=== PATIENT | male | born 1940 | race Caucasian/White ===

== ENCOUNTER 2022-11-07 11:18 | Observation (INO) | payer MEDICARE, SELFPAY ==
[2022-11-07] VITALS (37 sets, daily range): BP systolic 152–200; BP diastolic 54–161; PULSE 63–78; RESP 9–18; TEMP 36.3–36.8; O2SAT 94–100; BMI 29.2
--- NOTE | ~2022-11-07 | XR_ITS ---
XR chest 1V portable 11/07/2022 12:41 Indication: Syncope Procedure: AP portable chest Comparison: No prior studies for comparison. Findings: Heart size normal. No focal air space disease, pulmonary edema, pleural effusion or suspect ed pneumothorax. No acute osseous abnormality. Impression: 1: No acute cardiopulmonary disease. Reviewed, dictated and finalized at location A. Impression: 1: No acute cardiopulmonary disease.
--- NOTE | ~2022-11-07 | US_ITS ---
EXAMINATION: US carotid duplex BI DATE: 11/08/2022 10:25 INDICATION: Syncope TECHNIQUE: Grayscale, color Doppler, and pulsed Doppler images of the cervical carotid arteries were obtained. The degree of vessel stenosis is placed in one of the following categories: normal, <50%, 5 0-69%, >=70% but less than near-occlusion, near-occlusion, or total occlusion. Note that percent sten osis relative to normal distal artery lumen diameter is indirectly measured from velocity measurement s as described by Panda, et al. Radiology 2003; 229:340-346. Notes: Normal: Peak systolic velocity <125 centimeters/sec and no plaque <50%. Peak systolic velocity <125 ( EDV <40; ICA/CCA PSV ratio <2.0; used these factors only a tandem lesions or low cardiac output or co ntralateral disease) 50-69 %: PSV 125-230 (EDV 40-100; ratio 2-4) >= 70% but less than near occlusion: PSV greater than 230 (EDV > 100; ratio> 4.0) Near Occlusion: PSV that is variable; markedly narrowed lumen Occlusion: Absent flow on color/spectral Doppler and no lumen on colby scale. COMPARISON: None. FINDINGS: RIGHT: The right common carotid artery (CCA) peak systolic velocity (PSV) is 74 cm/s. The right internal car otid artery (ICA) PSV is 130 cm/s. The right ICA end-diastolic velocity (EDV) is 40 cm/s. The right I CA/CCA PSV ratio is 1.7. The external carotid artery (ECA) PSV is 309 cm/s. There is antegrade flow i n the right vertebral artery. LEFT: The left CCA PSV is 103 cm/s. The left ICA PSV is 82 cm/s. The left ICA EDV is 26 cm/s. The left ICA/ CCA PSV ratio is 0.8. The ECA PSV is 142 cm/s. There is antegrade flow in the left vertebral artery. IMPRESSION: 1. 50-69% stenosis in the right internal carotid artery by sonographic criteria. 2. Less than 50% stenosis in the left internal carotid artery by sonographic criteria. Reviewed, dictated and finalized at location A. IMPRESSION: 1. 50-69% stenosis in the right internal carotid artery by sonographic criteria . 2. Less than 50% stenosis in the left internal carotid artery by sonographic cr iteria.
--- NOTE | ~2022-11-07 | CT_ITS ---
EXAMINATION: CT cervical spine wo con DATE: 11/07/2022 12:56 INDICATION: Neck pain after fall TECHNIQUE: Computed tomography (CT) of the cervical spine was performed without intravenous contrast. The dose-length product was 452 mGy-cm. Automated exposure control and iterative reconstruction tech nique were employed. COMPARISON: None FINDINGS: There are bilateral vascular stents in the carotid arteries. There is degenerative disc dis ease at C3-4 through C6-7. There is degenerative anterolisthesis at C3-4 and C4-5. Odontoid process i s unremarkable. There is multilevel uncinate hypertrophy. There is mild facet hypertrophy at C2-C3 th rough C4-5. Vertebral body heights are maintained. There is right apical pleural thickening/scarring. This unremarkable craniovertebral junction is normal. No evidence for perched facet. No acute fractu re or traumatic malalignment. IMPRESSION: 1. No acute fracture. 2: Moderate cervical spondylosis. Reviewed, dictated and finalized at location A.
--- NOTE | ~2022-11-07 | CT_ITS ---
EXAMINATION: CT brain wo con DATE: 11/07/2022 12:56 INDICATION: Status post fall. Head injury. TECHNIQUE: Computed tomography (CT) of the head was performed without intravenous contrast. The dose- length product was 681.00 mGy-cm. Automated exposure control and iterative reconstruction technique were employed. COMPARISON: None FINDINGS: Generalized atrophy. There is a scalp hematoma along the left frontal parietal location. Ge neralized atrophy. There are scattered mild periventricular and subcortical white matter changes, mos t likely related to small vessel ischemic disease (microangiopathy). No ventriculomegaly or midline s hift. There is intracranial atherosclerosis. No acute intracranial hemorrhage, infarction, mass or ma ss effect. There is mild mucosal thickening of the maxillary and ethmoid sinuses. Mastoids are pneuma tized. No depressed skull fractures. IMPRESSION: 1. No acute intracranial abnormality. 2: Chronic age-related findings. Reviewed, dictated and finalized at location A.
--- NOTE | 2022-11-07 11:22 | ECG_ITS ---
Measurements Intervals [place] Rate: 67 P: 17 IA: 211 QRS: 45 QRSD: 104 T: 53 QT: 414 QTc: 439 Interpretive Statements SINUS RHYTHM WITH FIRST DEGREE AV BLOCK INCOMPLETE RIGHT BUNDLE BRANCH BLOCK BASELINE ARTIFACT- I, II, III, AVR, V1-V3 BORDERLINE ECG COMPARED TO ECG 11/19/2018 13:04:29 FIRST DEGREE AV BLOCK NOW PRESENT INCOMPLETE RIGHT BUNDLE-BRANCH BLOCK NOW PRESENT Electronically Signed On 11-07-2022 21:31:01 CDT by Lukas Anguiano D.O.
[2022-11-07 11:32] LABS: Basophils Percent Auto 0.6 % (0.2-1.2); Eosinophils Absolute Auto 0.1 K/mm3 (0-0.3); Eosinophils Percent Auto 2.4 % (0-4.4); Hematocrit 43.1 % (42.0-52.0); Hemoglobin 14.6 g/dL (14.0-18.0); Immature Granulocyte Absolute 0.01 K/mm3 (0.00-0.031); Immature Granulocyte Percent A 0.2 % (0-0.5); Immature Platelet Fraction Pct 5.1 % (0.9-11.2); Lymphocytes Absolute Auto 1.67 K/mm3 (0.9-3.2); Mean Corpuscular HGB Conc 33.9 g/dl (32-36); Mean Corpuscular Hemoglobin 31.5 pg (26-34); Mean Corpuscular Volume 92.9 fl (80-100); Mean Platelet Volume 10.4 fl (7.4-10.4); Monocytes Absolute Auto 0.8 K/mm3 (0.1-0.6); Neutrophils Absolute Auto 2.7 K/mm3 (1.3-6.7); Neutrophils Percent Auto 50.8 % (45.5-73.1); Platelet Count Result 133 k/mm3 (150-375); Red Blood Count 4.64 M/mm3 (4.6-6.20); Red Cell Distribution Width 14.3 % (11.5-14.5); White Blood Count 5.4 K/mm3 (4.5-10.0)
--- NOTE | 2022-11-07 12:34 | ED.SYNCOPE ---
HPI - Syncope General Chief Complaint: Syncope Stated Complaint: Syncopal Episode Time Seen by Provider: 11/07/22 12:09 History of Present Illness HPI narrative: Patient is an 82-year-old male with a history of hyperlipidemia, hypertension, TIA presenting after a syncopal episode. Patient does not remember the event. According to family, he was in the bathroom when his grandsons heard a thump. They then found him on the floor. States that he slowly woke up but he seemed confused. Patient's daughter states that he has had episodes of fainting in the past that they have attributed to low blood pressure but normally he wakes up and is completely back at baseline. Patient sustained an abrasion to his head and as he continued to be confused, EMS was called. For EMS, he was ANO x2 which is abnormal for him. He is normally ANO x4. Currently, the patient complains of a headache. Denies numbness or weakness. He denies any chest pain, diaphoresis, palpitations, shortness of breath. States that he was in his normal state of health prior to this episode. No tongue biting or loss of continence. Related Data Home Medications Medication Instructions Recorded Confirmed apixaban 5 mg tablet (Eliquis) 5 mg PO BID 11/07/22 11/07/22 atorvastatin 20 mg tablet 20 mg PO HS 11/07/22 11/07/22 levothyroxine 50 mcg tablet 50 mcg PO DAILY 11/07/22 11/07/22 (Synthroid) lisinopril 20 1 tablet PO DAILY 11/07/22 11/07/22 mg-hydrochlorothiazide 25 mg tablet triamcinolone acetonide 0.1 1 applic topical TID 11/07/22 11/07/22 %-emollient comb.[email or web address] topical cream Allergies Allergy/AdvReac Type Severity Reaction Status Date / Time atorvastatin Allergy Intermediate Other Verified 11/07/22 12:14 Review of Systems Review of Systems: All systems reviewed & are unremarkable except as noted in HPI and below [facility] Past Medical History Medical History (Updated 11/12/22 @ 10:11 by Ama Lowe MD) Chronic anticoagulation Deep venous thrombosis (04/2022) Hyperlipidemia Hypertension Hypothyroidism Transient ischemic attack Surgical History Surgical History (Updated 11/07/22 @ 22:17 by Yovana Dominguez PA-C) History of bilateral knee replacement History of cataract extraction Family History Family History Other Unknown family medical history Social History Social History (Updated 11/07/22 @ 22:18 by oYvana Dominguez PA-C) Social History: Surrogate medical decision maker: Kailey Schuler, spouse. Code status: Full code. Smoking status: Former smoker Tobacco type: pipe Alcohol intake: former Substance use: never Lack of Transportation: YES Lack of Food: Never True Current Housing: I Have Housing Concerned About Future Housing: No Difficulty Paying Gas/Electric Bills: No Difficulty Paying for Meds: No Currently Unemployed: No Education: Trade/Vocational Certificate Difficulty w/ Childcare or Family Care: No Additional living arrangements comments: Lives with spouse in [place]. Occupation/Education: retired Spiritual care concerns: No Agree to blood products: Yes Exam Narrative: GENERAL: Elderly male laying in bed in no acute distress HEAD: Normocephalic, superficial abrasion upper posterior scalp EYES: PERRLA and EOMI. ENT: Nares clear, no rhinorrhea or epistaxis. Mucous membranes moist. NECK: Supple. No midline tenderness CHEST: Clear to auscultation. No respiratory distress. HEART: Regular rate and rhythm. Normal peripheral pulses. ABDOMEN: Soft, nontender, nondistended EXTREMITIES: Normal range of motion. No edema. SKIN: Warm, dry, no rash. NEURO: No focal deficits. Alert and oriented x3. 5 out of 5 strength in all extremities, no sensory deficits, no facial droop PSYCH: Normal mood and affect. Course Vital Signs Vital signs: Vital Signs Temperature 98.2 F 11/07/22 11:14 Pulse Rate 71
--- NOTE | 2022-11-07 12:46 | PC.NURSE ---
pt off floor to radiology.
[2022-11-07] MEDS: LACTATED RINGERS 1,000 ML 999 ML IV CONT (13:19)
[2022-11-07 13:30] LABS: INR 1.2; Partial Thromboplastin Time 27.5 SECONDS (22.3-36.8); Prothrombin Time 14.5 Seconds (11.1-14.7)
[2022-11-07 13:43] LABS: Troponin I < 0.012 ng/mL (0.000-0.034)
--- NOTE | 2022-11-07 14:11 | PC.NURSE ---
Called lab inquiring about CMP. Lab to run at this time.
[2022-11-07 14:22] LABS: Alanine Aminotransferase 54 U/L (6-50); Albumin Level 4.1 g/dL (3.5-5.1); Alkaline Phosphatase 58 U/L (38-126); Anion Gap 7 mmol/L (8-16); Aspartate Amino Transferase 48 U/L (17-59); Bilirubin,Total 0.5 mg/dL (0.2-1.3); Blood Urea Nitrogen 24 mg/dL (9-20); Calcium 9.2 mg/dL (8.4-10.2); Carbon Dioxide 34 mmol/L (22-30); Chloride 98 mmol/L (98-107); Estimated CRCL calculation 56 ml/min; Estimated Glomerular Filt Rate > 60; Glucose 117 mg/dL (65-110); Potassium 4.6 mmol/L (3.4-5.0); Sodium 139 mmol/L (137-145)
--- NOTE | 2022-11-07 14:33 | PC.NURSE ---
pt improving, oriented to person, place, AND time currently. Updated on lab results.
--- NOTE | 2022-11-07 15:20 | PC.NURSE ---
Orthostatics complete. Pt able to stand with minimal assistance. Reported light headedness when transferring from laying to sitting, but BP increased. Was able to continue standing to urinate independently.
--- NOTE | 2022-11-07 16:15 | PC.NURSE ---
MD aware of elevated BP. No orders or interventions at this time. Per MD, against standard of care to treat asymptomatic HTN.
--- NOTE | 2022-11-07 16:45 | PC.NURSE ---
Report called to Ama on [facility].
[2022-11-07 16:51] LABS: Troponin I < 0.012 ng/mL (0.000-0.034)
--- NOTE | 2022-11-07 18:00 | ADMGEN ---
This patient, Emigdio Schuler, was admitted to Medical Room 260-01. Patient/family oriented to hospital policies and general routines including ID bracelet, bed and alarms, visiting hours, pain management, procedures, bathroom and other care routines, personal items, smoking policy, room service/diet, and visiting hours. Information on how to activate the Rapid Response Team has been discussed. Patient/Family are encouraged to report perceived risks to care and to ask questions if they do not understand what they are told or what they should do.
--- NOTE | 2022-11-07 20:15 | PM.IMHP ---
H&P: HPI History of Present Illness Date/Time: 11/07/22 20:15 Chief Complaint: Syncope. Narrative: This is a pleasant 82-year-old male with hypertension, hyperlipidemia, hypothyroidism, and DVT on anticoagulation who presented to the emergency department for evaluation after syncopal episode. Patient provides the following history. He reportedly felt just fine when he got up this morning. Not long prior to arrival he went to the bathroom and had an uneventful bowel movement. The next thing he knew he was waking up on the floor on his left side. Grandson heard him fall and when he ran to the bathroom the patient was alert but seemed a bit confused. He does remember feeling perhaps a bit nauseated and lightheaded prior to the incident. He does not recall having chest pain or shortness of breath. He also denies vertigo, auditory and visual changes, focal weakness, paresthesias, palpitations, and sensations of racing heart. He has a history of syncope related to low blood pressure but that has not happened recently. On arrival to the emergency department he was alert and oriented x4. His blood pressures have been stable and in fact they have been running high, in the 150s to 180s systolic. Labs did not show any significant abnormalities when compared to prior testing. EKG showed a sinus rhythm with first-degree AV block and incomplete right bundle branch block. No acute findings were noted on CT of the head, cervical spine, or chest x-ray. He is being admitted in this setting for closer monitoring. Currently he has no complaints aside from a bit of a headache on the left side. Review of Systems Review of Systems: Twelve systems were reviewed and are negative except for as per HPI. [facility] Past Medical History Medical History (Updated 11/07/22 @ 22:18 by Yovana Dominguez PA-C) Chronic anticoagulation Deep venous thrombosis (04/2022) Hyperlipidemia Hypertension Hypothyroidism Transient ischemic attack Surgical History Surgical History (Updated 11/07/22 @ 22:17 by Yovana Dominguez PA-C) History of bilateral knee replacement History of cataract extraction Family History Family History Other Unknown family medical history Social History Social History (Updated 11/07/22 @ 22:18 by Yovana Dominguez PA-C) Social History: Surrogate medical decision maker: Kailey Birdsell, spouse. Code status: Full code. Smoking status: Former smoker Tobacco type: pipe Alcohol intake: former Substance use: never Lack of Transportation: YES Lack of Food: Never True Current Housing: I Have Housing Concerned About Future Housing: No Difficulty Paying Gas/Electric Bills: No Difficulty Paying for Meds: No Currently Unemployed: No Education: Trade/Vocational Certificate Difficulty w/ Childcare or Family Care: No Additional living arrangements comments: Lives with spouse in [place]. Occupation/Education: retired Spiritual care concerns: No Agree to blood products: Yes Meds Home Medications and Allergies Home Medications Medication Instructions Recorded Confirmed Type apixaban 5 mg tablet (Eliquis) 5 mg PO BID 11/07/22 11/07/22 History atorvastatin 20 mg tablet 20 mg PO HS 11/07/22 11/07/22 History levothyroxine 50 mcg tablet 50 mcg PO DAILY 11/07/22 11/07/22 History (Synthroid) lisinopril 20 1 tablet PO DAILY 11/07/22 11/07/22 History mg-hydrochlorothiazide 25 mg tablet triamcinolone acetonide 0.1 1 applic topical TID 11/07/22 11/07/22 History %-emollient comb.no.45 topical cream Allergies Allergy/AdvReac Type Severity Reaction Status Date / Time atorvastatin Allergy Intermediate Other Verified 11/07/22 12:14 Vital Signs Vital Signs - 24 hr 11/07/22 11:14 11/07/22 12:14 11/07/22 13:03 Temperature 98.2 F Pulse Rate 71 67 69 Respiratory Rate 14 14 Blood Pressure 160/91 H Pulse Oximetry 96 97 Oxygen
[2022-11-07 20:53] LABS: Troponin I < 0.012 ng/mL (0.000-0.034)
[2022-11-07] MEDS: ACETAMINOPHEN 325 MG TABLET 650 MG PO (22:39)
[2022-11-08] VITALS (14 sets, daily range): BP systolic 100–173; BP diastolic 40–72; PULSE 63–81; RESP 16–18; TEMP 36.3–36.4; O2SAT 95–98
[2022-11-08] MEDS: hydrALAZINE HCL 20 MG/ML VIAL 10 MG IV PUSH (03:44)
[2022-11-08 05:40] LABS: Hematocrit 40.1 % (42.0-52.0); Hemoglobin 13.7 g/dL (14.0-18.0); Immature Platelet Fraction Pct 5.9 % (0.9-11.2); Mean Corpuscular HGB Conc 34.2 g/dl (32-36); Mean Corpuscular Hemoglobin 31.7 pg (26-34); Mean Corpuscular Volume 92.8 fl (80-100); Platelet Count Result 127 k/mm3 (150-375); Red Blood Count 4.32 M/mm3 (4.6-6.20); Red Cell Distribution Width 14.4 % (11.5-14.5); White Blood Count 5.2 K/mm3 (4.5-10.0)
[2022-11-08] MEDS: LEVOTHYROXINE SODIUM 50 MCG TABLET PO (05:41)
[2022-11-08 05:46] LABS: Alanine Aminotransferase 43 U/L (6-50); Albumin Level 3.6 g/dL (3.5-5.1); Alkaline Phosphatase 48 U/L (38-126); Anion Gap 5 mmol/L (8-16); Aspartate Amino Transferase 36 U/L (17-59); Bilirubin,Total 0.7 mg/dL (0.2-1.3); Blood Urea Nitrogen 21 mg/dL (9-20); Calcium 8.4 mg/dL (8.4-10.2); Carbon Dioxide 27 mmol/L (22-30); Chloride 104 mmol/L (98-107); Estimated CRCL calculation 65 ml/min; Estimated Glomerular Filt Rate > 60; Glucose 114 mg/dL (65-110); Magnesium 1.4 mg/dL (1.6-2.3); Potassium 3.7 mmol/L (3.4-5.0); Sodium 136 mmol/L (137-145)
[2022-11-08] MEDS: lisinopriL 20 MG TABLET PO (09:51)
[2022-11-08] MEDS: hydroCHLOROthiazide 25 MG TABLET PO (09:52)
[2022-11-08] MEDS: TRIAMCINOLONE ACET 0.1% CREAM 80 GM TUBE 1 APPLIC TOPICAL (09:52)
[2022-11-08] MEDS: ACETAMINOPHEN 325 MG TABLET 650 MG PO (10:58)
--- NOTE | 2022-11-08 11:57 | PM.IMPN ---
Progress Note: A&P Assessment and Plan (1) Syncope: Code(s): R55 - Syncope and collapse Status: Acute (2) Scalp hematoma: Code(s): S00.03XA - Contusion of scalp, initial encounter Status: Acute (3) Hypertension: Code(s): I10 - Essential (primary) hypertension Status: Acute (4) Hyperlipidemia: Code(s): E78.5 - Hyperlipidemia, unspecified Status: Acute (5) Hypothyroidism: Code(s): E03.9 - Hypothyroidism, unspecified Status: Acute (6) Chronic anticoagulation: Code(s): Z79.01 - retirement (current) use of anticoagulants Status: Acute Plan The patient presented to the emergency department via EMS from home for evaluation of a syncopal episode which occurred shortly after having an unremarkable bowel movement. Labs, imaging, EKG, and all reports were personally reviewed. Patient does mention feeling perhaps a bit nauseated and lightheaded prior to the event and I suspect this is likely a vasovagal syncope. He apparently has a history of syncopal episodes related to drop in blood pressure though his blood pressures have been running high since arrival. EKG does not show any acute ST segment changes but does show a first-degree block and incomplete right bundle branch block which are new compared to prior tracings. He will be monitor on telemetry to rule out cardiac dysrhythmia. Echocardiogram and carotid Doppler ultrasounds ordered for further evaluation. Orthostatic vital signs will be monitored. Fall precautions initiated. Apixaban will be held for 24 hours given the fall with scalp hematoma. Pulmonary embolism unlikely as he has been compliant with apixaban he denies chest pain shortness a breath. Continue neurologic checks in the interim. Continue levothyroxine and check TSH. The rest of his home medications will be reviewed and resumed as appropriate. 11/08/2022 interval history: 82-year-old male presented with complaint of syncopal episode, there were no prodrome symptoms or chest pain shortness of breath dizziness or palpitation, so far on the workup is negative including troponin carotid ultrasound showed 1. 50-69% stenosis in the right internal carotid artery by sonographic criteria. 2. Less than 50% stenosis in the left internal carotid artery by sonographic criteria and cardiac echo is pending. Currently patient is taking Eliquis for DVT, will add low-dose aspirin and patient is taking Lipitor 20 mg will increase to 40 mg q.d., will have a PT OT evaluate the patient and further recommendation to follow, will discharge the patient home tomorrow. Patient is present in the room answered all her questions. Subjective Date/time seen: 11/08/22 11:57 Syncope. HPI-Narrative: This is a pleasant 82-year-old male with hypertension, hyperlipidemia, hypothyroidism, and DVT on anticoagulation who presented to the emergency department for evaluation after syncopal episode. Patient provides the following history. He reportedly felt just fine when he got up this morning.? Not long prior to arrival he went to the bathroom and had an uneventful bowel movement. The next thing he knew he was waking up on the floor on his left side. Grandson heard him fall and when he ran to the bathroom the patient was alert but seemed a bit confused. He does remember feeling perhaps a bit nauseated and lightheaded prior to the incident. He does not recall having chest pain or shortness of breath. He also denies vertigo, auditory and visual changes, focal weakness, paresthesias, palpitations, and sensations of racing heart. He has a history of syncope related to low blood pressure but that has not happened recently. On arrival to the emergency department he was alert and oriented x4. His blood pressures have been stable and in fact they have been running high, in the 150s to 180s systolic. Labs did not show any significant abnormalities when compared to prior testing. EKG showed a sinus rhythm with first-degr
[2022-11-08] MEDS: ATORVASTATIN 20 MG TABLET PO (21:05)
[2022-11-09] VITALS (9 sets, daily range): BP systolic 115–149; BP diastolic 62–76; PULSE 59–70; RESP 14–18; TEMP 35.1–37; O2SAT 96–99
[2022-11-09] MEDS: LEVOTHYROXINE SODIUM 50 MCG TABLET PO (05:59)
[2022-11-09] MEDS: lisinopriL 20 MG TABLET PO (08:46)
[2022-11-09] MEDS: APIXABAN 5 MG TABLET PO (08:46)
[2022-11-09] MEDS: hydroCHLOROthiazide 25 MG TABLET PO (08:46)
[2022-11-09] MEDS: PERFLUTREN LIPID MICROSPHERES 1.5 ML VIAL DILUTED TO 10 ML TOTAL VOLUME IV PUSH (10:05)
--- NOTE | 2022-11-09 10:05 | IVDEFINITY ---
Prior to administration of IV Definity the patient was educated on the risks and benefits of the imaging enhancing agent including potential adverse side effects. The patient verbalized understanding. Allergies were verified. No exclusion criteria were identified and at least one of the following inclusion criteria were met: 1) physician request, 2) patient technically difficult to image (per the [place] [employer] guidelines of two or more segments not discernable within the apical view), or 3) questionable left ventricular function. ?
[2022-11-09] MEDS: ACETAMINOPHEN 325 MG TABLET 650 MG PO ×2 (11:08)
--- NOTE | 2022-11-09 17:13 | PM.DS ---
DS: Admitting Diagnosis Discharge Date 10/12/2022 Admitting Diagnosis Syncope DS: Discharge Diagnosis Discharge Diagnosis (1) Syncope: Code(s): R55 - Syncope and collapse Status: Acute (2) Scalp hematoma: Code(s): S00.03XA - Contusion of scalp, initial encounter Status: Acute (3) Hypertension: Code(s): I10 - Essential (primary) hypertension Status: Acute (4) Hyperlipidemia: Code(s): E78.5 - Hyperlipidemia, unspecified Status: Acute (5) Hypothyroidism: Code(s): E03.9 - Hypothyroidism, unspecified Status: Acute (6) Chronic anticoagulation: Code(s): Z79.01 - nursing home (current) use of anticoagulants Status: Acute DS: Summary Hospital Course Reason for hospitalization: Syncope. Narrative: This is a pleasant 82-year-old male with hypertension, hyperlipidemia, hypothyroidism, and DVT on anticoagulation who presented to the emergency department for evaluation after syncopal episode. Patient provides the following history. He reportedly felt just fine when he got up this morning.? Not long prior to arrival he went to the bathroom and had an uneventful bowel movement. The next thing he knew he was waking up on the floor on his left side. Grandson heard him fall and when he ran to the bathroom the patient was alert but seemed a bit confused. He does remember feeling perhaps a bit nauseated and lightheaded prior to the incident. He does not recall having chest pain or shortness of breath. He also denies vertigo, auditory and visual changes, focal weakness, paresthesias, palpitations, and sensations of racing heart. He has a history of syncope related to low blood pressure but that has not happened recently. On arrival to the emergency department he was alert and oriented x4. His blood pressures have been stable and in fact they have been running high, in the 150s to 180s systolic. Labs did not show any significant abnormalities when compared to prior testing. EKG showed a sinus rhythm with first-degree AV block and incomplete right bundle branch block. No acute findings were noted on CT of the head, cervical spine, or chest x-ray. He is being admitted in this setting for closer monitoring. Currently he has no complaints aside from a bit of a headache on the left side. Hospital Course: 82-year-old male presented with complaint of syncopal episode, there were no prodrome symptoms or chest pain shortness of breath dizziness or palpitation, so far on the workup is negative including troponin carotid ultrasound showed?1. 50-69% stenosis in the right internal carotid artery by sonographic criteria. 2. Less than 50% stenosis in the left internal carotid artery by sonographic criteria and cardiac echo is pending.? Currently patient is taking Eliquis for DVT, will add low-dose aspirin and patient is taking Lipitor 20 mg will increase to 40 mg q.d., will have a PT OT evaluate the patient and further recommendation to follow, will discharge the patient home tomorrow.? Patient is present in the room answered all her questions. Patient is instructed be careful with getting up and sitting down, use walker and support, patient to follow-up with his primary care provider as soon as possible, patient is instructed if any symptoms worsen to go to nearest emergency department Time Spent with Patient Time attestation: Total time spent providing and/or coordinating discharge services: Exam Narrative: Patient is comfortable, NAD HEENT: eyes are clear and none icteric LUNGS:CTA HEART: RR S1S2 ABD: BS+, Soft and nontender Lower extremities: no edema SKIN: nonjaundiced Neuro: grossly intact. Discharge Plan Discharge Attending physician on discharge: Ramonita Fontenot Consulting providers: Yovana Dominguez ; Lukas Anguiano ; Bryan Langley ; Shan Butler Discharging Clinician: Ramonita Fontenot Patient Disposition: Home, Self-Care Activity: as tolerated Diet: hea
--- NOTE | 2022-11-09 22:19 | ECHO_ITS ---
Patient Info Name: Emigdio Schuler Age: 82 years : 1940 Gender: Male Ht: 71 in Wt: 198 lbs BSA: 2.14 m2 HR: 60 bpm BP: 146 / 62 mmHg Heart Rhythm: Sinus Rhythm Technical Quality: Fair Exam Date: 11/09/2022 9:21 AM Exam Location: [facility] Patient Status: Outpatient Admit Date: 11/07/2022 Staff Ordering Physician: Yovana Dominguez PA-C Affiliate Manager: Elsie Hart RDCS Attending Provider: Ramonita Fontenot MD Referring Physician: Angelica HU; Exam Type: CA echo dop color flow w con Study Info Indications R55 - Syncope and collapse Complete two-dimensional, color flow and Doppler transthoracic echocardiogram is performed with contrast to opacify the left ventricle and to improve the deliniation of the left ventricle endocardial borders. Contrast/Agitated Saline Contrast/Ag. Saline: Definity Amount: 3.00 ml Administered By: Elsie Hart RDCS Existing IV Access: Yes IV Access Condition: patent with no signs of infiltration Summary 1. Definity contrast used to improve visualization. 2. Normal left ventricular size and systolic function with grade 1 diastolic noncompliance. 3. Mildly sclerotic aortic valve which is not stenotic. 4. Modest left atrial enlargement. Left Ventricle Left ventricular chamber dimension is normal. Left ventricular systolic function is hyperdynamic, estimated at Empty. There is mild concentric increased left ventricular wall thickness. The left ventricular diastolic function is grade I diastolic dysfunction. Right Ventricle Right ventricular chamber dimension is normal. Left Atria Left atrial chamber dimension is mildly enlarged. Right Atria Right atrial chamber dimension is normal. Aortic Valve The aortic valve is trileaflet. There is mild aortic valve sclerosis. Pulmonic Valve The pulmonic valve is not well visualized. Mitral Valve The mitral valve has normal leaflets. Tricuspid Valve The tricuspid valve leaflets are normal. Pericardium/Pleural The pericardium appears normal. Aorta The aortic root size at the sinus of Valsalva is normal. Left Ventricular Outflow Tract Name Value Normal LVOT 2D LVOT Diameter 1.99 cm LVOT Doppler LVOT Peak Gradient 4 mmHg LVOT Mean Gradient 2 mmHg LVOT VTI 20.53 cm LVOT VTI/AV VTI Ratio 0.65 LVOT Stroke Volume 63.97 ml LVOT CO 4.05 l/min LVOT CI 1.90 L/min/m2 Pulmonic Valve Name Value Normal RVOT Doppler RVOT Peak Gradient 2 mmHg PV Doppler PV Peak Gradient
== END 2022-11-09 18:13 | disposition home or self-care (01) ==
LOC: ANHED 12:09 → ANH2MED 16:15
PROVIDERS: Emergency Medicine; Physician Assistant; Admitting Provider Family Medicine; Emergency Provider Emergency Medicine; PCP Family Medicine; Visit Provider Family Medicine
DX: R55 Syncope and collapse (principal); S00.03XA Contusion of scalp, initial encounter; Y92.002 Bathroom of unspecified non-institutional (private) residence as the place of occurrence of the external cause; I65.21 Occlusion and stenosis of right carotid artery; I10 Essential (primary) hypertension; E78.5 Hyperlipidemia, unspecified; E03.9 Hypothyroidism, unspecified; M47.812 Spondylosis without myelopathy or radiculopathy, cervical region; I44.0 Atrioventricular block, first degree; I45.10 Unspecified right bundle-branch block; Z86.73 Personal history of transient ischemic attack (TIA), and cerebral infarction without residual deficits; Z86.718 Personal history of other venous thrombosis and embolism; Z79.01 Long term (current) use of anticoagulants; Z79.52 Long term (current) use of systemic steroids; Z79.899 Other long term (current) drug therapy; Z87.891 Personal history of nicotine dependence
CPT/HCPCS: 36415; 70450; 71045; 72125; 80053; 83735; 84443; 84484; 85025; 85027; 85055; 85610; 85730; 93005; 93880; 96361; 96374; 96375; 97161; 97165; 97530; 99285; A9270; C8929; G0378; J0131; J0360; J7120; Q9957

== ENCOUNTER 2022-12-01 10:44 | Observation (INO) | payer MEDICARE, SELFPAY ==
[2022-12-01] VITALS (23 sets, daily range): BP systolic 112–187; BP diastolic 49–75; PULSE 63–91; RESP 10–27; TEMP 36.7–37.1; O2SAT 88–100; BMI 27.2
--- NOTE | ~2022-12-01 | CT_ITS ---
EXAMINATION: CT brain wo con DATE: 12/01/2022 11:51 INDICATION: Lightheadedness. Fall. TECHNIQUE: Computed tomography (CT) of the head was performed without intravenous contrast. The mA wa s adjusted according to patient size. Iterative reconstruction technique was employed. The dose-lengt h product was 605.33 mGy-cm. COMPARISON: Head CT 11/07/2022 FINDINGS: There are scattered areas of low attenuation in the cerebral white matter. There is no intr acranial hemorrhage, acute infarction, or abnormal intracranial mass lesion. The ventricles are abhay l in size. There is mild mucosal thickening in the paranasal sinuses. There are likely changes of ocu lar lens replacement surgeries. The mastoid air cells are normal. There is left frontal scalp soft ti ssue swelling. IMPRESSION: 1. Stable moderate nonspecific cerebral white matter disease, which likely represents chronic small v essel ischemic disease. Reviewed, dictated and finalized at location A. IMPRESSION: 1. Stable moderate nonspecific cerebral white matter disease, which likely repr esents chronic small vessel ischemic disease.
--- NOTE | ~2022-12-01 | MR_ITS ---
EXAMINATION: MR brain/brain stem wo con DATE: 12/02/2022 13:26 INDICATION: Stroke. TECHNIQUE: Magnetic resonance imaging (MRI) of the brain and brainstem was performed without intraven ous contrast. COMPARISON: Head CT 12/01/2022 FINDINGS: There is an acute infarct in the josee on the left. There is no intracranial hemorrhage or a bnormal mass lesion. There are scattered areas of nonspecific increased T2-weighted signal intensity in the cerebral white matter and josee. The ventricles are normal in size. There is mild mucosal thick ening in the paranasal sinuses. There are likely changes of ocular lens replacement surgeries. The ma stoid air cells are normal. IMPRESSION: 1. Acute infarct in the josee on the left. 2. Moderate nonspecific cerebral white matter disease and pontine disease, which likely represents ch ronic small vessel ischemic disease. Reviewed, dictated and finalized at location A. IMPRESSION: 1. Acute infarct in the josee on the left. 2. Moderate nonspecific cerebral white matter disease and pontine disease, whic h likely represents chronic small vessel ischemic disease.
--- NOTE | ~2022-12-01 | CT_ITS ---
EXAMINATION: CTA brain carotid DATE: 12/02/2022 09:35 INDICATION: Syncope. Slurred speech. Confusion. TECHNIQUE: Computed tomographic angiography (CTA) of the head was performed without and with 100 mL O mnipaque-350 intravenous contrast. CTA of the neck was performed with intravenous contrast. Automated exposure control and iterative reconstruction technique were employed. The dose-length product was 1 791.10 mGy-cm. Maximum intensity projection and volume rendered 3D-reconstructions were created by ana shelton technologist on a separate workstation. COMPARISON: Head CT 12/01/2022 FINDINGS: HEAD CTA: There are scattered areas of low attenuation in the cerebral white matter. There is no intr acranial hemorrhage, acute infarction, or abnormal intracranial mass lesion. The ventricles are abhay l in size. There are likely changes of ocular lens replacement surgeries. There is mild mucosal thick ening in the paranasal sinuses. The mastoid air cells are normal. The vertebral arteries are codomina nt. There is no significant stenosis of basilar artery or the posterior cerebral arteries. Posterior communicating arteries are not identified. There is moderate stenosis of the intracranial internal ca rotid arteries. There is no significant stenosis of the anterior or middle cerebral arteries. Anterio r communicating artery is normal. There is no aneurysm. NECK CTA: There is mild scarring at the lung apices. There are no pathologically enlarged lymph nodes . There is a 2.1 cm sialolith in the left floor of mouth in the duct for left submandibular gland. Th ere is severe atrophy of left submandibular gland. There is no significant stenosis of the vertebral arteries. There are patent stents of the cervical carotid arteries. There is plaque in right internal carotid artery extending beyond the distal margin of the stent with 32% stenosis relative to normal distal artery lumen diameter. There is severe cervical spondylosis. IMPRESSION: 1. Stable moderate nonspecific cerebral white matter disease, which likely represents chronic small v essel ischemic disease. 2. 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 3. Patent stents in the cervical carotid arteries. 4. 32% stenosis of the right internal carotid artery distal to the stent relative to normal distal ar christianne lumen diameter. Reviewed, dictated and finalized at location A. IMPRESSION: 1. Stable moderate nonspecific cerebral white matter disease, which likely repr esents chronic small vessel ischemic disease. 2. 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 3. Patent stents in the cervical carotid arteries. 4. 32% stenosis of the right internal carotid artery distal to the stent relati ve to normal distal artery lumen diameter.
--- NOTE | ~2022-12-01 | XR_ITS ---
EXAMINATION: XR chest 1V portable 12/01/2022 11:40 INDICATION: Status post fall. Chest pain. PROCEDURE: AP portable chest COMPARISON: 11/07/2022 FINDINGS: Left basilar atelectasis/scarring. No focal pneumonia. The cardiomediastinal silhouette is within normal limits. There are no pleural effusions. There is no pneumothorax suspected. IMPRESSION: 1: NO ACUTE CARDIOPULMONARY DISEASE. Reviewed, dictated and finalized at location L.
--- NOTE | ~2022-12-01 | CT_ITS ---
EXAMINATION: CT cervical spine wo con DATE: 12/01/2022 11:51 INDICATION: Neck injury. TECHNIQUE: Computed tomography (CT) of the cervical spine was performed without intravenous contrast. Automated exposure control and iterative reconstruction technique were employed. The dose-length pro duct was 496.39 mGy-cm. COMPARISON: None FINDINGS: There are stents in the bilateral carotid arteries. There is 2 mm anterolisthesis of C4 on C5. Vertebral body heights are normal. There is mildly decreased disc height at C3-C4 and C4-C5 and s everely decreased disc height at C5-C6 and C6-C7. The following disc levels are specifically discusse d: C2-C3: There is mild bilateral uncovertebral joint osteoarthritis. There is mild right and severe lef t facet joint osteoarthritis. There is moderate left neural foraminal stenosis. There is no central c anal stenosis. C3-C4: There is mild bilateral uncovertebral joint osteoarthritis. There is severe right and moderate left facet joint osteoarthritis. There is mild bilateral neural foraminal stenosis. There is mild ce ntral canal stenosis. C4-C5: There is mild left uncovertebral joint osteoarthritis. There is severe bilateral facet joint o steoarthritis. There is mild bilateral neural foraminal stenosis. There is mild central canal stenosi s. C5-C6: There is severe bilateral uncovertebral joint osteoarthritis. There is mild bilateral facet alfonzo int osteoarthritis. There is moderate bilateral neural foraminal stenosis. There is mild central alexus l stenosis. C6-C7: There is severe bilateral uncovertebral joint osteoarthritis. There is moderate right and mild left facet joint osteoarthritis. There is mild right and moderate left neural foraminal stenosis. Th ere is moderate central canal stenosis. C7-T1: There is mild bilateral uncovertebral joint osteoarthritis. There is severe bilateral facet alfonzo int osteoarthritis. There is mild bilateral neural foraminal stenosis. There is no central canal sten osis. IMPRESSION: 1. No fracture. 2. Severe cervical spondylosis. Reviewed, dictated and finalized at location A.
--- NOTE | 2022-12-01 10:53 | ECG_ITS ---
Measurements Intervals [place] Rate: 58 P: NM: 0 QRS: 61 QRSD: 94 T: 67 QT: 429 QTc: 423 Interpretive Statements SINUS BRADYCARDIA WITH FIRST-DEGREE AV BLOCK MODERATE ST DEPRESSION NONSPECIFIC ST ABNORMALITY BORDERLINE ECG COMPARED TO ECG 11/07/2022 11:23:06 ST (T WAVE) DEVIATION NOW PRESENT Electronically Signed On 12-01-2022 16:24:48 CDT by Leander Bergman M.D.
[2022-12-01 11:30] LABS: Basophils Percent Auto 0.8 % (0.2-1.2); Eosinophils Absolute Auto 0.1 K/mm3 (0-0.3); Eosinophils Percent Auto 1.9 % (0-4.4); Hematocrit 42.2 % (42.0-52.0); Hemoglobin 14.5 g/dL (14.0-18.0); Immature Granulocyte Absolute 0.01 K/mm3 (0.00-0.031); Immature Granulocyte Percent A 0.2 % (0-0.5); Immature Platelet Fraction Pct 5.8 % (0.9-11.2); Lymphocytes Absolute Auto 1.83 K/mm3 (0.9-3.2); Lymphocytes Percent Auto 35.4 % (18.3-44.2); Mean Corpuscular HGB Conc 34.4 g/dl (32-36); Mean Corpuscular Hemoglobin 32.3 pg (26-34); Mean Platelet Volume 10.8 fl (7.4-10.4); Monocytes Absolute Auto 0.9 K/mm3 (0.1-0.6); Neutrophils Absolute Auto 2.3 K/mm3 (1.3-6.7); Neutrophils Percent Auto 44.7 % (45.5-73.1); Platelet Count Result 143 k/mm3 (150-375); Red Blood Count 4.49 M/mm3 (4.6-6.20); Red Cell Distribution Width 14.3 % (11.5-14.5); White Blood Count 5.2 K/mm3 (4.5-10.0)
[2022-12-01 11:44] LABS: Alanine Aminotransferase 61 U/L (6-50); Albumin Level 4.3 g/dL (3.5-5.1); Alkaline Phosphatase 50 U/L (38-126); Anion Gap 7 mmol/L (8-16); Aspartate Amino Transferase 59 U/L (17-59); Bilirubin,Total 0.7 mg/dL (0.2-1.3); Blood Urea Nitrogen 24 mg/dL (9-20); Calcium 9.4 mg/dL (8.4-10.2); Carbon Dioxide 32 mmol/L (22-30); Chloride 99 mmol/L (98-107); Estimated Glomerular Filt Rate > 60; Glucose 116 mg/dL (65-110); Potassium 4.6 mmol/L (3.4-5.0); Sodium 138 mmol/L (137-145)
[2022-12-01 11:54] LABS: INR 1.2; Prothrombin Time 14.5 Seconds (11.1-14.7)
[2022-12-01 11:55] LABS: Troponin I < 0.012 ng/mL (0.000-0.034)
[2022-12-01 11:55] LABS: Partial Thromboplastin Time 28.2 SECONDS (22.3-36.8)
[2022-12-01] MEDS: SODIUM CHLORIDE 0.9% IV 1,000 ML 999 ML IV CONT (13:06)
[2022-12-01 13:23] LABS: Appearance Urine Clear (Clear); Bacteria Urine None Seen /hpf; Bilirubin Urine Negative (Negative); Blood Urine Negative (Negative); Color Urine Yellow (Yellow); Glucose Urine UA Negative (Negative); Ketones Urine Negative (Negative); Leukocyte Esterase Ur Trace LEU/UL (Negative); Nitrate Urine Negative (Negative); Non Pathogenic Casts 0-2; Protein Urine Negative (Negative); RBC Urine 0-2 /hpf (0-2); Specific Grav Ur 1.011 (1.001-1.035); Squamous Epithelial Cell Urine None seen /hpf (Few); Urobilinogen Urine 0.2 mg/dL (<2.0); WBC Urine 0-5 /hpf; pH Urine 7.5 (5.0-9.0)
--- NOTE | 2022-12-01 13:23 | ED.GENADULT ---
HPI - General Adult General Chief complaint: Dizziness Stated complaint: light-headed Time Seen by Provider: 12/01/22 11:06 Source: RN notes reviewed History of Present Illness HPI narrative: Patient presents emergency department via EMS for syncopal episode. 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 He was sitting in a chair when he states he felt lightheaded and then slid out of the chair onto the ground per bystanders patient was noted to have some low blood pressures as well as not be able to assist with sitting up or taken off sure when EMS initially arrived. Patient denies having recent illness to use any chest pain shortness of breath abdominal pain nausea vomiting patient was recently admitted to the hospital for syncopal episode approximately 1 month ago with negative for Related Data Home Medications Medication Instructions Recorded Confirmed apixaban 5 mg tablet (Eliquis) 5 mg PO BID 11/07/22 11/07/22 atorvastatin 20 mg tablet 20 mg PO HS 11/07/22 11/07/22 levothyroxine 50 mcg tablet 50 mcg PO DAILY 11/07/22 11/07/22 (Synthroid) lisinopril 20 1 tablet PO DAILY 11/07/22 11/07/22 mg-hydrochlorothiazide 25 mg tablet triamcinolone acetonide 0.1 1 applic topical TID 11/07/22 11/07/22 %-emollient [id number].[email or web address] topical cream Allergies Allergy/AdvReac Type Severity Reaction Status Date / Time atorvastatin Allergy Intermediate Other Verified 12/01/22 10:52 Review of Systems Review of Systems: Gen.: Denies fevers or chills Eyes: Denies eye pain or visual change ENT: Denies congestion Respiratory: Denies shortness of breath or cough CV: Denies chest pain or palpitations reports syncope GI: Denies abdominal pain nausea, emesis or diarrhea Musculoskeletal: Denies back pain or muscle pain Neuro: Denies numbness, tingling, weakness or focal weakness Skin: Denies rash Except as documented, all other systems reviewed and negative [facility] Past Medical History Medical History Chronic anticoagulation Deep venous thrombosis (04/2022) Hyperlipidemia Hypertension Hypothyroidism Transient ischemic attack Surgical History Surgical History (Updated 11/07/22 @ 22:17 by Yovana Dominguez PA-C) History of bilateral knee replacement History of cataract extraction Family History Family History Other Unknown family medical history Social History Social History Social History: Surrogate medical decision maker: Kailey Schuler, spouse. Code status: Full code. Smoking status: Former smoker Tobacco type: pipe Alcohol intake: former Substance use: never Lack of Transportation: YES Lack of Food: Never True Current Housing: I Have Housing Concerned About Future Housing: No Difficulty Paying Gas/Electric Bills: No Difficulty Paying for Meds: No Currently Unemployed: No Education: Trade/Vocational Certificate Difficulty w/ Childcare or Family Care: No Additional living arrangements comments: Lives with spouse in [place]. Occupation/Education: retired Spiritual care concerns: No Agree to blood products: Yes Exam Narrative: APPEARANCE: No acute distress, nontoxic, resting in bed HEENT: Normocephalic, atraumatic, OMM, TMs clear bilaterally EYES: PERRL, EOMI NECK: Supple, nontender, full range of motion without pain, no meningismus RESPIRATORY: No respiratory distress, clear to auscultation bilaterally with no rhonchi wheezing or rales CARDIOVASCULAR: RRR s murmur ABDOMINAL: Soft, nontender, nondistended MUSCULOSKELETAL: Moves all extremities. No clubbing, cyanosis or edema. NEURO: A and O ?3, following commands, speech normal, cranial nerves II through XII grossly intact,muscle strength 5 out of 5 bilateral upper and lower extremities SKIN:: Warm,
[2022-12-01 13:55] LABS: Add Urine Microscopic? YES
[2022-12-01 15:06] LABS: Troponin I < 0.012 ng/mL (0.000-0.034)
--- NOTE | 2022-12-01 16:17 | PM.IMHP ---
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 The patient stated that he felt lightheaded and that he slid out of the chair onto the ground her a bystander. The patient stated that his blood pressure was low. The patient was assisted to the sitting back up. EMS arrived at the scene. The patient denies any shortness of breath or chest pain. The patient denies any nausea vomiting or diaphoresis. The patient had a syncopal episode back in October as well. He had an echo performed on 11/09/2022 that was read as grade 1 diastolic noncompliance. The patient also had his carotid artery ultrasound that was read as the following1. 50-69% stenosis in the right internal carotid artery by sonographic criteria. 2. Less than 50% stenosis in the left internal carotid artery by sonographic criteria. The patient is currently on Eliquis for history of DVT and is taking Lipitor. He also has a history of TIA. According to the the patient had been confused after the syncopal episode and had some slurred speech. The patient has no focal weakness. Head CT today was read as stable moderate nonspecific cerebral white matter disease, which likely represents chronic small vessel ischemic disease. Cervical spine CT was read as no fracture severe cervical spondylosis. Chest x-ray was read as no acute cardiopulmonary disease. His platelets are down to 143. His blood sugar was 116. Troponin nonreactive x2. The patient was given IV fluids in the emergency room. Neurology has been consulted. The patient is being admitted to observation status on the date of service of 12/01/2022. Review of Systems Review of Systems: All systems reviewed & are unremarkable except as noted in HPI and below Constitutional: Constitutional: Reports as per HPI and Reports no additional constitutional complaints Eyes: Eyes: Reports as per HPI and Reports no additional eye complaints ENT: Reports system reviewed and no additional complaints, except as documented and Reports Normal hearing present Cardiovascular: Cardiovascular: Reports no additional cardiovascular complaints Respiratory: Respiratory: Reports no additional respiratory complaints and Reports no additional respiratory complaints Gastrointestinal: Gastrointestinal: Reports as per HPI and Reports no additional gastrointestinal complaints Musculoskeletal: Musculoskeletal: Reports no additional musculoskeletal complaints Integumentary/Breasts: Skin/Breast: Reports system reviewed and no additional complaints, except as docu and Reports as per HPI Neurologic: Reports system reviewed and no additional complaints, except as documented, Reports as per HPI and Reports Normal hearing present Psychiatric: Psychiatric: Reports no additional psychiatric complaints and Reports as per HPI Endocrine: Endocrine: Reports no additional endocrine complaints Hematologic/Lymphatic: Hematologic/Lymphatic: Reports no additional hematologic/lymphatic complaints Allergic/Immunologic: Allergic/Immunologic: Reports no additional allergic/immunologic complaints [facility] Past Medical History Medical History Chronic anticoagulation Deep venous thrombosis (04/2022) Hyperlipidemia Hypertension Hypothyroidism Transient ischemic attack Surgical History Surgical History History of bilateral knee replacement History of cataract extraction Family History Family History (Updated 12/01/22 @ 18:50 by Sylvia Zayas NP) Father Heart disease Mother Leukemia Sibling Cerebrovascular accident Social History Social History (Updated 12/01/22 @ 18:51 by Sylvia Zayas NP) Social History: He has 1 1 biological child and 1 step child. He
--- NOTE | 2022-12-01 17:35 | ADMGEN ---
This patient, Emigdio Schuler, was admitted to Medical Room 258-01. Patient/family oriented to hospital policies and general routines including ID bracelet, bed and alarms, visiting hours, pain management, procedures, bathroom and other care routines, personal items, smoking policy, room service/diet, and visiting hours. Information on how to activate the Rapid Response Team has been discussed. Patient/Family are encouraged to report perceived risks to care and to ask questions if they do not understand what they are told or what they should do.
[2022-12-01 21:54] LABS: Troponin I < 0.012 ng/mL (0.000-0.034)
[2022-12-01] MEDS: ATORVASTATIN 20 MG TABLET PO (22:50)
[2022-12-01] MEDS: APIXABAN 5 MG TABLET PO (22:50)
[2022-12-02] VITALS (16 sets, daily range): BP systolic 123–155; BP diastolic 53–69; PULSE 63–74; RESP 17–18; TEMP 36.4–36.9; O2SAT 92–98
--- NOTE | 2022-12-02 | ECHO_ITS ---
Patient Info Name: Emigdio Schuler Age: 82 years : 1940 Gender: Male Ht: 71 in Wt: 195 lbs BSA: 2.12 m2 HR: 65 bpm BP: 142 / 60 mmHg Technical Quality: Good Exam Date: 12/02/2022 4:25 PM Exam Location: [facility] Exam Room: [facility] Patient Status: Outpatient Admit Date: 12/01/2022 Staff Ordering Physician: Lester Rios Leave Specialist: Dasha Smart RDCS Attending Provider: Shna Francisco MD Referring Physician: Gabriel GREENBERG; Exam Type: CA echo limited w bubble study Study Info Indications - stroke like symptoms Limited two-dimensional transthoracic echocardiogram is performed with agitated saline. Contrast/Agitated Saline Contrast/Ag. Saline: Agitated Saline Amount: 20.00 ml Administered By: Elsie Hart RDCS Existing IV Access: Yes IV Access Condition: patent with no signs of infiltration Summary 1. Intact interatrial septum visualized by agitated saline imaging. Negative bubble study. Atrial Septum Intact interatrial septum visualized by agitated saline imaging. Negative bubble study. Report Signatures
[2022-12-02] MEDS: LEVOTHYROXINE SODIUM 50 MCG TABLET PO (05:30)
[2022-12-02 05:35] LABS: Basophils Percent Auto 0.5 % (0.2-1.2); Eosinophils Absolute Auto 0.1 K/mm3 (0-0.3); Eosinophils Percent Auto 1.3 % (0-4.4); Hematocrit 38.7 % (42.0-52.0); Hemoglobin 13.1 g/dL (14.0-18.0); Immature Granulocyte Absolute 0.02 K/mm3 (0.00-0.031); Immature Granulocyte Percent A 0.3 % (0-0.5); Lymphocytes Absolute Auto 2.12 K/mm3 (0.9-3.2); Lymphocytes Percent Auto 33.3 % (18.3-44.2); Mean Corpuscular HGB Conc 33.9 g/dl (32-36); Mean Corpuscular Volume 94.4 fl (80-100); Mean Platelet Volume 10.8 fl (7.4-10.4); Monocytes Absolute Auto 0.9 K/mm3 (0.1-0.6); Monocytes Percent Auto 13.5 % (2.6-8.5); Neutrophils Absolute Auto 3.3 K/mm3 (1.3-6.7); Neutrophils Percent Auto 51.1 % (45.5-73.1); Platelet Count Result 126 k/mm3 (150-375); Red Cell Distribution Width 14.4 % (11.5-14.5); White Blood Count 6.4 K/mm3 (4.5-10.0)
[2022-12-02 05:42] LABS: Lactic Acid Reflex 2.1 mmol/L (0.7-2.0)
[2022-12-02 05:54] LABS: Alanine Aminotransferase 49 U/L (6-50); Albumin Level 3.6 g/dL (3.5-5.1); Alkaline Phosphatase 47 U/L (38-126); Anion Gap 6 mmol/L (8-16); Aspartate Amino Transferase 56 U/L (17-59); Bilirubin,Total 0.7 mg/dL (0.2-1.3); Blood Urea Nitrogen 20 mg/dL (9-20); Calcium 8.5 mg/dL (8.4-10.2); Carbon Dioxide 29 mmol/L (22-30); Chloride 102 mmol/L (98-107); Estimated CRCL calculation 65 ml/min; Estimated Glomerular Filt Rate > 60; Glucose 102 mg/dL (65-110); Magnesium 1.4 mg/dL (1.6-2.3); Sodium 137 mmol/L (137-145)
[2022-12-02] MEDS: APIXABAN 5 MG TABLET PO ×2 (08:10→17:09)
[2022-12-02] MEDS: hydroCHLOROthiazide 25 MG TABLET PO (08:10)
[2022-12-02] MEDS: TRIAMCINOLONE ACET 0.1% CREAM 80 GM TUBE 1 APPLIC TOPICAL (08:11)
[2022-12-02 08:28] LABS: Reflex Lactic Acid Yes or No Add Lactic
[2022-12-02 08:53] LABS: Cholesterol 155 mg/dL (0-200); HDL Direct 21 mg/dL; Triglycerides 394 mg/dL (<150)
[2022-12-02 09:02] LABS: Lactic Acid 1.7 mmol/L (0.7-2.0)
[2022-12-02 09:04] LABS: LDL Cholesterol Direct 50 mg/dL
[2022-12-02] MEDS: lisinopriL 20 MG TABLET PO (09:04)
--- NOTE | 2022-12-02 09:26 | WPDNEURCNPN ---
Assessment and Plan Assessment and plan (1) Loss of consciousness: Code(s): R40.20 - Unspecified coma Status: Acute (2) Syncope: Code(s): R55 - Syncope and collapse Status: Acute (3) Hypertension: Code(s): I10 - Essential (primary) hypertension Status: Acute (4) Hyperlipidemia: Code(s): E78.5 - Hyperlipidemia, unspecified Status: Acute (5) Hypothyroidism: Code(s): E03.9 - Hypothyroidism, unspecified Status: Acute Plan Emigdio Schuler is a 82 year old male with a history of DVT on chronic anticoagulation, hypertension, hyperlipidemia, hypothyroidism presenting due to an episode of loss of consciousness. Concern for syncopal episode. Etiology could be orthostatic intolerance, carotid disease, and/or cardiogenic etiology. - MRI brain and CTA brain/carotid pending - Echocardiogram has been ordered - Please check orthostatics Consult date: 12/02/22 Reason for consult: Syncope vs seizure HPI: Emigdio Schuler is a 82 year old male with a history of DVT on chronic anticoagulation, hypertension, hyperlipidemia, hypothyroidism presenting due to an episode of loss of consciousness. 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 He felt lightheaded initially and then slid out of the chair onto the ground. Patient reported that his blood pressure was low at the time when evaluated by EMS. Patient was taken to [place] ED, where still appeared somewhat confused and had garbled speech. Eventually he did return to baseline mental status. He had a CT head in the ED which was unrevealing. EKG showed 1st degree AV block with sinus bradycardia. Labs were unrevealing and infectious work-up was negative. Patient had a syncopal episode several weeks ago, for which he was admitted. At that time he had carotid Doppler studies which showed 50-69% stenosis in the R ICA and <50% stenosis of the left ICA. Review of Systems Constitutional: Constitutional: Reports no additional constitutional complaints Eyes: Eyes: Reports no additional eye complaints ENT: Reports system reviewed and no additional complaints, except as documented Cardiovascular: Cardiovascular: Reports no additional cardiovascular complaints Respiratory: Respiratory: Reports no additional respiratory complaints Gastrointestinal: Gastrointestinal: Reports no additional gastrointestinal complaints Genitourinary: Genitourinary: Reports no additional male genitourinary complaints Musculoskeletal: Musculoskeletal: Reports no additional musculoskeletal complaints Integumentary/Breasts: Skin/Breast: Reports system reviewed and no additional complaints, except as docu Neurologic: Reports as per HPI Psychiatric: Psychiatric: Reports no additional psychiatric complaints PENDING SALE TO [facility] Past Medical History Medical History Chronic anticoagulation Deep venous thrombosis (04/2022) Hyperlipidemia Hypertension Hypothyroidism Transient ischemic attack Surgical History Surgical History History of bilateral knee replacement History of cataract extraction Family History Family History Father Heart disease Mother Leukemia Sibling Cerebrovascular accident Social History Social History Social History: He has 1 1 biological child and 1 step child. 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 Surrogate medical decision maker: Kailey Schuler, spouse. Code status: Full code. Smoking status: Former smoker Tobacco type: pipe Alcohol intake: never Substance use: never Lack of Transportation: No Lack of Food: Never True Current Housing: I Do Not Have Housing Concerned About Future Housing: No Difficulty Paying Gas/Electric Bills: No Difficulty Paying for Meds: No Currently
[2022-12-02] MEDS: MAGNESIUM SULF 4 GM/WATER100ML 4 GM/100 ML BAG IVPB (09:46)
--- NOTE | 2022-12-02 10:30 | P.PNIM_ITS ---
Progress Note: A&P Assessment and Plan (1) Syncope: Code(s): R55 - Syncope and collapse Status: Acute Assessment and Plan: * Presented with syncope, however, reported slurred speech, confusion, lightheadedness * Head CT showed stable moderate nonspecific cerebral white matter disease, chronic small vessel disease * CTA Stable moderate nonspecific cerebral white matter disease, which likely represents chronic small vessel ischemic disease. 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 Patent stents in the cervical carotid arteries. 32% stenosis of the right internal carotid artery distal to the stent relative to normal distal artery lumen diameter. * MRI ordered * Carotid doppler showed 50-69% stenosis in the right internal carotid artery, less than 50% stenosis in the left internal carotid artery * Echo with bubble, for EF and assessment of PFO ordered * Continue Eliquis * Lipid panel shows cholesterol 155, LDL 50, HDL 21, triglycerides 394 * Continue atorvastatin * Neurology consulted (2) Chronic anticoagulation: Code(s): Z79.01 - longterm (current) use of anticoagulants Status: Acute Assessment and Plan: * DVT in the past * Continue Eliquis at this time * Bleeding precaution education (3) Hypothyroidism: Code(s): E03.9 - Hypothyroidism, unspecified Status: Acute Assessment and Plan: * Continue with levothyroxine * thyroid level 1.710 * Sable and chronic at this time (4) Hyperlipidemia: Code(s): E78.5 - Hyperlipidemia, unspecified Status: Acute Assessment and Plan: * Continue with atorvastatin * Increase as indicated (5) Hypertension: Code(s): I10 - Essential (primary) hypertension Status: Acute Assessment and Plan: * BP 142/60 * Continue with lisinopril and hydrochlorothiazide * orthostatic blood pressures every shift * Adjust medications as indicated * Trend BP Time Spent With Patient Time: 52 minutes, 25 minutes devoted to patient and family for plan of care, testing, results reviewed. Time with patient: Greater than 35 minutes Subjective Date/time seen: 12/02/22 1030 Interval history: 12/02/12 1030 patient's were both present in the room. Patient stated that he does have a little bit of lightheadedness and dizziness especially when he stands up very quickly. According to him and his he has had a few syncopal episodes within to 3 weeks. His stated that the last few syncopal episodes the patient has not been getting up and rebounding as fast as this time in the last time the patient was very confused unable to get his thoughts or words out and was slurred speech. She stated that this is kind of however presented as a TIA he had bet 10 years ago. He also stated that he has tingling in the back of his head neck area. He stated that he thought this was a pinched nerve or a muscle issue or he slept from however it does come and go but never completely resolves. He denies any current chest pain, shortness a breath, nausea, vomiting, diarrhea, constipation, weakness or fatigue. 12/01/22? 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 The patient stated that he felt lightheaded and that he slid out of the chair onto the
--- NOTE | 2022-12-02 10:30 | PM.IMPN ---
Progress Note: A&P Assessment and Plan (1) Syncope: Code(s): R55 - Syncope and collapse Status: Acute Assessment and Plan: Presented with syncope, however, reported slurred speech, confusion, lightheadedness Head CT showed stable moderate nonspecific cerebral white matter disease, chronic small vessel disease CTA Stable moderate nonspecific cerebral white matter disease, which likely represents chronic small vessel ischemic disease. 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 Patent stents in the cervical carotid arteries. 32% stenosis of the right internal carotid artery distal to the stent relative to normal distal artery lumen diameter. 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 Status: Acute Assessment and Plan: DVT in the past Continue Eliquis at this time Bleeding precaution education (3) Hypothyroidism: Code(s): E03.9 - Hypothyroidism, unspecified Status: Acute Assessment and Plan: Continue with levothyroxine thyroid level 1.710 Sable and chronic at this time (4) Hyperlipidemia: Code(s): E78.5 - Hyperlipidemia, unspecified Status: Acute Assessment and Plan: Continue with atorvastatin Increase as indicated (5) Hypertension: Code(s): I10 - Essential (primary) hypertension Status: Acute Assessment and Plan: BP 142/60 Continue with lisinopril and hydrochlorothiazide orthostatic blood pressures every shift Adjust medications as indicated Trend BP Time Spent With Patient Time: 52 minutes, 25 minutes devoted to patient and family for plan of care, testing, results reviewed. Time with patient: Greater than 35 minutes Subjective Date/time seen: 12/02/22 1030 Interval history: 12/02/12 1030 patient's were both present in the room. Patient stated that he does have a little bit of lightheadedness and dizziness especially when he stands up very quickly. According to him and his he has had a few syncopal episodes within to 3 weeks. His stated that the last few syncopal episodes the patient has not been getting up and rebounding as fast as this time in the last time the patient was very confused unable to get his thoughts or words out and was slurred speech. She stated that this is kind of however presented as a TIA he had bet 10 years ago. He also stated that he has tingling in the back of his head neck area. He stated that he thought this was a pinched nerve or a muscle issue or he slept from however it does come and go but never completely resolves. He denies any current chest pain, shortness a breath, nausea, vomiting, diarrhea, constipation, weakness or fatigue. 12/01/22? 16:17 This is an 82-year-old male patient who was working on some [employer] train station at the [facility] when he sustained a syncopal episode.? 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 The patient stated that his blood pressure was low.? The patient was assisted to the sitting back up.? EMS arrived at the scene.? The patient denies any shortness of breath or chest pain.? The patient denies any nausea vomiting or diaphoresis.? The patient had a syncopal episode back in October as well.? He had an echo performed on 11/09/2022 that was read as grade 1 diastolic noncompliance.? The patient also had his carotid artery ultrasound that was read as the following1. 50-69% stenosis in the right
[2022-12-02] MEDS: ATORVASTATIN 20 MG TABLET PO (20:39)
[2022-12-03] VITALS (9 sets, daily range): BP systolic 102–135; BP diastolic 49–60; PULSE 59–75; RESP 17–18; TEMP 36.5; O2SAT 92–98
[2022-12-03] MEDS: LEVOTHYROXINE SODIUM 50 MCG TABLET PO (06:42)
[2022-12-03 06:44] LABS: Basophils Percent Auto 0.6 % (0.2-1.2); Eosinophils Absolute Auto 0.2 K/mm3 (0-0.3); Eosinophils Percent Auto 3.9 % (0-4.4); Hematocrit 40.1 % (42.0-52.0); Hemoglobin 13.3 g/dL (14.0-18.0); Immature Granulocyte Absolute 0.01 K/mm3 (0.00-0.031); Immature Granulocyte Percent A 0.2 % (0-0.5); Immature Platelet Fraction Pct 5.5 % (0.9-11.2); Lymphocytes Absolute Auto 1.55 K/mm3 (0.9-3.2); Lymphocytes Percent Auto 30.5 % (18.3-44.2); Mean Corpuscular HGB Conc 33.2 g/dl (32-36); Mean Corpuscular Hemoglobin 31.7 pg (26-34); Mean Corpuscular Volume 95.5 fl (80-100); Mean Platelet Volume 10.7 fl (7.4-10.4); Monocytes Absolute Auto 0.9 K/mm3 (0.1-0.6); Monocytes Percent Auto 17.7 % (2.6-8.5); Neutrophils Absolute Auto 2.4 K/mm3 (1.3-6.7); Neutrophils Percent Auto 47.1 % (45.5-73.1); Platelet Count Result 124 k/mm3 (150-375); Red Cell Distribution Width 14.4 % (11.5-14.5); White Blood Count 5.1 K/mm3 (4.5-10.0)
[2022-12-03 06:59] LABS: Alanine Aminotransferase 48 U/L (6-50); Albumin Level 3.7 g/dL (3.5-5.1); Alkaline Phosphatase 47 U/L (38-126); Anion Gap 3 mmol/L (8-16); Aspartate Amino Transferase 53 U/L (17-59); Bilirubin,Total 0.8 mg/dL (0.2-1.3); Blood Urea Nitrogen 20 mg/dL (9-20); Calcium 8.6 mg/dL (8.4-10.2); Carbon Dioxide 34 mmol/L (22-30); Chloride 100 mmol/L (98-107); Estimated CRCL calculation 65 ml/min; Estimated Glomerular Filt Rate > 60; Glucose 105 mg/dL (65-110); Magnesium 1.7 mg/dL (1.6-2.3); Potassium 3.8 mmol/L (3.4-5.0); Sodium 137 mmol/L (137-145)
[2022-12-03] MEDS: hydroCHLOROthiazide 25 MG TABLET PO (08:11)
[2022-12-03] MEDS: APIXABAN 5 MG TABLET PO (08:11)
[2022-12-03] MEDS: ASPIRIN 81 MG CHEWABLE TABLET PO (08:11)
[2022-12-03] MEDS: lisinopriL 20 MG TABLET PO (08:11)
[2022-12-03] MEDS: TRIAMCINOLONE ACET 0.1% CREAM 80 GM TUBE 1 APPLIC TOPICAL (08:12)
--- NOTE | 2022-12-03 08:39 | P.PNIM_ITS ---
Progress Note: A&P Assessment and Plan (1) Stroke: Code(s): I63.9 - Cerebral infarction, unspecified Status: Acute Assessment and Plan: * Presented with syncope, however, reported slurred speech, confusion, ligh theadedness * Head CT showed stable moderate nonspecific cerebral white matter disease, chronic small vessel disease * CTA Stable moderate nonspecific cerebral white matter disease, which likely represents chronic small vessel ischemic disease. 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 Patent stents in the cervical carotid arteries. 32% stenosis of the right internal carotid artery distal to the stent relative to normal distal artery lumen diameter. * MRI showed acute infarct in the josee on the left, and chronic small vessel disease * Carotid doppler showed 50-69% stenosis in the right internal carotid artery, less than 50% stenosis in the left internal carotid artery * Echo with bubble, for EF and assessment of PFO, intact septum, EF of 73% * Continue Eliquis, add aspirin * Lipid panel shows cholesterol 155, LDL 50, HDL 21, triglycerides 394 * increase atorvastatin * Neurology consulted * Orthostatic BP laying 127/69, sitting 130/60, standing 123/93, stable no indication of hypotension (2) Syncope: Code(s): R55 - Syncope and collapse Status: Acute Assessment and Plan: * Presented with syncope, however, reported slurred speech, confusion, lightheadedness * Head CT showed stable moderate nonspecific cerebral white matter disease, chronic small vessel disease * CTA Stable moderate nonspecific cerebral white matter disease, which likely represents chronic small vessel ischemic disease. 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 Patent stents in the cervical carotid arteries. 32% stenosis of the right internal carotid artery distal to the stent relative to normal distal artery lumen diameter. 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 Status: Acute Assessment and Plan: * DVT in the past * Continue Eliquis at this time * Bleeding precaution education (4) Hypothyroidism: Code(s): E03.9 - Hypothyroidism, unspecified Status: Acute Assessment and Plan: * Continue with levothyroxine * thyroid level 1.710 * Sable and chronic at this time (5) Hyperlipidemia: Code(s): E78.5 - Hyperlipidemia, unspecified Status: Acute Assessment and Plan: * Continue with atorvastatin * Increase as indicated (6) Hypertension: Code(s): I10 - Essential (primary) hypertension Status: Acute Assessment and Plan: * BP 131/60 * Continue with lisinopril and hydrochlorothiazide * orthostatic blood pressures every shift * Adjust medications as indicated * Trend BP
--- NOTE | 2022-12-03 08:39 | PM.IMPN ---
Progress Note: A&P Assessment and Plan (1) Stroke: Code(s): I63.9 - Cerebral infarction, unspecified Status: Acute Assessment and Plan: Presented with syncope, however, reported slurred speech, confusion, lightheadedness Head CT showed stable moderate nonspecific cerebral white matter disease, chronic small vessel disease CTA Stable moderate nonspecific cerebral white matter disease, which likely represents chronic small vessel ischemic disease. 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 Patent stents in the cervical carotid arteries. 32% stenosis of the right internal carotid artery distal to the stent relative to normal distal artery lumen diameter. MRI showed acute infarct in the josee on the left, and chronic small vessel disease Carotid doppler showed 50-69% stenosis in the right internal carotid artery, less than 50% stenosis in the left internal carotid artery Echo with bubble, for EF and assessment of PFO, intact septum, EF of 73% Continue Eliquis, add aspirin Lipid panel shows cholesterol 155, LDL 50, HDL 21, triglycerides 394 increase atorvastatin Neurology consulted Orthostatic BP laying 127/69, sitting 130/60, standing 123/93, stable no indication of hypotension (2) Syncope: Code(s): R55 - Syncope and collapse Status: Acute Assessment and Plan: Presented with syncope, however, reported slurred speech, confusion, lightheadedness Head CT showed stable moderate nonspecific cerebral white matter disease, chronic small vessel disease CTA Stable moderate nonspecific cerebral white matter disease, which likely represents chronic small vessel ischemic disease. 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 Patent stents in the cervical carotid arteries. 32% stenosis of the right internal carotid artery distal to the stent relative to normal distal artery lumen diameter. 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 Status: Acute Assessment and Plan: DVT in the past Continue Eliquis at this time Bleeding precaution education (4) Hypothyroidism: Code(s): E03.9 - Hypothyroidism, unspecified Status: Acute Assessment and Plan: Continue with levothyroxine thyroid level 1.710 Sable and chronic at this time (5) Hyperlipidemia: Code(s): E78.5 - Hyperlipidemia, unspecified Status: Acute Assessment and Plan: Continue with atorvastatin Increase as indicated (6) Hypertension: Code(s): I10 - Essential (primary) hypertension Status: Acute Assessment and Plan: BP 131/60 Continue with lisinopril and hydrochlorothiazide orthostatic blood pressures every shift Adjust medications as indicated Trend BP Time Spent With Patient Time: 48 minutes Time with patient: Greater than 35 minutes Subjective Date/time seen: 12/03/22 08:39 Interval history: 12/02/12 1030 patient's were both present in the room. Patient stated that he does have a little bit of lightheadedness and dizziness especially when he stands up very quickly. According to him and his he has had a few syncopal episodes within to 3 weeks. His stated that the last few syncopal episodes the patient has not been getting up and r
--- NOTE | 2022-12-03 09:21 | WPDNEUROPN ---
Progress Note: A&P Assessment and Plan (1) Stroke: Code(s): I63.9 - Cerebral infarction, unspecified Status: Acute (2) Syncope: Code(s): R55 - Syncope and collapse Status: Acute (3) Loss of consciousness: Code(s): R40.20 - Unspecified coma Status: Acute (4) Hyperlipidemia: Code(s): E78.5 - Hyperlipidemia, unspecified Status: Acute (5) Hypertension: Code(s): I10 - Essential (primary) hypertension Status: Acute Plan Emigdio Schuler is a 82 year old male with a history of DVT on chronic anticoagulation, hypertension, hyperlipidemia, hypothyroidism presenting due to an episode of loss of consciousness. Found to have acute stroke on MRI brain in the left josee. Etiology is unclear -- he did have stenosis of anterior circulation, but none noted in posterior circulation that would explain pontine stroke. LDL and blood pressure also appropriate. Limited echo was negative for PFO. - Start aspirin 81mg daily - Continue Eliquis as part of DVT management - Continue Atorvastatin 20mg daily - Discussed importance of outpatient Cardiology evaluation -- given cryptogenic etiology of stroke, may need DANIEL +/- Loop recorder. Subjective Date/time seen: 12/03/22 09:21 Interval history: Emigdio Schuler is a 82 year old male with a history of DVT on chronic anticoagulation, hypertension, hyperlipidemia, hypothyroidism presenting due to an episode of loss of consciousness. 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 He felt lightheaded initially and then slid out of the chair onto the ground. Patient reported that his blood pressure was low at the time when evaluated by EMS. Patient was taken to [place] ED, where still appeared somewhat confused and had garbled speech. Eventually he did return to baseline mental status. He had a CT head in the ED which was unrevealing. EKG showed 1st degree AV block with sinus bradycardia. Labs were unrevealing and infectious work-up was negative. Patient had a syncopal episode several weeks ago, for which he was admitted. At that time he had carotid Doppler studies which showed 50-69% stenosis in the R ICA and <50% stenosis of the left ICA. MRI brain showed acute infarct in left josee. CTA showed moderate stenosis of intracranial carotid arteries and 32% stenosis of proximal R ICA. Also showed intact carotid stents. LDL was 50. Blood pressure has been in the 120-130s systolic. Echocardiogram did not show any evidence of PFO. Patient has an appointment scheduled with [facility], Dr. Márquez in December 2022. Review of Systems Constitutional: Constitutional: Reports no additional constitutional complaints Eyes: Eyes: Reports no additional eye complaints ENT: Reports system reviewed and no additional complaints, except as documented Cardiovascular: Cardiovascular: Reports no additional cardiovascular complaints Respiratory: Respiratory: Reports no additional respiratory complaints Gastrointestinal: Gastrointestinal: Reports no additional gastrointestinal complaints Genitourinary: Genitourinary: Reports no additional male genitourinary complaints Musculoskeletal: Musculoskeletal: Reports no additional musculoskeletal complaints Integumentary/Breasts: Skin/Breast: Reports system reviewed and no additional complaints, except as docu Neurologic: Reports as per HPI Psychiatric: Psychiatric: Reports no additional psychiatric complaints Exam Const: General: comfortable and no acute distress HENMT: Mouth: Yes moist mucous membranes Eyes: Pupils: Equal, round and reactive pupils present EOM: EOMs intact bilaterally Resp: Effort & Inspection: normal respiratory effort Skin: General skin exam: normal color Neuro: Other: Pupils equal and reactive bilaterally, EOMI, face symmetric, tongue protrudes midline, palate midline. Strength 5/5 throughout. Sensation intact throughout. FNF normal bilaterally. Language comprehension and fluenc
--- NOTE | 2022-12-03 10:00 | PM.DS ---
DS: Admitting Diagnosis Discharge Date 12/03/22 1000 Admitting Diagnosis acute stroke, syncope DS: Discharge Diagnosis Discharge Diagnosis (1) Syncope: Code(s): R55 - Syncope and collapse Status: Acute Assessment and Plan: Presented with syncope, however, reported slurred speech, confusion, lightheadedness Head CT showed stable moderate nonspecific cerebral white matter disease, chronic small vessel disease CTA Stable moderate nonspecific cerebral white matter disease, which likely represents chronic small vessel ischemic disease. 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 Patent stents in the cervical carotid arteries. 32% stenosis of the right internal carotid artery distal to the stent relative to normal distal artery lumen diameter. 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 Status: Acute Assessment and Plan: DVT in the past Continue Eliquis at this time Bleeding precaution education (3) Hypothyroidism: Code(s): E03.9 - Hypothyroidism, unspecified Status: Acute Assessment and Plan: Continue with levothyroxine thyroid level 1.710 Sable and chronic at this time (4) Hyperlipidemia: Code(s): E78.5 - Hyperlipidemia, unspecified Status: Acute Assessment and Plan: Continue with atorvastatin Increase as indicated (5) Hypertension: Code(s): I10 - Essential (primary) hypertension Status: Acute Assessment and Plan: BP 131/60 Continue with lisinopril and hydrochlorothiazide orthostatic blood pressures every shift Adjust medications as indicated Trend BP (6) Stroke: Code(s): I63.9 - Cerebral infarction, unspecified Status: Acute Assessment and Plan: Presented with syncope, however, reported slurred speech, confusion, lightheadedness Head CT showed stable moderate nonspecific cerebral white matter disease, chronic small vessel disease CTA Stable moderate nonspecific cerebral white matter disease, which likely represents chronic small vessel ischemic disease. 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 Patent stents in the cervical carotid arteries. 32% stenosis of the right internal carotid artery distal to the stent relative to normal distal artery lumen diameter. MRI showed acute infarct in the josee on the left, and chronic small vessel disease Carotid doppler showed 50-69% stenosis in the right internal carotid artery, less than 50% stenosis in the left internal carotid artery Echo with bubble, for EF and assessment of PFO, intact septum, EF of 73% Continue Eliquis, add aspirin Lipid panel shows cholesterol 155, LDL 50, HDL 21, triglycerides 394 increase atorvastatin Neurology consulted Orthostatic BP laying 127/69, sitting 130/60, standing 123/93, stable no indication of hypotension DS: Summary Hospital Course Hospital Course: patient is an 82-year-old male with a past medical history of hyperlipidemia, DVT, hypertension, TIA who presented to the ED with complaints of syncope with loss of consciousness. Patient was working on a train set and slid out of the chair and became unconscious when he woke he was very confused and was not able to have word-finding abilities. Patient was note
--- NOTE | 2022-12-03 10:00 | P.DS_ITS ---
DS: Admitting Diagnosis Discharge Date 12/03/22 1000 Admitting Diagnosis acute stroke, syncope DS: Discharge Diagnosis Discharge Diagnosis (1) Syncope: Code(s): R55 - Syncope and collapse Status: Acute Assessment and Plan: * Presented with syncope, however, reported slurred speech, confusion, lightheadedness * Head CT showed stable moderate nonspecific cerebral white matter disease, chronic small vessel disease * CTA Stable moderate nonspecific cerebral white matter disease, which likely represents chronic small vessel ischemic disease. 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 Patent stents in the cervical carotid arteries. 32% stenosis of the right internal carotid artery distal to the stent relative to normal distal artery lumen diameter. * MRI showed acute infarct in the josee on the left, and chronic small vessel disease * Carotid doppler showed 50-69% stenosis in the right internal carotid artery, less than 50% stenosis in the left internal carotid artery * Echo with bubble, for EF and assessment of PFO, intact septum, EF of 73% * Continue Eliquis, add aspirin * Lipid panel shows cholesterol 155, LDL 50, HDL 21, triglycerides 394 * increase atorvastatin * Neurology consulted * Orthostatic BP laying 127/69, sitting 130/60, standing 123/93, stable no indication of hypotension (2) Chronic anticoagulation: Code(s): Z79.01 - longterm (current) use of anticoagulants Status: Acute Assessment and Plan: * DVT in the past * Continue Eliquis at this time * Bleeding precaution education (3) Hypothyroidism: Code(s): E03.9 - Hypothyroidism, unspecified Status: Acute Assessment and Plan: * Continue with levothyroxine * thyroid level 1.710 * Sable and chronic at this time (4) Hyperlipidemia: Code(s): E78.5 - Hyperlipidemia, unspecified Status: Acute Assessment and Plan: * Continue with atorvastatin * Increase as indicated (5) Hypertension: Code(s): I10 - Essential (primary) hypertension Status: Acute Assessment and Plan: * BP 131/60 * Continue with lisinopril and hydrochlorothiazide * orthostatic blood pressures every shift * Adjust medications as indicated * Trend BP (6) Stroke: Code(s): I63.9 - Cerebral infarction, unspecified Status: Acute Assessment and Plan: * Presented with syncope, however, reported slurred speech, confusion, lightheadedness * Head CT showed stable moderate nonspecific cerebral white matter disease, chronic small vessel disease * CTA Stable moderate nonspecific cerebral white matter disease, which likely represents chronic small vessel ischemic disease. 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 Patent stents in the cervical carotid arteries. 32% stenosis of the right internal carotid artery distal to the stent relative to normal distal artery lumen diameter. * MRI showed acute infarct in the josee on the left, and chronic small vessel disease * Carotid doppler showed 50-69% stenosis in the right internal carotid artery, less than 50% stenosis in the left internal carotid artery * Echo with bubble, for EF and assessment of PFO, intact septum, EF of 73% * Continue Eliquis, add aspirin * Lipid panel shows cholesterol 155, LDL 50, HDL 21, triglycerides 394
[2022-12-03] MEDS: MAGNESIUM SULF 2 GM/WATER 50ML 2 GM/50 ML BAG IVPB (10:24)
--- NOTE | 2022-12-03 13:01 | PC.NURSE ---
On 12/03/22, the student, [Esteban Davis], provided care and completed [facility] documentation on this patient. I have reviewed the student's documentation and agree with the findings.
== END 2022-12-03 14:05 | disposition home or self-care (01) ==
LOC: ANHED 15:30 → ANH2MED 18:12
PROVIDERS: Nurse Practitioner; Admitting Provider Chiropractor; Emergency Provider Emergency Medicine; PCP Family Medicine; Visit Provider Nurse Practitioner
DX: I63.9 Cerebral infarction, unspecified (principal); R40.20 Unspecified coma; I95.9 Hypotension, unspecified; R07.9 Chest pain, unspecified; E78.5 Hyperlipidemia, unspecified; I65.29 Occlusion and stenosis of unspecified carotid artery; Z95.828 Presence of other vascular implants and grafts; I10 Essential (primary) hypertension; E03.9 Hypothyroidism, unspecified; M47.812 Spondylosis without myelopathy or radiculopathy, cervical region; R90.82 White matter disease, unspecified; I44.0 Atrioventricular block, first degree; R00.1 Bradycardia, unspecified; R94.31 Abnormal electrocardiogram [ECG] [EKG]; Z87.891 Personal history of nicotine dependence; Z86.73 Personal history of transient ischemic attack (TIA), and cerebral infarction without residual deficits; Z86.718 Personal history of other venous thrombosis and embolism; Z79.01 Long term (current) use of anticoagulants; Z79.52 Long term (current) use of systemic steroids; Z79.899 Other long term (current) drug therapy; Z82.49 Family history of ischemic heart disease and other diseases of the circulatory system
CPT/HCPCS: 36415; 70450; 70496; 70498; 70551; 71045; 72125; 80053; 80061; 81001; 83605; 83735; 84443; 84484; 85025; 85055; 85610; 85730; 93005; 93308; 96360; 96361; 96365; 96375; 96376; 99285; A9270; G0378; J3475; J7030; Q9967

== ENCOUNTER 2023-01-25 01:42 | Day surgery (SDC) | payer MEDICARE, SELFPAY ==
[2023-01-22 15:57] VITALS: BMI 27.6
[2023-01-25] VITALS (11 sets, daily range): BP systolic 175–211; BP diastolic 69–88; PULSE 65–69; RESP 12–15; TEMP 36.6; O2SAT 95–99; BMI 27.3
--- NOTE | 2023-01-25 12:02 | P.PCNCC_ITS ---
Cardiac Cath Procedure Note Date of procedure:: 01/25/23 Performing physician:: Shan Butler MD Indication:: Recurrent syncope Brief clinical history:: this is an 82-year-old man who has been having recurrent syncopal episodes for a number of years. Etiology of this has not been established and for further evaluation loop recorder implant has been recommended. Procedure Procedure performed:: Implantation of Biotronik Biomonitor 3 loop recorder Sedation/Medication given:: no sedation Access site:: left anterior chest Estimated blood loss:: minimal Procedure note:: patient was brought to the cardiac foundry laborer coreroom preop holding area where the left anterior chest wall was prepped and draped in the usual sterile fashion a tamie was made in the 4th intercostal space in the midclavicular line. Following for sterile prep this area was infiltrated with 20 cc of 1% lidocaine. Following this the bio monitor loop recorder kit was placed on the field. The insertion device was used to create the stab wound at this marked implant site. The insertion device was then advanced subcutaneously angle to the left lower quadrant and advanced completely subcutaneously. The device was unlocked and the insertion tool was withdrawn leaving the loop recorder in place in position. Light manual pressure was held at the puncture wound for hemostasis following this the wound is dressed with a drop of bio glue and a bandage. Procedure was well tolerated and uncomplicated. Findings:: As above Conclusion:: uncomplicated unremarkable implantation of Biotronik bio monitor loop recorder for evaluation of recurrent syncope in this 82-year-old man Shan Butler MD [facility]
--- NOTE | 2023-01-25 13:37 | SUR.OPER ---
pt b/p running 180-190/70s. pt asymptomatic with hypertention. manual b/p taken noted to be 182/82. diane paredes research aide informed of htn. diane in to discuss recommendations with pt and . pt reported i am usually hypotensive i really don't feel comfortable being started on any new medications to get b/p down. I believe my b/p will go down after i relax and get home. diane informed pt has way of taking b/p at home and takes b/p normally everyday and is normally norm to low. diane v/u encouraged pt to take b/p and if continues to be high can discuss at wound check appointment on wednesdayfebruary 01. pt and v/u. pt d/c questions encouarged and answered.
== END 2023-01-25 13:30 | disposition home or self-care (01) ==
PROVIDERS: PCP Family Medicine; Visit Provider Specialist
PROC: (CPT 33285; principal; 2023-01-25 11:30)
DX: R55 Syncope and collapse (principal)
CPT/HCPCS: 33285; C1764

== ENCOUNTER 2025-02-24 13:15 | Emergency (ER) | payer MEDICARE, SELFPAY ==
[2025-02-24] VITALS (34 sets, daily range): BP systolic 109–178; BP diastolic 59–100; PULSE 66–76; RESP 10–26; TEMP 36.6–36.9; O2SAT 91–100
--- NOTE | ~2025-02-24 | CT_ITS ---
History: Generalized weakness and vertigo PROCEDURE: CT head without contrast. COMPARISON: 12/01/2022 TECHNIQUE: Axial imaging of the head performed from the skull base to the vertex without IV contrast. Sagittal a nd coronal reformations obtained. DLP: 681 mGy-cm FINDINGS: The ventricles are enlarged. The dilatation of the ventricles is proportional to the degree of sulcal prominence, not uncommon in the senescent brain. Decreased attenuation is identified within the periventricular white matter, likely secondary to micr ovascular ischemic disease, in a patient of this age. There is no mass, mass effect or midline shift. There is no abnormal extra-axial fluid collection or intracranial hemorrhage. Visualized paranasal sinuses are clear. The mastoid air cells are well aerated. No acute displaced fractures within the overlying cranium. Impression: No acute intracranial hemorrhage or suspicious mass effect. Reviewed, dictated and finalized at location A. Impression: No acute intracranial hemorrhage or suspicious mass effect.
--- NOTE | 2025-02-24 13:16 | ED_ITS ---
HPI - Weakness General Chief complaint: Weakness Stated complaint: near syncope Time Seen by Provider: 02/24/25 13:16 Source: patient Mode of arrival: ambulatory Limitations: no limitations History of Present Illness HPI Narrative: 84-year-old male ex-smoker a history of hypertension, dyslipidemia, hypothyroidism, CVA with TIA, carotid stenosis status post stents, DVT on Eliquis, status post knee surgery, back surgery presents to the ED with -- generalized weakness after returning from a . -- Patient was noted to be pale and was lightheaded. -- EMS noted his blood pressure to be 68 systolic. Subsequently was noted to have systolic blood pressure of 90. When he presented to the ED is noted to have a blood pressure of 108/51. He has a history of recurrent syncope and has had workup. No arrhythmias were noted. The patient had a normal ejection fraction with diastolic dysfunction. patient is alert and oriented. No focal deficit noted. Patient has a clear speech. MD Complaint: generalized weakness Onset (ago): hour(s) ( 1 hour) Duration: constant Location: generalized Migration: none Severity: moderate Relieving factors: none Exacerbating factors: none Associated symptoms: denies other symptoms Related Data Home Medications ?Medication ?Instructions ?Recorded ?Confirmed ?Last Taken ?Type levothyroxine 50 mcg tablet 50 mcg PO DAILY 11/07/22 01/22/23 11/07/22 History (Synthroid) 0800 lisinopril 20 1 tablet PO DAILY 11/07/22 01/22/23 11/07/22 08:00 History mg-hydrochlorothiazide 25 mg tablet 20-25 triamcinolone acetonide 0.1 1 applic topical TID 11/07/22 01/22/23 11/07/22 08:00 History %-emollient comb.no.45 topical 1 application cream ascorbic acid (vitamin C) 1,000 mg 1,000 mg PO DAILY 01/22/23 01/22/23 Unknown History tablet cholecalciferol (vitamin D3) 50 50 mcg PO DAILY 01/22/23 01/22/23 Unknown History mcg (2,000 unit) tablet cyanocobalamin (vitamin B-12) 1,000 mcg PO DAILY 01/22/23 01/22/23 Unknown History 1,000 mcg tablet docosahexaenoic acid (dha)-epa 1 cap PO DAILY 01/22/23 01/22/23 Unknown History capsule fluocinonide 0.05 % topical cream 1 applic topical DAILY 01/22/23 01/22/23 Unknown History ggljaeuciue-yfvrf-bsh-vit C-Mn 500 1 tablet PO DAILY 01/22/23 01/22/23 Unknown History mg-400 mg-166.6 mg tablet lyzeduzp-ajz-FM 0.4 mg-calcium 162 1 tablet PO DAILY 01/22/23 01/22/23 Unknown History mg-iron 18 bh-slbizos-clfbnl tablet Allergies Allergy/AdvReac Type Severity Reaction Status Date / Time simvastatin Allergy Intermediate Rash Verified 02/24/25 13:17 Review of Systems 2 Review of Systems: All systems reviewed & are unremarkable except as noted in HPI and below Constitutional: Constitutional: Reports as per HPI and Reports no additional constitutional complaints Eyes: Eyes: Reports as per HPI ENT: Reports system reviewed and no additional complaints, except as documented and Reports as per HPI Cardiovascular: Cardiovascular: Reports as per HPI and Reports no additional cardiovascular complaints Respiratory: Respiratory: Reports as per HPI and Reports no additional respiratory complaints Gastrointestinal: Gastrointestinal: Reports as per HPI and Reports no additional gastrointestinal complaints Genitourinary: Genitourinary: Reports no additional male genitourinary complaints and Reports as per HPI Musculoskeletal: Musculoskeletal: Reports no additional musculoskeletal complaints and Reports as per HPI Integumentary/Breasts: Skin/Breast: Reports system reviewed and no additional complaints, except as docu and Reports as per HPI Comments: left cheek has an erythematous lesion. He had a biopsy of the lesion couple of months ago. Neurologic: Reports system reviewed and no additional complaints, except as documented and Reports as per HPI Psychiatric: Psychiatric: Reports no additional psychiatric complaints and Reports as per HPI Endocrine: Endocrine: Reports no additional endocrine complaints and Reports as per HPI Hematologic/Lymphatic: Hematologic/Lymphatic: Reports no additional hematologic/lymphatic complaints and Reports as per HPI Allergic/Immunologic: Allergic/Immunologic: Reports no additional allergic/immunologic complaints and Reports as per HPI [facility] Past Medical History Medical History Deep venous thrombosis (04/2022) Transient ischemic attack Chronic anticoagulation Hypothyroidism Hyperlipidemia Hypertension Surgical History Surgical History History of bilateral knee replacement History of cataract extraction Family History Family History Father Heart disease Mother Leukemia Sibling Cerebrovascular accident Social History Social History Social History: He has 1 1 biological child and 1 step child. 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 Surrogate medical decision maker: Kailey Schuler, spouse. Code status: Full code. Smoking status: Former smoker Tobacco type: pipe Second hand tobacco smoke exposure: No Alcohol intake: never Substance use: never Substance use type: does not use Lack of Transportation: No Lack of Food: Never True Current Housing: I Do Not Have Housing Concerned About Future Housing: No Difficulty Paying Gas/Electric Bills: No Difficulty Paying for Meds: No Currently Unemployed: No Education: Associate Degree Difficulty w/ Childcare or Family Care: No Living arrangements: with family Additional living arrangements comments: Lives with spouse in [place]. Occupation/Education: retired Gender identity (if verbalized by the patient): Male Spiritual care concerns: No Agree to blood products: Yes Exam 2 Narrative: vitals are stable. Pulse of 71. Afebrile oxygen saturation 94% on room air Const: General: no acute distress Orientation/consciousness: patient oriented x3 Limitations: no limitations HENMT: Head: normal to inspection Ears: external ears normal F jesus/Nose/Sinus: Normal external nose present Face and sinus: normal facial exam Mouth: Yes Normal oral and palatal mucosa present Throat: posterior oropharynx normal Eyes: Conjunctivae: conjunctivae normal Pupils: Equal, round and reactive pupils present EOM: EOMs intact bilaterally Direct Ophthalmoscopy: no photophobia Neck: Neck: normal visual inspection and no lymphadenopathy Chest: Chest palpation & inspection: normal inspection of the chest and abnormal inspection of the chest Resp: Effort & Inspection: normal respiratory effort Auscultation: clear to auscultation bilaterally Cardio: Rate: regular rate Rhythm: regular rhythm GI: GI Palp: Yes Soft to palpation Auscultation: normal bowel sounds O ther: no tenderness/rigidity / rebound. : General: Yes no CVA tenderness Back/Spine/Pelvis: Back: no CVA tenderness Skin: General skin exam: normal color Rashes: no rashes Wounds: no wounds Neuro: General: patient oriented x3, moves all extremities, no meningeal signs, no focal motor deficits and CN's II-XI intact bilaterally Cranial nerves: Yes Nystagmus not present Speech: normal speech Gait exam (Neuro): Normal gait present Extrem: General: normal to inspection and no clubbing, cyanosis or edema Psych: Mental Status: mental status grossly normal Affect: normal affect Attitude: cooperative Course Course Emergency Course: Generalized weakness dehydration/acute renal failure electrolyte imbalance Vital Signs Vital signs: Vital Signs Temperature 36.9 C 02/24/25 13:17 Pulse Rate 71 02/24/25 13:17 Respiratory Rate 18 02/24/25 13:17 Blood Pressure 109/59 L 02/24/25 13:17 Pulse Oximetry 91 02/24/25 13:17 Oxygen Delivery Room Air 02/24/25 13:17 Temperature 36.9 C 02/24/25 13:17 Pulse Rate 67 02/24/25 16:46 Respiratory Rate 11 L 02/24/25 16:46 Blood Pressure 156/67 H 02/24/25 16:46 Pulse Oximetry 93 02/24/25 16:46 Oxygen Delivery Room Air 02/24/25 13:18 MDM - Weakness MDM Narrative Medical decision making narrative: Acute renal failure/ dehydration- After receiving 1 L of IV fluids the patient worked up. electrolyte imbalance generalized weakness-- no evidence of an MO. CT of the head did not show any acute findings. Differential Diagnosis Differential diagnosis: Likely acute myocardial infarction, hypoglycemia and dehydration Medical Records Attestation: I reviewed the patient's medical records. Lab Data Attestation: I reviewed the patient's lab results. 02/24/25 14:29 02/24/25 14:29 Labs: Lab Results 02/24/25 02/24/25 Range/Units 13:35 14:29 WBC Cancelled 5.6 RBC Cancelled 4.14 L Hgb Cancelled 12.6 Hct Cancelled 38.3 MCV Cancelled 92.5 MCH Cancelled 30.4 MCHC Cancelled 32.9 RDW Cancelled 14.1 Plt Count Cancelled 104 L MPV Cancelled 10.4 Immature Gran % (Auto) Cancelled Neut % (Auto) Cancelled Lymph % (Auto) Cancelled [place] % (Auto) Cancelled Eos % (Auto) Cancelled Baso % (Auto) Cancelled Lymph # (Auto) Cancelled [place] # (Auto) Cancelled Eos # (Auto) Cancelled Baso # (Auto) Cancelled Abs Immat Gran (auto) Cancelled Absolute Neuts (auto) Cancelled Absolute Nucleated RBC Cancelled Total Counted Cancelled Neutrophils % (Manual) Cancelled Band Neutrophils % Cancelled Lymphocytes % (Manual) Cancelled Monocytes % (Manual) Cancelled Eosinophils % (Manual) Cancelled Basophils % (Manual) Cancelled Metamyelocytes % Cancelled Myelocytes % Cancelled Promyelocytes % (Man) Cancelled Nucleated RBC % Cancelled Abs Neuts (Manual) Cancelled Abs Lymphs (Manual) Cancelled Abs Monocytes (Manual) Cancelled Absolute Eos (Manual) Cancelled Abs Basophils (Manual) Cancelled Nucleated RBCs Cancelled Hypersegmented Neuts Cancelled Atypical Lymphocytes Cancelled Blast Cells Cancelled Plasma Cells Cancelled Smudge Cells Cancelled Other Cell Type Cancelled Toxic Granulation Cancelled Dohle Bodies Cancelled Zechariah Rods Cancelled Platelet Estimate Cancelled Clumped Platelets Cancelled Large Platelets Cancelled Giant Platelets Cancelled % Immature Plt Fraction Cancelled 3.5 Polychromasia Cancelled Hypochromasia Cancelled Hyperchromasia Cancelled Poikilocytosis Cancelled Basophilic Stippling Cancelled Anisocytosis Cancelled Microcytosis Cancelled Macrocytosis Cancelled Spherocytes Cancelled Pappenheimer Bodies Cancelled Sickle Cells Cancelled Target Cells Cancelled Tear Drop Cells Cancelled Ovalocytes Cancelled Stomatocytes Cancelled Helmet Cells Cancelled Sanchez-Colome Bodies Cancelled [place] Rings Cancelled [place] Cells Cancelled Bite Cells Cancelled Crenated Cell Cancelled Acanthocytes (Spur) Cancelled Rouleaux Cancelled Schistocytes Cancelled PT Cancelled INR Cancelled Sodium Cancelled 135 L Potassium Cancelled 5.0 Chloride Cancelled 103 Carbon Dioxide Cancelled 28 Anion Gap Cancelled 4 BUN Cancelled 32 H D Creatinine Cancelled 1.40 H Estim Creat Clear Calc Cancelled 37 Estimated GFR Cancelled 48 L Glucose Cancelled 104 Calculated Osmolality Cancelled 286 Lactic Acid Cancelled Calcium Cancelled 8.8 Magnesium Cancelled 1.5 L Total Bilirubin Cancelled AST Cancelled ALT Cancelled Alkaline Phosphatase Cancelled Total Creatine Kinase Cancelled Troponin I Cancelled < 0.012 NT-Pro-B Natriuret Pep Cancelled 177 H Total Protein Cancelled Albumin Cancelled Lipase Cancelled TSH Cancelled Pending Urine Color Yellow (Yellow) Urine Appearance Clear (Clear) Urine pH 6.0 (5.0-8.0) Ur Specific [place] 1.025 H (1.010-1.020) Urine Protein Trace H (Negative) Urine Glucose (UA) Negative (Negative) Urine Ketones Negative (Negative) Ur Blood (Man) Negative (Negative) Urine Nitrate Negative (Negative) Urine Bilirubin Negative (Negative) Urine Urobilinogen 1.0 (0.2-1.0) mg/dL Leukocyte Esterase Rfl Negative (Negative) JAYA/UL Discharge Plan Discharge Clinical Impression: Dehydration, Weakness Acute renal failure (ARF) Qualifiers: Acute renal failure type: unspecified Qualified Code(s): N17.9 - Acute kidney failure, unspecified Patient Disposition: Home Condition: Stable Instructions: Antibiotic Form, Dehydration (ED), Weakness (ED) Patient Language: Czech Prescriptions: No Action atorvastatin 40 mg Tablet 40 mg PO HS Qty: 30 0RF aspirin [Children's Aspirin] 81 mg Tablet,Chewable 81 mg PO DAILY@0800 Qty: 30 0RF levothyroxine [Synthroid] 50 mcg Tablet 50 mcg PO DAILY lisinopril-hydrochlorothiazide 20-25 mg Tablet 1 tablet PO DAILY triamcinolone-emollient comb45 0.1 % Cream 1 applic TOPICAL TID Patient Comments: Applies it to bilateral legs Rx Instructions: Applies it to bilateral legs ascorbic acid (vitamin C) 1,000 mg Tablet 1,000 mg PO DAILY cyanocobalamin (vitamin B-12) 1,000 mcg Tablet 1,000 mcg PO DAILY fluocinonide 0.05 % Cream 1 applic TOPICAL DAILY docosahexaenoic acid-epa Capsule 1 cap PO DAILY ufgpofccliw-jlxxa-xne-vit C-Mn 500-400-166.6 mg Tablet 1 tablet PO DAILY jo-wxg-IQ-Dy-Ct-udfesrc-lutein 0.4-162-18 mg Tablet 1 tablet PO DAILY cholecalciferol (vitamin D3) 50 mcg (2,000 unit) Tablet 50 mcg PO DAILY Follow-up/Referrals: Harms,Nathaniel Wellington M.D. [Primary Care Provider] - Time of Disposition: 17:47
--- OUTSIDE RECORDS SUMMARY | 2025-02-24 13:17 | XMS_ITS | Referral Summary ---
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 Role Phone Nathaniel Corrales MD Primary Care Provider [phone] Encounters Date Type Department Care Team Description 02/20/2025 Telephone [facility] [address] [place] [address] Nathaniel Corrales MD Med Refill ( meloxicam (MOBIC) 7.5 mg tablet/ tiZANidine (ZANAFLEX) 2 mg tablet) 02/20/2025 Orders Only [facility] [address] [place] [phone] Shan Butler MD Status post placement of implantable loop recorder (Primary Dx); Syncope, unspecified syncope type 02/12/2025 8:00 AM CDT Ancillary Procedure [facility] [address] [place] [id number] NICM (nonischemic cardiomyopathy) (HCC); Syncope and collapse; NSVT (nonsustained ventricular tachycardia) (HCC) 01/02/2025 Results Follow-Up [facility] [address] [place] [address] Shahnaz An NP XR Spine Lumbar Complete 4 Or More 01/01/2025 8:00 AM CDT Ancillary Procedure [facility]iology [address] [place] [phone] Status post placement of implantable loop recorder (Primary Dx); NICM (nonischemic cardiomyopathy) ([facility]); Syncope and collapse; NSVT (nonsustained ventricular tachycardia) ([facility]) 12/29/2024 10:00 AM CDT Office Visit [facility] Cardiology at [address] [place] [address] Shan Butler MD Carotid sinus syncope (Primary Dx); Status post placement of implantable loop recorder 12/27/2024 2:00 PM CDT - 12/27/2024 11:59 PM CDT Hospital Encounter [facility] [address] [place] [address] Acute bilateral low back pain without sciatica Discharge Disposition: Discharge to home or self care 12/26/2024 1:30 PM CDT Office Visit [facility] [address] [phone] Shahnaz An NP Acute bilateral low back pain without sciatica (Primary Dx); BMI 26.0-26.9,adult 12/19/2024 Telephone [facility] [address] [phone] Nathaniel Corrales MD Med Refill; Triamcinolon 0.1% from Last 3 Months Allergies Active Allergy Reactions Criticality Noted Date Comments Simvastatin Rash Medium 01/08/2022 Medications cholecalcifero l (VITAMIN D3) 2,000 unit capsule 0 0 07/22/20 14 Active cyanocobalamin (vitamin B-12) 1,000 mcg tablet 1 a day 0 08/28/19 12 Active glucosamine-ch ondroit-vit C-Mn capsule Take by mouth daily. Active fish oil-dha-epa 1,200-144-216 mg capsule Take by mouth. Acti ve multivit-mins- ferrous gluconat (CENTRUM) 0.6 mg iron/mL liquid Active ascorbic acid (VITAMIN C) 1,000 mg tablet Take by mouth. Activ e fluocinonide (LIDEX) 0.05 % ointment As needed 02/27/20 20 Active aspirin (Aspirin Childrens) 81 mg chewable tablet Take 1 tablet (81 mg total) by mouth daily 12/04/19 23 Active clopidogreL (PLAVIX) 75 mg tablet Take 1 tablet by mouth once daily 90 tablet 03/30/20 24 Active Additional Information Patient not taking.Reported on 12/29/2024 lisinopril-hyd roCHLOROthiazi de (ZESTORETIC) 20-25 mg per tablet Take 1 tablet by mouth once daily 100 tablet 11/08/19 25 Active triamcinolone (KENALOG) 0.1 % cream APPLY TO BACK, ARMS, AND ABDOMINAL WALL 2-3 TIMES A DAY DIRECTED. 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 90 tablet 1 12/26/19 25 Active tiZANidine (ZANAFLEX) 2 mg tabletIndicati ons:Acute bilateral low back pain without sciatica Take 1 tablet (2 mg total) by mouth every 6 (six) hours as needed for muscle spasms 30 tablet 1 12/27/19 25 Active atorvastatin (LIPITOR) 40 mg tablet Take 1 tablet by mouth once daily 90 tablet 02/06/20 25 Active atorvastatin (LIPITOR) 40 mg tablet Take 1 tablet by mouth once daily 90 tablet 10/16/19 25 025 Discontinued meloxicam (MOBIC) 7.5 mg tabletIndicati ons:Acute bilateral low back pain without sciatica Take 1-2 tablets (7.5-15 mg total) by mouth daily 60 tablet 3 12/27/19 25 025 Discontinued Active Problems Problem Noted Date Diagnosed Date Acute bilateral low back pain without sciatica 0 12/26/2024 Assessment & Plan (12/26/2024 3:03 PM CDT): S/p fall backwards down stairs 3 weeks ago, reports falling down approximately [address] hurting lower back. Noted significant improvement initially with use of naproxen. Denies any bowel or bladder disturbance, no radiating pain or numbness/tingling. No bony tenderness on exam, no bruising or swelling. Pain present to bilateral lower back, more muscular in nature. Will check x-ray to confirm, rule out fracture. Discussed consistent use of NSAIDs and trial of muscle relaxer. Reviewed medication side effects and scheduling. Will follow-up with next steps after review of x-ray. Hypertension, essential 05/21/2024 Assessment & Plan (05/21/2024 5:55 AM CDT): Stable on lisinopril/hctz. WIll continue to montior home BP and montior for orthostasis. Hyperglycemia 05/21/2024 Assessment & Plan (05/21/2024 5:55 AM CDT): Ongoing prediabetes and will follow response. Flu vaccine need 05/21/2024 Syncope and collapse 12/02/2023 Scalp hematoma 08/24/2023 Stroke 08/24/2023 History of bilateral knee replacement 08/24/2023 Loss of consciousness 08/24/2023 Syncope 08/24/2023 Visit for wound check 02/01/2023 Status post placement of implantable loop record er 01/25/2023 Overview (01/25/2023): [employer] Loop Rec[employer]. Dx; Recurrent Syncope. DOI 01/25/2023-Luke. [employer] remote monitoring. Syncope and collapse 01/07/2023 Mild cognitive impairment 04/15/2021 Assessment & Plan (04/15/2021 11:37 AM CDT): Neuro eval and reports missed one. reprt defines mci and given stability over time and small vessel dis this appera mainl from small vessel and not alt type of issue push risk lower and tighten At low risk for fall 04/15/2021 Assessment & Plan (04/15/2021 11:56 AM CDT): Low fall risk standard discussion encouraging to take up throw rugs BMI 28.0-28.9,adult 04/15/2021 Assessment & Plan (01/08/2022 11:28 AM CDT): Keep wt stable Assessment & Plan (09/09/2021 10:42 AM PUBLIC RELATIONS MANAGER): Work to keep wt stable Assessment & Plan (05/06/2021 9:26 AM CDT): Keep wtr stable Assessment & Plan (04/15/2021 11:57 AM CDT): Work to keep stable Or drop a few Bug bite 03/11/2021 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 stopthe fenofibrate for now and lokaat restartin gfif can tolerate. Assessment & Plan (12/24/2020 9:25 AM CDT): Seen on past ct. And plays some role with memory. Left pontine stroke 12/24/2020 Assessment & Plan (12/24/2020 9:30 AM CDT): Check b12 an dconfirm nl on risk control referral to neuro for opoinl start namenda in future once seen on asa and stay on Medicare annual wellness visit, subsequent 05/22 Assessment & Plan (05/21/2024 5:55 AM CDT): Focus of exam is preventative in nature. Reivewed immunizations, reivewed sun/skin cancer screneing. Reviewed colon/prostate age appropriate screening recommendations. Reviewed fall prevnetion. Assessment & Plan (04/15/2021 11:58 AM CDT): Low fall risk depriens scren neg cog screen neg and seen dr grijalva for up to date on flu.p shot and shinlgles shot series haed covid shots. Age out of colon at 80. 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 And topoical. Bilateral carotid artery disease 01/11/2018 Assessment & Plan (05/21/2024 5:53 AM CDT): Secondary prevention as above. COntinue to look for records from [facility] with stent placement. Assessment & Plan (09/09/2021 10:41 AM PUBLIC RELATIONS MANAGER): Asa and tight risk controll and rescan every coupld lyrs Assessment & Plan (04/15/2021 11:34 AM CDT): chreonic and check in evrey 1-2 yrs Tight risk contorl and asa Assessment & Plan (08/26/2020 2:45 PM PUBLIC RELATIONS MANAGER): Post op stents and risk contorll With tight ldl Assessment & Plan (05/22/2019 10:33 AM CDT): Will forward scans on. fornow the dyd studies would be expected to show less obstructino thenen sono and would not r epeat Assessment & Plan (05/02/2019 2:41 PM CDT): Hx of endometrectomy 2001 w/o any prior scans. Reordering carotid duplex for maintenance given re-ocurring syncopal episodes (even though not as likely to trigger). Cont statin, ASA as prior taken. Assessment & Plan (08/24/2018 11:34 AM PUBLIC RELATIONS MANAGER): Work to tighten risk and stay on asa Assessment & Plan (01/11/2018 11:17 AM CDT): Restart 81 asa , qork to get curetn carotid studies going forward. Target ldl less then 100. Off St atin now. Prior stents. Lung mass 01/11/2018 Assessment & Plan (01/11/2018 11:28 AM CDT): Repeat ct to f.u on prior question of mass or not. Try for 2 qts gatoraid the hr or so [prior to ct and as soon as gets out.bmp prior to ct and creat the 2-3 dasy aft er. Chronic renal failure, stage 2 (mild) 01/11/2018 Assessment & Plan (05/21/2024 5:54 AM CDT): Reviewed import of hydration and avoidance of nephrotoxic medications. Assessment & Plan (01/08/2022 11:26 AM CDT): egr 87 and nl Screen consider repeat 24 hr urine to rexcreen To try to minimize the worsening and possible improvement in the renal function there are several things to try to do. The patient should work to get off of (if on) drugs Like Prilosec/prevacid/protonix/nexium,etc. This does not include zantac/pepcid or Tagement. It ws shown that there is an increased risk of kidney dysfunction if you use Prilosec like meds.The patient should also stay off of regular use of scripted arthritis pills like Celebrex.mobic,naprosyn,etc. The over the counter pills of this nature are Advil/motrin/ibuprofen and aleve/naproxen. Regular use of these over the counter pills, Particularly at high doses and not scattered use of the meds also can harm the kidneys. Assessment & Plan (09/09/2021 10:44 AM PUBLIC RELATIONS MANAGER): yr'ly 24 hr ruine cr cl an watch dietTo try to minimize the worsening and possible improvement in the renal function there are several things to try to do. The patient should work to get off of (if on) drugs Like Prilosec/prevacid/protonix/nexium,etc. This does not include zantac/pepcid or Tagement. It ws shown that there is an increased risk of kidney dysfunction if you use Prilosec like meds.The patient should also stay off of regular use of scripted arthritis pills like Celebrex.mobic,naprosyn,etc. The over the counter pills of this nature are Advil/motrin/ibuprofen and aleve/naproxen. Regular use of these over the counter pills, Particularly at high doses and not scattered use of the meds also can harm the kidneys. Assessment & Plan (04/15/2021 11:34 AM CDT): Chronic stable creat To try to minimize the worsening and possible improvement in the renal function there are several things to try to do. The patient should work to get off of (if on) drugs Like Prilosec/prevacid/protonix/nexium,etc. This does not include zantac/pepcid or Tagement. It ws shown that there is an increased risk of kidney dysfunction if you use Prilosec like meds.The patient should also stay off of regular use of scripted arthritis pills like Celebrex.mobic,naprosyn,etc. The over the counter pills of this nature are Advil/motrin/ibuprofen and aleve/naproxen. Regular use of these over the counter pills, Particularly at high doses and not scattered use of the meds also can harm the kidneys. Assessment & Plan (08/24/2018 11:35 AM PUBLIC RELATIONS MANAGER): Stable screenigns adbn yr'ly 24 hr urine. May next due time and aftr that Assessment & Plan (01/11/2018 11:23 AM CDT): Repeat 24 hr urine to monitor in the futureTo try to minimize the worsening and possible improvement in the renal function there are several things to try to do. The patient should work to get off of (if on) drugs Like Prilosec/prevacid/protonix/nexium,etc. This does not include zantac/pepcid or Tagement. It ws shown that there is an increased risk of kidney dysfunction if you use Prilosec like meds.The patient should also stay off of regular use of scripted arthritis pills like Celebrex.mobic,naprosyn,etc. The over the counter pills of this nature are Advil/motrin/ibuprofen and aleve/naproxen. Regular use of these over the counter pills, Particularly at high doses and not scattered use of the meds also can harm the kidneys. History of pulmonary embolism 07/29/2017 Assessment & Plan (01/11/2018 11:07 AM CDT): Given Prior clots on long trips and post op pe then discussed do we stop the coumadin or not. As high risk time for clot can Stop as long as up and about and Back to nl. Is at this time and will stopt he coumadin. And if cvt or pe without reason then would go on and stay on. Restart coumadin for long trips and surgery Assessment & Plan (07/29/2017 4:56 PM PUBLIC RELATIONS MANAGER): Patient will continue on chronic anticoagulation with Coumadin as previously directed. He understands the importance of compliance with routine protime checks. Primary osteoarthritis of left knee 06/14/2017 Colon cancer screening 03/02/2017 Assessment & Plan (04/13/2018 3:23 PM CDT): Setup colon screen Assessment & Plan (03/02/2017 10:07 AM CDT): Order labs for nov. IGT (impaired glucose tolerance) 03/02/2017 Assessment & Plan (01/08/2022 11:24 AM CDT): a12c at 6.3 and keep tight Assessment & Plan (09/09/2021 10:46 AM PUBLIC RELATIONS MANAGER): a1c check Assessment & Plan (05/06/2021 9:24 AM CDT): Check on reutnr Assessment & Plan (04/15/2021 11:41 AM CDT): a1c at 6.1 and 6.5 niddm . Assessment & Plan (12/24/2020 9:27 AM CDT): a1c at 6.2 and 6.5 niddm diet Assessment & Plan (08/26/2020 2:49 PM PUBLIC RELATIONS MANAGER): A`1c pre diabetic and stable at 6.2 Assessment & Plan (02/07/2019 10:22 AM CDT): Check a1c on return Assessment & Plan (08/24/2018 11:32 AM PUBLIC RELATIONS MANAGER): a1c at 5.9 and 5.6 nl. Assessment & Plan (01/11/2018 11:10 AM CDT): checkm a1c on return Assessment & Plan (09/06/2017 3:15 PM PUBLIC RELATIONS MANAGER): Fasting 116 and elizabeth check a1c on return Assessment & Plan (03/02/2017 10:12 AM CDT): a1c at 5a.9 and 5.6 adnless nl Status post total right knee replacement 015 Arthritis 09/03/2014 Knee osteoarthritis 05/02/2014 Hyperlipidemia 01/06/2014 Overview (11/25/2016): HYPERLIPIDEMIA NEC/NOS Assessment & Plan (05/21/2024 5:53 AM CDT): Continue on atrovastatin for secondary prevnetion of carotid atherosclerosis and prior stent placement. Assessment & Plan (01/08/2022 11:24 AM CDT): ldl at 59 and great and kep tight and well toleratedYour cholesterol in the form of ldl (bad) cholesterol,hdl(good) cholesterol and triglycerides are monitored. The triglycerides respond to reduction/controll of your simple carbs/sugars In such items as sugared soda/sweet tea along with fruit juices(containing natural sugar) even if no added sugar is added. LDL cholesterol is reduced with reducing daily intake of fats and liz. saturated fats. The monosaturated fats like olive oil are not harmful except in the calories they contained. Whole milk cheese needs to be remembered along with whole milk products And limited. Assessment & Plan (09/09/2021 10:42 AM PUBLIC RELATIONS MANAGER): ldl sropped to 52 and tdrigs up to 500 with Holding the fenoirfbrate and elizabeth stay on and on atorvastin 20 as good no chansYour cholesterol in the form of ldl (bad) cholesterol,hdl(good) cholesterol and triglycerides are monitored. The triglycerides respond to reduction/controll of your simple carbs/sugars In such items as sugared soda/sweet tea along with fruit juices(containing natural sugar) even if no added sugar is added. LDL cholesterol is reduced with reducing daily intake of fats and liz. saturated fats. The monosaturated fats like olive oil are not harmful except in the calories they contained. Whole milk cheese needs to be remembered along with whole milk products And limited. Assessment & Plan (05/06/2021 9:23 AM CDT): ldl from 94 To 76 to 65 now on 20 of atrovastin and off fenofibarate for now Stay on 20 by self and awit repeat full recheck Your cholesterol in the form of ldl (bad) cholesterol,hdl(good) cholesterol and triglycerides are monitored. The triglycerides respond to reduction/controll of your simple carbs/sugars In such items as sugared soda/sweet tea along with fruit juices(containing natural sugar) even if no added sugar is added. LDL cholesterol is reduced with reducing daily intake of fats and liz. saturated fats. The monosaturated fats like olive oil are not harmful except in the calories they contained. Whole milk cheese needs to be remembered along with whole milk products And limited. Assessment & Plan (04/15/2021 11:59 AM CDT): ldl at 78 and on 80 pravastatin and switch to high pot Statin and target 60 or less. Stop pravastatin and start atorvastin 20 and start at 1/2 at ost and then a fuol tab and check ldl the week later or 1-2 days before nov and elizabeth be at max affect within days For now stop the fenofibrate and elizabeth look at restarting once settle on atrovcstin dose needed given target 60 or less. Your cholesterol in the form of ldl (bad) cholesterol,hdl(good) cholesterol and triglycerides are monitored. The triglycerides respond to reduction/controll of your simple carbs/sugars In such items as sugared soda/sweet tea along with fruit juices(containing natural sugar) even if no added sugar is added. LDL cholesterol is reduced with reducing daily intake of fats and liz. saturated fats. The monosaturated fats like olive oil are not harmful except in the calories they contained. Whole milk cheese needs to be remembered along with whole milk products And limited. Assessment & Plan (12/24/2020 9:29 AM CDT): ldl at 82 and on 80 mg pravaastin and given prior Issue with atorvasitn will not change statins on fenofibrate and hdl still low at 24 and trig at 302 ? Add zetia in future Your cholesterol in the form of ldl (bad) cholesterol,hdl(good) cholesterol and triglycerides are monitored. The triglycerides respond to reduction/controll of your simple carbs/sugars In such items as sugared soda/sweet tea along with fruit juices(containing natural sugar) even if no added sugar is added. LDL cholesterol is reduced with reducing daily intake of fats and liz. saturated fats. The monosaturated fats like olive oil are not harmful except in the calories they contained. Whole milk cheese needs to be remembered along with whole milk products And limited. Assessment & Plan (08/26/2020 2:49 PM PUBLIC RELATIONS MANAGER): ldl moises pped 30 to 75and good given prior issue of drug intolerance will bnot push harder with meds for now and monitorYour cholesterol in the form of ldl (bad) cholesterol,hdl(good) cholesterol and triglycerides are monitored. The triglycerides respond to reduction/controll of your simple carbs/sugars In such items as sugared soda/sweet tea along with fruit juices(containing natural sugar) even if no added sugar is added. LDL cholesterol is reduced with reducing daily intake of fats and liz. saturated fats. The monosaturated fats like olive oil are not harmful except in the calories they contained. Whole milk cheese needs to be remembered along with whole milk products And limited. Assessment & Plan (05/22/2019 10:31 AM CDT): ldl at 100 and want to be less then 70. So go to 40 mg on pravachol and see if helps. To get on targtetYour cholesterol in the form of ldl (bad) cholesterol,hdl(good) cholesterol and triglycerides are monitored. The triglycerides respond to reduction/controll of your simple carbs/sugars In such items as sugared soda/sweet tea along with fruit juices(containing natural sugar) even if no added sugar is added. LDL cholesterol is reduced with reducing daily intake of fats and liz. saturated fats. The monosaturated fats like olive oil are not harmful except in the calories they contained. Whole milk cheese needs to be remembered along with whole milk products And limited. Assessment & Plan (02/07/2019 10:19 AM CDT): ldl at ldl at 120 and wikll go to 20 on the provachol from 10 and targtet to get the ldl less then 100Your cholesterol in the form of ldl (bad) cholesterol,hdl(good) cholesterol and triglycerides are monitored. The triglycerides respond to reduction/controll of your simple carbs/sugars In such items as sugared soda/sweet tea along with fruit juices(containing natural sugar) even if no added sugar is added. LDL cholesterol is reduced with reducing daily intake of fats and liz. saturated fats. The monosaturated fats like olive oil are not harmful except in the calories they contained. Whole milk cheese needs to be remembered along with whole milk products And limited. Assessment & Plan (08/24/2018 11:31 AM PUBLIC RELATIONS MANAGER): ldl at 1`31 but statin skin tox. Taking 1 q week and no issues. And wiill go back on and stat at 1/2 3 days a week and thden afer 2 wks go to 5 days a week and in2 more week then daily 1/2 pill and check on. Your cholesterol in the form of ldl (bad) cholesterol,hdl(good) cholesterol and triglycerides are monitored. The triglycerides respond to reduction/controll of your simple carbs/sugars In such items as sugared soda/sweet tea along with fruit juices(containing natural sugar) even if no added sugar is added. LDL cholesterol is reduced with reducing daily intake of fats and liz. saturated fats. The monosaturated fats like olive oil are not harmful except in the calories they contained. Whole milk cheese needs to be remembered along with whole milk products And limited. Assessment & Plan (04/13/2018 3:44 PM CDT): Trial praavastin at 10 mg and take 1/2 pill and then pmake that 1/2 last a week and recheck onreturn. Additionally if feels rash worsening then stop it Assessment & Plan (01/11/2018 11:11 AM CDT): ldl up to 14 0's and target less thoeon 100. Off meds for skin issuesYour cholesterol in the form of ldl (bad) cholesterol,hdl(good) cholesterol and triglycerides are monitored. The triglycerides respond to reduction/controll of your simple carbs/sugars In such items as sugared soda/sweet tea along with fruit juices(containing natural sugar) even if no added sugar is added. LDL cholesterol is reduced with reducing daily intake of fats and liz. saturated fats. The monosaturated fats like olive oil are not harmful except in the calories they contained. Whole milk cheese needs to be remembered along with whole milk products And limited. Assessment & Plan (09/06/2017 3:14 PM PUBLIC RELATIONS MANAGER): ldl at 73 and great. Low enough to allow to eat whatever watnts in an effort to gethe Protein up. Assessment & Plan (03/02/2017 10:07 AM CDT): ldl at 83 and les then 100 ideal.Your cholesterol in the form of ldl (bad) cholesterol,hdl(good) cholesterol and triglycerides are monitored. The triglycerides respond to reduction/controll of your simple carbs/sugars In such items as sugared soda/sweet tea along with fruit juices(containing natural sugar) even if no added sugar is added. LDL cholesterol is reduced with reducing daily intake of fats and liz. saturated fats. The monosaturated fats like olive oil are not harmful except in the calories they contained. Whole milk cheese needs to be remembered along with whole milk products And limited. Hypertensive kidney disease 01/06/2014 Overview (11/26/2016): BENIGN HYPERTENSION Assessment & Plan (09/09/2021 10:45 AM PUBLIC RELATIONS MANAGER): bp good and kidney stableHypertension, Medical treament revolves around weight control, salt management, and meds when necessary. long as weight loss is necessary and you are able to drop weight we can cont to monitor the blood pressure and not add meds. Once the weight is not changing then it becomes nesessary to add meds to be able to reach the goal bp. Assessment & Plan (05/06/2021 9:26 AM CDT): Stop k I dec and recheck for now 4 .2 and should do ok off the k and prove in new yrHypertension, Medical treament revolves around weight control, salt management, and meds when necessary. long as weight loss is necessary and you are able to drop weight we can cont to monitor the blood pressure and not add meds. Once the weight is not changing then it becomes nesessary to add meds to be able to reach the goal bp.To try to minimize the worsening and possible improvement in the renal function there are several things to try to do. The patient should work to get off of (if on) drugs Like Prilosec/prevacid/protonix/nexium,etc. This does not include zantac/pepcid or Tagement. It ws shown that there is an increased risk of kidney dysfunction if you use Prilosec like meds.The patient should also stay off of regular use of scripted arthritis pills like Celebrex.mobic,naprosyn,etc. The over the counter pills of this nature are Advil/motrin/ibuprofen and aleve/naproxen. Regular use of these over the counter pills, Particularly at high doses and not scattered use of the meds also can harm the kidneys. Assessment & Plan (04/15/2021 11:38 AM CDT): The bp good and creat touch lower at 1.02 freom 1.1 no changsd in bp meds and rehcek c 24 hr ruien next springTo try to minimize the worsening and possible improvement in the renal function there are several things to try to do. The patient should work to get off of (if on) drugs Like Prilosec/prevacid/protonix/nexium,etc. This does not include zantac/pepcid or Tagement. It ws shown that there is an increased risk of kidney dysfunction if you use Prilosec like meds.The patient should also stay off of regular use of scripted arthritis pills like Celebrex.mobic,naprosyn,etc. The over the counter pills of this nature are Advil/motrin/ibuprofen and aleve/naproxen. Regular use of these over the counter pills, Particularly at high doses and not scattered use of the meds also can harm the kidneys. Hypertension, Medical treament revolves around weight control, salt management, and meds when necessary. long as weight loss is necessary and you are able to drop weight we can cont to monitor the blood pressure and not add meds. Once the weight is not changing then it becomes nesessary to add meds to be able to reach the goal bp. Assessment & Plan (12/24/2020 9:28 AM CDT): bp good and gfr at 85 and low end of nl so stable and no intervention but limit risk situation as much as possible and recheck in a yrHypertension, Medical treament revolves around weight control, salt management, and meds when necessary. long as weight loss is necessary and you are able to drop weight we can cont to monitor the blood pressure and not add meds. Once the weight is not changing then it becomes nesessary to add meds to be able to reach the goal bp.To try to minimize the worsening and possible improvement in the renal function there are several things to try to do. The patient should work to get off of (if on) drugs Like Prilosec/prevacid/protonix/nexium,etc. This does not include zantac/pepcid or Tagement. It ws shown that there is an increased risk of kidney dysfunction if you use Prilosec like meds.The patient should also stay off of regular use of scripted arthritis pills like Celebrex.mobic,naprosyn,etc. The over the counter pills of this nature are Advil/motrin/ibuprofen and aleve/naproxen. Regular use of these over the counter pills, Particularly at high doses and not scattered use of the meds also can harm the kidneys. Assessment & Plan (08/26/2020 2:47 PM PUBLIC RELATIONS MANAGER): The bp good and screening cr nl but up and suports crf at level 2 Check Will check 24 hr uiren on return for C.c.Hypertension, Medical treament revolves around weight control, salt management, and meds when necessary. long as weight loss is necessary and you are able to drop weight we can cont to monitor the blood pressure and not add meds. Once the weight is not changing then it becomes nesessary to add meds to be able to reach the goal bp.To try to minimize the worsening and possible improvement in the renal function there are several things to try to do. The patient should work to get off of (if on) drugs Like Prilosec/prevacid/protonix/nexium,etc. This does not include zantac/pepcid or Tagement. It ws shown that there is an increased risk of kidney dysfunction if you use Prilosec like meds.The patient should also stay off of regular use of scripted arthritis pills like Celebrex.mobic,naprosyn,etc. The over the counter pills of this nature are Advil/motrin/ibuprofen and aleve/naproxen. Regular use of these over the counter pills, Particularly at high doses and not scattered use of the meds also can harm the kidneys. Assessment & Plan (09/22/2019 9:52 AM PUBLIC RELATIONS MANAGER): Recommend DASH diet, heart healthy lifestyle, exercise. Discussed the risks of hypertension. Assessment & Plan (05/22/2019 10:33 AM CDT): priro bp pdrop and Syncope for?reason puts at risk to re occcur if reporduces samw evetnt. So watch for reason to cause lightnheaed Spells and if runs s time and not then consider pushing meds more Assessment & Plan (05/02/2019 2:40 PM CDT): Slightly higher today in clinic, given concerns will continue prior alt daily dosing of lisinopril & lisinopril/HCTZ, DASH diet. ASA 81mg daily given prior endometrectomy, TIA, HTN. Risk associated with uncontrolled HTN discussed. Assessment & Plan (12/22/2018 8:07 AM CDT): Recommend DASH diet, heart-healthy lifestyle, exercise. Discussed the risks of hypertension. Assessment & Plan (02/25/2018 12:39 PM CDT): Recommend DASH diet, heart-healthy lifestyle, exercise. Discussed the risks of hypertension. Assessment & Plan (01/11/2018 11:05 AM CDT): Restart lisinopril and Bring in dose to confirm what on and then direct what to do next. liekly will need to resttart the hctz but wait for restart lisinopril by self. Hypertension, Medical treament revolves around weight control, salt management, and meds when necessary. long as weight loss is necessary and you are able to drop weight we can cont to monitor the blood pressure and not add meds. Once the weight is not changing then it becomes nesessary to add meds to be able to reach the goal bp. Assessment & Plan (09/06/2017 3:13 PM PUBLIC RELATIONS MANAGER): bp good and no changes. Cont to watch, no diet linmits Assessment & Plan (07/29/2017 4:53 PM PUBLIC RELATIONS MANAGER): Patient's blood pressure has been hypotensive outside of the office. He has recently lost 10 lb postoperatively. He is currently taking just a half of a lisinopril/hctz 20-12.5 mg tablet. I recommend we discontinue lisinopril/hctz altogether. Will recheck his blood pressure when he returns for follow-up next week. Assessment & Plan (03/11/2017 3:03 PM CDT): The bp on high side and will go to 20/25 and replaces 20/12.5 and this will inch down bpHypertension, Medical treament revolves around weight control, salt management, and meds when necessary. long as weight loss is necessary and you are able to drop weight we can cont to monitor the blood pressure and not add meds. Once the weight is not changing then it becomes nesessary to add meds to be able to reach the goal bp. Assessment & Plan (03/02/2017 10:06 AM CDT): The bp good and no changesHypertension, Medical treament revolves around weight control, salt management, and meds when necessary. long as weight loss is necessary and you are able to drop weight we can cont to monitor the blood pressure and not add meds. Once the weight is not changing then it becomes nesessary to add meds to be able to reach the goal bp. Hypothyroidism 01/06/2014 Overview (11/26/2016): HYPOTHYROIDISM NOS Assessment & Plan (05/21/2024 5:53 AM CDT): Clinically euthyroid. Continue to monitor TFTs. WIll follow response. Assessment & Plan (09/09/2021 10:45 AM PUBLIC RELATIONS MANAGER): Stay on and check tsh on return Assessment & Plan (05/06/2021 9:24 AM CDT): Stay on meds an keep tsh low nl to help the ldl Assessment & Plan (04/15/2021 11:55 AM CDT): Stay on same meds and re check next spring Assessment & Plan (12/24/2020 9:27 AM CDT): tsh 2.6 and sst able and no on meds no chagds Assessment & Plan (08/26/2020 2:48 PM PUBLIC RELATIONS MANAGER): Check on reoutrn Assessment & Plan (01/11/2018 11:08 AM CDT): Cont omeds and check yr'ly if good Assessment & Plan (09/06/2017 3:15 PM PUBLIC RELATIONS MANAGER): Cont thyroid meds and will check on return Osteoarthritis of knee 01/06/2014 Overview (11/28/2016): DJD (degenerative joint disease) of knee Assessment & Plan (07/29/2017 4:58 PM PUBLIC RELATIONS MANAGER): He is now status post knee replacement. He continues to follow with orthopedist as directed. Assessment & Plan (03/11/2017 3:02 PM CDT): Failed conservative rx and going to get knee replacement. Cleared for surgery at miold risk of age. Given prior 3 dvt's would ask to be more aggressive for prevention of dvt with this dvt risk associated surgery Assessment & Plan (03/02/2017 10:10 AM CDT): On 375 naprosyon and doing weell without For several wks Hyperlipidemia 01/06/2014 Overview (08/24/2023): HYPERLIPIDEMIA NEC/NOS Last Assessment & Plan: ldl at 82 and on 80 mg pravaastin and given prior Issue with atorvasitn will not change statins on fenofibrate and hdl still low at 24 and trig at 302 ? Add zetia in future Your cholesterol in the form of ldl (bad) cholesterol,hdl(good) cholesterol and triglycerides are monitored. The triglycerides respond to reduction/controll of your simple carbs/sugars In such items as sugared soda/sweet tea along with fruit juices(containing natural sugar) even if no added sugar is added. LDL cholesterol is reduced with reducing daily intake of fats and liz. saturated fats. The monosaturated fats like olive oil are not harmful except in the calories they contained. Whole milk cheese needs to be remembered along with whole milk products And limited. Hypertensive kidney disease 01/06/2014 Overview (08/24/2023): BENIGN HYPERTENSION Last Assessment & Plan: bp good and gfr at 85 and low end of nl so stable and no intervention but limit risk situation as much as possible and recheck in a yrHypertension, Medical treament revolves around weight control, salt management, and meds when necessary. long as weight loss is necessary and you are able to drop weight we can cont to monitor the blood pressure and not add meds. Once the weight is not changing then it becomes nesessary to add meds to be able to reach the goal bp.To try to minimize the worsening and possible improvement in the renal function there are several things to try to do. The patient should work to get off of (if on) drugs Like Prilosec/prevacid/protonix/nexium,etc. This does not include zantac/pepcid or Tagement. It ws shown that there is an increased risk of kidney dysfunction if you use Prilosec like meds.The patient should also stay off of regular use of scripted arthritis pills like Celebrex.mobic,naprosyn,etc. The over the counter pills of this nature are Advil/motrin/ibuprofen and aleve/naproxen. Regular use of these over the counter pills, Particularly at high doses and not scattered use of the meds also can harm the kidneys. Hypothyroidism 01/06/2014 Overview (08/24/2023): HYPOTHYROIDISM NOS Last Assessment & Plan: tsh 2.6 and sst able and no on meds no chagds Carotid stenosis, left 09/25/2013 Carotid artery stenosis 07/31/2013 Carotid stenosis, bilateral 07/16/2013 Hypertension 07/16/2013 TIA (transient ischemic attack) 07/15/2013 Resolved Problems Problem Noted Date Diagnosed Date Resolved Date Orthostatic syncope 11/23/2018 12/02/19 Assessment & Plan (02/07/2019 10:21 AM CDT): Mild drop and will not changes meds for now Assessment & Plan (11/23/2018 9:23 AM CDT): bp drop here and story supports bp drop on standing so all sup[orts with hx and findings to have bbp drop as cause of syncope. Go to 20 mg plain onohte lisinorop . brfing in bp neter and check bp in 3-4 wks. Vol .salt load if se's signs And put feet up and butt down Att that time Hypercoagulable state 04/13/20182023 Assessment & Plan (01/08/2022 11:27 AM CDT): Hx dvvt with 2 long distance plane riedes wnt on coumadin with trips aftger non clots since get up and walk on train wear support hose and asa Assessment & Plan (09/09/2021 10:45 AM PUBLIC RELATIONS MANAGER): On asa and stable and not on formal anticaoag Assessment & Plan (04/15/2021 11:55 AM CDT): Asa felt enough for now Assessment & Plan (08/26/2020 2:49 PM PUBLIC RELATIONS MANAGER): On asa and no breakthru Assessment & Plan (08/24/2018 11:33 AM PUBLIC RELATIONS MANAGER): Sty on asa daily Assessment & Plan (04/13/2018 3:21 PM CDT): Cont Anticoag. And monitor Essential hypertension 04/13/201811/02 Assessment & Plan (08/24/2018 11:32 AM PUBLIC RELATIONS MANAGER): bp high at home and great hewe. Bring in [id number] and cross check and confirm match and goo bruce homeHypertension, Medical treament revolves around weight control, salt management, and meds when necessary. long as weight loss is necessary and you are able to drop weight we can cont to monitor the blood pressure and not add meds. Once the weight is not changing then it becomes nesessary to add meds to be able to reach the goal bp. Assessment & Plan (04/13/2018 3:45 PM CDT): Start lisinopril hct 10/12.5 and recheck bmp and Here in 4-6 wks and adjsut. . ekg nl with Rate 62 and axis 30Hypertension, Medical treament revolves around weight control, salt management, and meds when necessary. long as weight loss is necessary and you are able to drop weight we can cont to monitor the blood pressure and not add meds. Once the weight is not changing then it becomes nesessary to add meds to be able to reach the goal bp. Other pulmonary embolism wit hout acute cor pulmonale 01/11/2018 04/13/2018 Assessment & Plan (01/11/2018 11:19 AM CDT): Prior ct with pe. 6month out post surg pe and prior cvt.s with long trips. Given high risk sistuations that lead to closts for now wi l stop. If re occurs argue to stay on and liz if not at risk for. In future any surg doing neds to be well vetted with surgeon and likely worth a conversation with us prior to surg. For post op coverage. Bilateral carotid artery stenosis 01/11/2018 08/24/2018 Assessment & Plan (01/11/2018 11:20 AM CDT): Had stents and nnow treated to keep stable. Moderate protein-calorie malnutrition 09/06/2017 01/11/2018 Assessment & Plan (09/06/2017 3:12 PM PUBLIC RELATIONS MANAGER): albulmin low and will heal better if get protien jakob. Discussed protein supplements Abnormal weight loss 09/06/2017 019 Assessment & Plan (09/06/2017 3:20 PM PUBLIC RELATIONS MANAGER): Wt loss without [place]. Trouble getting to sleep. Poor appetite. Trial remeron 15 at Bedtime . Re eval in a moth Dry skin dermatitis 08/25/2017 01/12/20 18 Assessment & Plan (08/25/2017 2:37 PM PUBLIC RELATIONS MANAGER): Thyroid meds on and not changed and good in the Past. Go up to 3-4 Fish oil a day. stopt he hot water . Medrol pack. triamacinaoone and eucerin cream together o skin 2-3 times a day. Check thuyroid if needed Other fatigue 07/29/2017 01/11/2018 Assessment & Plan (07/29/2017 4:54 PM PUBLIC RELATIONS MANAGER): Fatigue is likely multifactorial. He recently had a knee replacement and developed a pulmonary embolism postoperatively. I recommend we obtain postoperative CBC to evaluate for anemia. Will also check a CMP noting recent medication adjustments. He has a history of hypothyroidism and has been on his current dose for many years. I recommended we check a TSH and free T4 as well. Further direction pending these results. He will return for close follow-up next week as scheduled. He will contact me in the interim with absolutely any change in, worsening, or non improvement. Cough 07/29/2017 01/11/2018 Assessment & Plan (07/29/2017 4:51 PM PUBLIC RELATIONS MANAGER): No signs or symptoms of secondary infection present on exam. I recommend Tessalon Perles p.r.n. cough and conservative measures: Humidification, fluids, and rest . Patient may take Tylenol as needed for fever, chills, and/or body aches. We discussed symptoms of, duration of, and treatment of viral illness. Symptom should run their course within 5-7 days. Patient has been encouraged to contact the office for follow-up with any change in, worsening, or non improvement in his condition. He will return for his routine visit as scheduled next week which will be the perfect time to reassess. Pulmonary embolus 06/29/2017 05/21/2024 Intertrigo 03/02/2017 01/11/2018 Assessment & Plan (03/02/2017 10:09 AM CDT): The skin for now cleared. Work to keep dry. Dial wash of the area. Stop c ream for now and can re stat. Until sweating time of yr gone will likely reoccur Bronchitis 07/22/2014 01/11/2018 Overview (11/27/2016): Bronchitis Acute cerebrovascular insufficiency 01/06/2014 01/11/2018 Overview (11/26/2016): AC CEREBROVASC INSUF NOS Immunizations Immunization Administration Dates Next Due Hep A, Adult 04/28/1996 Hep B Vaccine 07/01/1996,05/27/1996,04/28/1996 IPV 05/27/1996 Influenza, Quadrivalent, Hig h Dose, Preservative Free, Intrr 06/22/2023,05/06/2023,04/29/2022,06/03,04/25/2020,05/22/2019,05/18/2018 ,05/31/2017,07/01/2016,06/18/2015,11/2013,05/18/2013 Influenza, Split 05/06/2010 Influenza, Trivalent, High D ose, Split, Preservative Free, Intramuscular 05/17/2024,05/22/2019,05/18/2018,05/31,07/01/2016,06/18/2015,04/26/2014 ,05/18/2013 Influenza, Trivalent, IM (MDV) 05/23/2012,2008,06/12/2008 Influenza, Unspecified 06/01/2022(Deferr ed: Patient Refused),05/23/2022,05/06/2021(Deferre d: Patient Refused),04/15/2021(Deferred: Patient Refused),09/22/2019(Deferred: Patient Refused),05/11/2019,05/19/2018, 017,05/06/2010 Pfizer SARS-CoV-2 Monovalent Vaccination (12+ Yrs) PURPLE 11/05/2020,10/15/2020 Pneumococcal Conjugate PCV 13 06/18/2015 Pneumococcal Conjugate Pcv20 02/02/2022 Pneumococcal Polysaccharide PPV23 06/24/2010 RSV Vaccine, Pref, Recombina nt, Subunit, Adjuvanted, PF, IM (Arexvy) 06/22/2023 Td, adsorbed 06/24/2010,03/15/1996 Tdap 04/26/2020 ZOSTER LIVE 08/17/2018,05/18/2018 ZOSTER Recombinant 08/17/2018,05/18/2018 Zoster, unspecified 05/25/2011 Social History Tobacco Use Types Packs/Day Years Used Date Smoking Tobacco: Former Smokeless Tobacco: Former Alcohol Use Standard Drinks/Week Comments No 0 (1 standard drink = 0.6 oz pur e alcohol) AUDIT-C Answer Date Recorded Q1: How often do you have a drink containing alcohol? Never 05/06/2023 Q2: How many drinks containi ng alcohol do you have on a typical day when you are drinking? Patient does not drink Q3: How often do you have si x or more drinks on one occasion? Never 05/06/2023 PHQ-2 Answer Date Recorded PHQ-2 Total Score (If total score is 3 or more points, staff should administer the PHQ-9) 0 12/26/2024 Sex and Gender Information Value Date Recorded Sex Assigned at Not on file Legal Sex Male 11:51 PM PUBLIC RELATIONS MANAGER Gender Identity Male 03/24/2022 12:45 PM CDT Sexual Orientation Straight 03/24/2022 12 :45 PM CDT Last Filed Vital Signs Vital Sign Reading Time Taken Comments Blood Pressure 138/72 12/29/2024 10:10 AM CDT Pulse 79 12/29/2024 10:10 AM CDT Temperature 36.4 C (97.5 F) 12/26/2024 1:21 PM CDT Respiratory Rate 18 12/26/2024 1:21 PM CDT Oxygen Saturation 94% 12/29/2024 10:10 AM CDT Inhaled Oxygen Concentration - - Weight 88.5 kg (195 lb) 12/29/2024 10:10 AM CDT Height 180.3 cm (5' 11) 12/29/2024 10:10 AM CDT Body Mass Index 27.2 12/29/2024 10:10 AM CDT Plan of Treatment Not on file Procedures Procedure Name Priority Date/Time Associated Diagnosis Comments DEVICE CHECK - REMOTE Routine 01/02/2025 11:58 AM CDT NICM (nonischemic cardiomyopathy) (HCC) Syncope and collapse NSVT (nonsustained ventricular tachycardia) (HCC) XR SPINE LUMBAR COMPLETE 4 OR MORE VIEWS Schedule Routine, Read Routine (OP Routine) 12/27/2024 2:22 PM CDT Acute bilateral low back pain without sciatica PSA SCREEN Routine 09/02/2023 2:05 PM PUBLIC RELATIONS MANAGER Prostate cancer screening HM COLONOSCOPY Routine 08/01/2018 from Last 3 Months or Most Recently Relevant to Health Maintenance Results * DEVICE CHECK - REMOTE (01/02/2025 11:58 AM CDT) Anatomical Region Laterality Modality Other Narrative 01/22/2025 6:51 AM CDT [employer]m Loop Recorder. Dx; Recurrent Syncope. DOI 01/25/2023-Luke. [employer] remote monitoring. Routine ILR remote. Normal device function. Battery function-Ok. Presenting rhythm-VS, regular 60 bpm. Medications; Plavix, ASA 81mg, Lipitor. Counters since last remote f/u on 11/20/2024. --0 Tachy (total: ) --1 Ilya (total: 192) egm SB w/under sensed PVC's. --0 Pause (total: 3) --0 Symptom (total: ) --0 AF (total: ) [id number]. See scanned report. [employer] remote f/u 02/12/2025. Carmita Luther, RN us Shan Butler MD [facility] PROC EDURES Final Result * XR Spine Lumbar Complete 4 Or More (12/27/2024 2:22 PM CDT) Anatomical Region Laterality Modality Spine N/A Computed Radiogr aphy 12/31/2024 6:37 AM CDT Narrative 12/31/2024 6:39 AM CDT EXAM DESCRIPTION: XR SPINE LUMBAR 4 OR MORE VIEWS REASON FOR STUDY: fall 3 weeks ago, now with persistent low back pain. No bony tenderness. Fell backward going upstairs 3 weeks ago low back pain since, herniated disc surgery 1978 FINDINGS: 5 views of the lumbar spine are submitted for interpretation. No prior examination is available for comparison. Mild retrolisthesis at L3-L4. Mild age-indeterminate superior endplate L1 compression fracture is present. Severe L5-S1 degenerative disc disease is present. Mild degenerative disc disease at the remaining levels. Diffuse idiopathic skeletal hyperostosis is present. Whaf-yj-zjcyujhz multilevel facet osteoarthritis. Probable right renal stone. The aorta is atherosclerotic. IMPRESSION: Age-indeterminate mild superior endplate L1 compression fracture. This can be further evaluated for MRI to evaluate for acuity. 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 THIS IS AN ELECTRONICALLY VERIFIED FINAL REPORT 12/31/2024 6:39 AM - Electronically signed by Stanton Gomez M.D. TH: TH Report ID: [id number] Reading Location: [id number] Procedure Note Stanton Gomez MD - 12/31/2024 EXAM DESCRIPTION: XR SPINE LUMBAR 4 OR MORE VIEWS REASON FOR STUDY: fall 3 weeks ago, now with persistent low back pain. Nobony tenderness. Fell backward going upstairs 3 weeks ago low back pain since, herniateddisc surgery 1978 FINDINGS: 5 views of the lumbar spine are submitted for interpretation. No prior examination is available for comparison. Mild retrolisthesis at L3-L4. Mild age-indeterminate superior endplate L1 compression fracture is present. Severe L5-S1 degenerative disc diseaseis present. Mild degenerative disc disease at the remaining levels. Diffuse idiopathic skeletal hyperostosis is present. Pxis-[id number]-[id number] multilevel facet osteoarthritis. Probable right renal stone. The aorta is atherosclerotic. IMPRESSION: Age-indeterminate mild superior endplate L1 compression fracture. Thiscan be further evaluated for MRI to evaluate for acuity. 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 THIS IS AN ELECTRONICALLY VERIFIED FINAL REPORT 12/31/2024 6:39 AM - Electronically signed by Stanton Gomez M.D. TH: TH Report ID: [id number] Reading Location: [place] [address] Shahnaz An SKI GUIDE IMG XR PROCEDURES Final Res ult * PSA screen (09/02/2023 2:05 PM PUBLIC RELATIONS MANAGER) PSA-Total 0.45 <=6.20 ng/mL AMINTA REYES) Comment: Interpretive Data AGE SEX REFERENCE INTERVAL 0 minutes-150 years Female None 0 minutes-49 years Male None 50-59 years Male 0-3.90 60-69 years Male 0-5.40 70-79 years Male 0-6.20 80-150 years Male 0-6.20 The Vishal PSA Total assay procedure was used. Results from different manufacturers or methods may not be comparable. Serial testing should be performed using the same method. Current interpretive data last revised 21. Testing performed by: [facility], [id number] [place] [address], [place]., [address] Blood 09/02/2023 2:05 PM PUBLIC RELATIONS MANAGER 09/02/2023 5:18 PM PUBLIC RELATIONS MANAGER Hortensia Virgen NP LAB BLOOD ORDERABLES Final Result AMINTA REYES [address] [facility] Department [place] [address] * COLONOSCOPY (08/01/2018) Colonoscopy Unknown us Historical Provider HEALTH MAINTENANCE Final Result from Last 3 Months or Most Recently Relevant to Health Maintenance Insurance [facility]IC[facility] Address: [address] [address] [place] [address] MEDICARE [facility] [place] [address] [place] [address] [facility]IC[facility] Address: [address] [address] [place] [address] Care Teams Gas Welding Equipment Mechanic Relationship Specialty Start Date End Date Nathaniel Corrales MD [address] [place] [address] PCP - General Family Medicine 05/12/22
--- OUTSIDE RECORDS SUMMARY | 2025-02-24 13:17 | XMS_ITS | Encounter Summary ---
Author Organization [facility] Address [address] [place] [address] Phone Care Team Providers Care Director Of Dance Name Role Phone Werner Sepulveda MD Primary Care Provi jasvir Arvind Zhou Primary Care Provider Werner Sepulveda MD Primary Care Provi jasvir Nathaniel Corrales MD Primary Care Provider [phone] Encounter Details Date Type Department Care Team (Late st Contact Info) Description 07/29/2017 Orders Only [facility] ProviderSusan MD [address] [place] [address] Social History Tobacco Use Types Packs/Day Years Used Date Smoking Tobacco: Former Smokeless Tobacco: Former Alcohol Use Standard Drinks/Week Comments Yes 0 (1 standard drink = 0.6 oz pur e alcohol) Sex and Gender Information Value Date Recorded Sex Assigned at Not on file Legal Sex Male 11:51 PM CARDIAC CATHETERIZATION TECHNICIAN Gender Identity Male 03/24/2022 12:45 PM CDT Sexual Orientation Straight 03/24/2022 12 :45 PM CDT documented as of this encounter Plan of Treatment Not on file documented as of this encounter Procedures Procedure Name Priority Date/Time Associated Diagnosis Comments DISCHARGE LABORATORY CUMULATIVE REPORT 07/29/2017 12:00 AM CARDIAC CATHETERIZATION TECHNICIAN documented in this encounter Results * DISCHARGE LABORATORY CUMULATIVE REPORT (07/29/2017 12:00 AM CARDIAC CATHETERIZATION TECHNICIAN) Narrative 07/29/2017 12:00 AM CARDIAC CATHETERIZATION TECHNICIAN Ordered by an unspecified provider. us Historical Provider LAB BLOOD ORDERABLES Brie l Result documented in this encounter Visit Diagnoses Not on filedocumented in this encounter Additional Health Concerns Infection Onset Date Last Indicated Resolved Time COVID: Suspected 07/28/2023 07/28/2023 07/28/2023 12:08 PM CARDIAC CATHETERIZATION TECHNICIAN documented as of this encounter Care Teams Director Of Dance Relationship Specialty Start Date End Date Werner Sepulveda MD PCP - General 11/20/16 09/08/21 Arvind Zhou PA [address] [facility] [place] [address] PCP - General Internal Medicine 09/09/21 03/22/22 Werner Sepulveda MD [address] [facility] [place] [address] PCP - General Internal Medicine 03/23/22 05/11/22 Nathaniel Corrales MD [address] [place] [address] PCP - General Family Medicine 05/12/22 documented as of this encounter
--- OUTSIDE RECORDS SUMMARY | 2025-02-24 13:17 | XMS_ITS | Clinical Summary ---
Author Organization [facility] Address [address] [facility], [address] [address] Phone Care Team Providers Care Library Services Dean Name Role Phone Werner Sepulveda MD Primary Care Provider Unavaila ble Allergies Active Allergy Reactions Criticality Noted Date Comments Atorvastatin Rash High 06/21/2017 Medications lisinopril-hydr oCHLOROthiazide (PRINZIDE, ZESTORETIC) 20-12.5 MG Tablet Take 1 Tab by mouth daily. Active levothyroxine (SYNTHROID) 50 MCG Tablet Take 50 mcg by mouth daily. Active rosuvastatin (CRESTOR) 40 MG Tablet Take 40 mg by mouth daily. Active Glucosamine-Cho ndroit-Vit C-Mn (GLUCOSAMINE CHONDR 1500 COMPLX PO) Take 1 Tab by mouth 2 times daily. Active Cyanocobalamin ([employer]S VITAMIN B12) 2000 MCG Tablet Take 1 Tab by mouth daily. Active Multiple Vitamins-Minera ls (MULTIVITAMIN ADULT PO) Take 1 Tab by mouth daily. Active Ascorbic Acid (VITAMIN C) 1000 MG Tablet Take 1 Tab by mouth daily. Active Ergocalciferol (VITAMIN D2) 2000 units Tablet Take 1 Tab by mouth daily. Active potassium chloride (MICRO-K) 10 MEQ Capsule CR Take 10 mEq by mouth daily. Active fenofibrate (TRICOR) 145 MG Tablet Take 145 mg by mouth daily. Active [place]-3 Fatty Acids (EQL OMEGA 3 FISH OIL) 1400 MG Capsule Take 1 Cap by mouth daily. Active famotidine (PEPCID) 40 MG Tablet Take 40 mg by mouth every evening. Active HYDROcodone-jesus taminophen (NORCO) 5-325 MG Tablet Take 1 Tab by mouth every 6 hours as needed for Pain (moderate to severe). Active warfarin (COUMADIN) 4 MG Tablet Take 4 mg by mouth daily. Active traMADol (ULTRAM) 50 MG Tablet Take 50 mg by mouth every 6 hours as needed for Pain (moderate). 7 Active Aspirin 81 MG Tablet Take 81 mg by mouth daily. Active triamcinolone (KENALOG) 0.1 % CreamIndication s:Atopic Dermatitis Apply 2 times daily. Application Site:right leg (Description and Location) apply to right leg Active Family History Medical History Relation Name Comments Cancer Mother leukemia Heart Attack Mother Relation Name Status Comments Father Mother Social History Tobacco Use Types Packs/Day Years Used Date Smoking Tobacco: Former Pipe Smokeless Tobacco: Never Comments:2-3 pipes per day-q uit 2016 Alcohol Use Standard Drinks/Week Comments Yes 0 (1 standard drink = 0.6 oz pur e alcohol) socail Sex and Gender Information Value Date Recorded Sex Assigned at Not on file Legal Sex Male 7:33 PM CDT Gender Identity Not on file Sexual Orientation Not on file Last Filed Vital Signs Vital Sign Reading Time Taken Comments Blood Pressure 131/62 08/01/2018 12:07 PM HELICOPTER DISPATCHER Pulse 56 08/01/2018 12:07 PM HELICOPTER DISPATCHER Temperature 36 C (96.8 F) 08/01/2018 12:07 PM HELICOPTER DISPATCHER Respiratory Rate 15 08/01/2018 12:07 PM HELICOPTER DISPATCHER Oxygen Saturation 99% 08/01/2018 12:07 PM HELICOPTER DISPATCHER Inhaled Oxygen Concentration - - Weight 86.2 kg (190 lb) 07/12/2018 11:00 AM HELICOPTER DISPATCHER Height 180.3 cm (5' 11) 07/12/2018 11:00 AM HELICOPTER DISPATCHER Body Mass Index 26.5 07/12/2018 11:00 AM HELICOPTER DISPATCHER Plan of Treatment Health Maintenance Due Date Last Done Comments Hepatitis C Virus (HCV) Screening 1940 TdaP Immunization 1940 Pneumococcal Immunization (5 0+ years) (1 of 1 - PCV) 1989 Zoster Immunization (1 of 2) 1989 Respiratory Syncytial Virus (RSV) Immunization (Adult) (1 - 1-dose 75+ series) 2014 SARS-COV-2 Immunization (1 - 2023- season) 2024 Influenza Immunization (Seas on Ended) 2025 Hepatitis B Immunization Aged Out No longer eligible based on patient's age to complete this topic Human Papillomavirus (HPV) Immunization Aged Out No longer eligible b ased on patient's age to complete this topic Meningococcal Immunization (ACWY) Aged Out No longer eligible based on patient's age to complete this topic Rotavirus Immunization Aged Out No lo nger eligible based on patient's age to complete this [place] [address] MEDICARE Advance Directives * Full Code (Latest Code Status on File) Date Activated Date Inactivated Comments 06/21/2017 7:18 AM 08/01/2018 9:53 AM Care Teams Library Services Dean Relationship Specialty Start Date End Date Werner Sepulveda MD [address] [facility] [address] [place] [address] [place] [id number] PCP - General Internal Medicine 06/15/17
--- OUTSIDE RECORDS SUMMARY | 2025-02-24 13:17 | XMS_ITS | Encounter Summary ---
Author Organization [facility] Address [address] [place] [address] Care Team Providers Care Brewery Technician Name Role Phone Nathaniel Corrales MD Primary Care Provider [phone] Encounter Details Date Type Department Care Team (Late st Contact Info) Description 01/02/2025 Results Follow-Up Family Physicians [facility] [address] [facility] [place] [address] Shahnaz An, GOPAL [address] [place] [address] XR Spine Lumbar Complete 4 Or More Social History Tobacco Use Types Packs/Day Years [...] on file Legal Sex Male 11:51 PM SYSTEMS SUPPORT ENGINEER Gender Identity Male 03/24/2022 12:45 PM CDT Sexual Orientation Straight 03/24/2022 12 :45 PM CDT documented as of this encounter Plan of Treatment Not on file documented as of this encounter Visit Diagnoses Not on filedocumented in this encounter Care Teams Brewery Technician Relationship Specialty Start Date End Date Nathaniel Corrales MD [address] [place] [address] PCP - General Family Medicine 05/12/22 documented as of this encounter
--- OUTSIDE RECORDS SUMMARY | 2025-02-24 13:17 | XMS_ITS | Encounter Summary ---
Author Organization [facility] Address [address] [place] [address] Phone Care Team Providers Care Concrete Stone Fabricating Supervisor Name Role Phone Werner Sepulveda MD Primary Care Provi jasvir Arvind Zhou Primary Care Provider Werner Sepulveda MD Primary Care Provi jasvir Nathaniel Corrales MD Primary Care Provider [phone] Encounter Details Date Type Department Care Team (Late st Contact Info) Description 01/18/2018 Orders Only [facility] ProviderSusan MD [address] [place] [address] Social History Tobacco Use Types Packs/Day Years Used Date Smoking Tobacco: Former Smokeless Tobacco: Former Alcohol Use Standard Drinks/Week Comments Yes 0 (1 standard drink = 0.6 oz pur e alcohol) Sex and Gender Information Value Date Recorded Sex Assigned at Not on file Legal Sex Male 11:51 PM PRICE CHANGER Gender Identity Male 03/24/2022 12:45 PM CDT Sexual Orientation Straight 03/24/2022 12 :45 PM CDT documented as of this encounter Plan of Treatment Not on file documented as of this encounter Procedures Procedure Name Priority Date/Time Associated Diagnosis Comments DISCHARGE LABORATORY CUMULATIVE REPORT 01/18/2018 12:00 AM CDT documented in this encounter Results * DISCHARGE LABORATORY CUMULATIVE REPORT (01/18/2018 12:00 AM CDT) Narrative 01/18/2018 12:00 AM CDT Ordered by an unspecified provider. us Historical Provider LAB BLOOD ORDERABLES Brie l Result documented in this encounter Visit Diagnoses Not on filedocumented in this encounter Additional Health Concerns Infection Onset Date Last Indicated Resolved Time COVID: Suspected 07/28/2023 07/28/2023 07/28/2023 12:08 PM PRICE CHANGER documented as of this encounter Care Teams Concrete Stone Fabricating Supervisor Relationship Specialty Start Date End Date Werner Sepulveda MD PCP - General 11/20/16 09/08/21 Arvind Zhou PA [address] [place] [address] [place] [address] PCP - General Internal Medicine 09/09/21 03/22/22 Werner Sepulveda MD [address] [facility] [address] PCP - General Internal Medicine 03/23/22 05/11/22 Nathaniel Corrales MD [address] [place] [address] PCP - General Family Medicine 05/12/22 documented as of this encounter
--- OUTSIDE RECORDS SUMMARY | 2025-02-24 13:17 | XMS_ITS | Clinical Summary ---
Author Organization [facility] Address [address] [place] [id number] Care Team Providers Care Tray Service Worker Name Role Phone Nathaniel Corrales MD Primary Care Provider [phone] Allergies Active Allergy Reactions Criticality Noted Date [...] 1 tablet (75 mcg total) by mouth windows vmware administrator before breakfast 90 tablet 1 12/26/19 25 [...] implantable loop record er 01/25/2023 Overview (01/25/2023): Dynamix.tv Biomonitor IIIm Loop Recorder. Dx; Recurrent Syncope. DOI 01/25/2023- [employer]comronik remote monitoring. Syncope and collapse 01/07/2023 Mild [...] stable Assessment & Plan (09/09/2021 10:42 AM MANAGER CREDIT): Work to keep wt stable Assessment & Plan (05/06/2021 9:26 AM CDT): Keep wtr stable Assessment & Plan (04/15/2021 11:57 AM CDT): Work to keep stable Or drop a few Bug bite 03/11/2021 Neoplasm of uncertain behavior of skin Small vessel disease 12/24/2020 Assessment & Plan (09/09/2021 10:46 AM MANAGER CREDIT): On ct and asa and tight risk contorll Assessment & Plan (05/06/2021 9:24 AM CDT): Tight risk contorll Assessment & Plan (04/15/2021 11:47 AM CDT): This appears likely the cause of hte mci and push on risk controll to try to stop the [id number] and reach 60 or les on ldl [...] 81. Assessment & Plan (08/26/2020 2:50 PM MANAGER CREDIT): psa on reutrn Assessment & Plan (05/22/2019 [...] diet Assessment & Plan (08/26/2020 2:50 PM MANAGER CREDIT): Check onretur To confirm corrections sontm Assessment & Plan (08/24/2018 11:33 AM MANAGER CREDIT): Nl blod cnts and nl iron Assessment [...] above. COntinue to look for records from [facility] with stent placement. Assessment & Plan (09/09/2021 10:41 AM MANAGER CREDIT): Asa and tight risk controll and rescan every coupld lyrs Assessment & Plan (04/15/2021 11:34 AM CDT): chreonic and check in evrey 1-2 yrs Tight risk contorl and asa Assessment & Plan (08/26/2020 2:45 PM MANAGER CREDIT): Post op stents and risk contorll With tight ldl Assessment & Plan (05/22/2019 10:33 AM CDT): Will forward scans on. fornow the dyd studies would be expected to show less obstructino thenen sono and would not r epeat Assessment & Plan (05/02/2019 2:41 PM CDT): Hx of endometrectomy 2002 w/o any prior scans. Reordering carotid duplex for maintenance given re-ocurring syncopal episodes (even though not as likely to trigger). Cont statin, ASA as prior taken. Assessment & Plan (08/24/2018 11:34 AM MANAGER CREDIT): Work to tighten risk and stay on [...] kidneys. Assessment & Plan (09/09/2021 10:44 AM MANAGER CREDIT): yr'ly 24 hr ruine cr cl an [...] kidneys. Assessment & Plan (08/24/2018 11:35 AM MANAGER CREDIT): Stable screenigns adbn yr'ly 24 hr urine. [...] surgery Assessment & Plan (07/29/2017 4:56 PM MANAGER CREDIT): Patient will continue on chronic anticoagulation with [...] tight Assessment & Plan (09/09/2021 10:46 AM MANAGER CREDIT): a1c check Assessment & Plan (05/06/2021 9:24 AM CDT): Check on reutnr Assessment & Plan (04/15/2021 11:41 AM CDT): a1c at 6.1 and 6.5 niddm . Assessment & Plan (12/24/2020 9:27 AM CDT): a1c at 6.2 and 6.5 niddm diet Assessment & Plan (08/26/2020 2:49 PM MANAGER CREDIT): A`1c pre diabetic and stable at 6.2 Assessment & Plan (02/07/2019 10:22 AM CDT): Check a1c on return Assessment & Plan (08/24/2018 11:32 AM MANAGER CREDIT): a1c at 5.9 and 5.6 nl. Assessment & Plan (01/11/2018 11:10 AM CDT): checkm a1c on return Assessment & Plan (09/06/2017 3:15 PM MANAGER CREDIT): Fasting 116 and elizabeth check a1c on [...] limited. Assessment & Plan (09/09/2021 10:42 AM MANAGER CREDIT): ldl sropped to 52 and tdrigs up [...] limited. Assessment & Plan (08/26/2020 2:49 PM MANAGER CREDIT): ldl moises pped 30 to 75and good [...] limited. Assessment & Plan (08/24/2018 11:31 AM MANAGER CREDIT): ldl at 1`31 but statin skin tox. Taking 1 q week and no issues. And wiill go back on and stat at 1/2 3 days a week and thjonh afer 2 wks go to 5 days [...] limited. Assessment & Plan (09/06/2017 3:14 PM MANAGER CREDIT): ldl at 73 and great. Low enough [...] HYPERTENSION Assessment & Plan (09/09/2021 10:45 AM MANAGER CREDIT): bp good and kidney stableHypertension, Medical treament [...] kidneys. Assessment & Plan (08/26/2020 2:47 PM MANAGER CREDIT): The bp good and screening cr nl [...] kidneys. Assessment & Plan (09/22/2019 9:52 AM MANAGER CREDIT): Recommend DASH diet, heart healthy lifestyle, exercise. [...] bp. Assessment & Plan (09/06/2017 3:13 PM MANAGER CREDIT): bp good and no changes. Cont to watch, no diet linmits Assessment & Plan (07/29/2017 4:53 PM MANAGER CREDIT): Patient's blood pressure has been hypotensive outside [...] response. Assessment & Plan (09/09/2021 10:45 AM MANAGER CREDIT): Stay on and check tsh on return [...] chagds Assessment & Plan (08/26/2020 2:48 PM MANAGER CREDIT): Check on reoutrn Assessment & Plan (01/11/2018 11:08 AM CDT): Cont omeds and check yr'ly if good Assessment & Plan (09/06/2017 3:15 PM MANAGER CREDIT): Cont thyroid meds and will check on return Osteoarthritis of knee 01/06/2014 Overview (11/28/2016): DJD (degenerative joint disease) of knee Assessment & Plan (07/29/2017 4:58 PM MANAGER CREDIT): He is now status post knee replacement. [...] asa Assessment & Plan (09/09/2021 10:45 AM MANAGER CREDIT): On asa and stable and not on formal anticaoag Assessment & Plan (04/15/2021 11:55 AM CDT): Asa felt enough for now Assessment & Plan (08/26/2020 2:49 PM MANAGER CREDIT): On asa and no breakthru Assessment & Plan (08/24/2018 11:33 AM MANAGER CREDIT): Sty on asa daily Assessment & Plan (04/13/2018 3:21 PM CDT): Cont Anticoag. And monitor Essential hypertension 04/13/201811/02 Assessment & Plan (08/24/2018 11:32 AM MANAGER CREDIT): bp high at home and great hewe. Bring in [id number] and cross check and confirm match and [...] 01/11/2018 Assessment & Plan (09/06/2017 3:12 PM MANAGER CREDIT): albulmin low and will heal better if get protien jakob. Discussed protein supplements Abnormal weight loss 09/06/2017 019 Assessment & Plan (09/06/2017 3:20 PM MANAGER CREDIT): Wt loss without Dcz9yjk. Trouble getting to sleep. Poor appetite. Trial remeron 15 at Bedtime . Re eval in a moth Dry skin dermatitis 08/25/2017 01/12/20 18 Assessment & Plan (08/25/2017 2:37 PM MANAGER CREDIT): Thyroid meds on and not changed and good in the Past. Go up to 3-4 Fish oil a day. stopt he hot water . Medrol pack. triamacinaoone and eucerin cream together o skin 2-3 times a day. Check thuyroid if needed Other fatigue 07/29/2017 01/11/2018 Assessment & Plan (07/29/2017 4:54 PM MANAGER CREDIT): Fatigue is likely multifactorial. He recently had [...] 01/11/2018 Assessment & Plan (07/29/2017 4:51 PM MANAGER CREDIT): No signs or symptoms of secondary infection present on exam. I recommend Gabriela Gold p.r.n. cough and conservative measures: Humidification, fluids, [...] 01/11/2018 Overview (11/26/2016): AC CEREBROVASC INSUF NOS Encounters Date Type Department Care Team Description 02/20/2025 Telephone [facility] [address] [phone] Nathaniel Corrales MD Med Refill ( meloxicam (MOBIC) 7.5 mg tablet/ tiZANidine (ZANAFLEX) 2 mg tablet) 02/20/2025 Orders Only [facility] [address] [place] [phone] Shna Butler MD Status post placement of implantable loop recorder (Primary Dx); Syncope, unspecified syncope type 02/12/2025 8:00 AM CDT Ancillary Procedure [facility] [address] [place] [phone] NICM (nonischemic cardiomyopathy) (HCC); Syncope and collapse; NSVT (nonsustained ventricular tachycardia) (HCC) 01/02/2025 Results Follow-Up [facility] [address] [phone] Shahnaz An NP XR Spine Lumbar Complete 4 Or More 01/01/2025 8:00 AM CDT Ancillary Procedure [facility] [address] [place], [place] [address], [place] [address] Status post placement of implantable loop recorder (Primary Dx); NICM (nonischemic cardiomyopathy) ([facility]); Syncope and collapse; NSVT (nonsustained ventricular tachycardia) ([facility]) 12/29/2024 10:00 AM CDT Office Visit [facility] at [address] [place] [address] Shan Butler MD Carotid sinus syncope (Primary Dx); Status post placement of implantable loop recorder 12/27/2024 2:00 PM CDT - 12/27/2024 11:59 PM CDT Hospital Encounter [facility] [address] [place] [address] Acute bilateral low back pain without sciatica Discharge Disposition: Discharge to home or self care 12/26/2024 1:30 PM CDT Office Visit [facility] [address] [phone] Shahnza An NP Acute bilateral low back pain without sciatica (Primary Dx); BMI 26.0-26.9,adult 12/19/2024 Telephone [facility] [address] [phone] Nathaniel Corrales MD Med Refill; Triamcinolon 0.1% from Last 3 Months Immunizations Immunization Administration Dates Next Due Hep [...] 08/17/2018,05/18/2018 ZOSTER Recombinant 08/17/2018,05/18/2018 Zoster, unspecified 05/25/2011 Surgical History Surgery Date Site/Laterality Comments LUMBAR SPINE SURGERY 1988 Lumbar spine surgery OTHER SURGICAL HISTORY cataract surgery --10 OTHER SURGICAL HISTORY Removal of elbow bursa OTHER SURGICAL HISTORY Removal of scalp lesion BACK SURGERY 1988 Back surgery CATARACT EXTRACTION 2009 Left Cataract extraction OTHER SURGICAL HISTORY 2 carotid stents Medical History Medical History Date Comments Hx Other Medical carotid Hx Other Medical c diff Hx Other Medical Colonoscopy Hypertension Hypertension Hx Other Medical [address] rosa lepe arotid artery Hypercholesterolemia High choles terol; Comments: SAB 07/22/2014 - Hypertension Hypertension Temporary cerebral vascular dysfunction TIA; Comments: SAB 07/22/2014 - Hx Other Medical right knee surg cindy 09/03/14 Stroke (HCC) Squamous cell cancer of skin of forearm, 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 Status post placement of imp lantable loop recorder Family History Medical History Relation Name Comments Coronary artery disease Brother Dakota nary artery disease, premature; Coronary artery disease Father Dakota nary artery disease; Leukemia Mother Cancer -leukemi a; Relation Name Status Comments Brother Father Mother Social History Tobacco Use Types [...] on file Legal Sex Male 11:51 PM MANAGER CREDIT Gender Identity Male 03/24/2022 12:45 PM CDT Sexual Orientation Straight 03/24/2022 12 :45 PM CDT Obstetrics History Last Filed Vital Signs Vital Sign Reading [...] 12/29/2024 10:10 AM CDT Plan of Treatment Health Maintenance Due Date Last Done Comments Abdominal Aortic Aneurysm (A AA) Screen 2004 Prostate Cancer Screening-PSA 09/02/2024, 12/25/2021, 04/07/2021, Additional history exists Covid-19 Vaccine (2023-09 5 season) 2024 06/02/2024, 02/02/2022, 06/03/2021, Additional history exists Influenza Vaccine (#1) 2025 , 06/22/2023, 05/06/2023, Additional history exists Well Visit 65+ 05/17/2025 05/17/2024, 04/23, 04/15/2021, Additional history exists Depression Screening 12/26/2025 12/26/2024, 05/17/2024, 05/06/2023, Additional history exists Fall Risk Assessment 12/26/2025 12/26/2024, 05/17/2024, 05/06/2023, Additional history exists Colon Cancer Screening-Colonoscopy 08/01/2028 08/01/2018, 12/12/2007 DTaP/Tdap/Td Vaccine (2 - Td or Tdap) 04/26/2030 04/26/2020, 06/24/2010, 03/15/1996 Hepatitis B Screening Completed 07/01/1996 , 05/27/1996, 04/28/1996 Colon Cancer Screening-CT Colonography Discontinued 08/01/2018, 12/12/2007 Colon Cancer Screening-DNA Stool Discontinued 08/01/20 18, 12/12/2007 Colon Cancer Screening-FIT Discontinued 08/01/2018, Colon Cancer Screening-Sigmoidoscopy Discontinued 08/01/2018, 12/12/2007 Zoster Vaccine Completed 08/17/2018, 07/24, 05/18/2018, Additional history exists Pneumococcal vaccine 65+ Completed 022, 06/18/2015, 06/24/2010 Procedures Procedure Name Priority Date/Time Associated Diagnosis Comments DEVICE CHECK - REMOTE Routine 01/02/2025 11:58 AM CDT NICM (nonischemic cardiomyopathy) (HCC) Syncope and collapse NSVT (nonsustained ventricular tachycardia) (HCC) XR SPINE LUMBAR COMPLETE 4 OR MORE VIEWS Schedule Routine, Read Routine (OP Routine) 12/27/2024 2:22 PM CDT Acute bilateral low back pain without sciatica PSA SCREEN Routine 09/02/2023 2:05 PM MANAGER CREDIT Prostate cancer screening HM COLONOSCOPY Routine 08/01/2018 from Last 3 Months or Most Recently Relevant to Health Maintenance Results * DEVICE CHECK - REMOTE (01/02/2025 11:58 AM CDT) Anatomical Region Laterality Modality Other Narrative 01/22/2025 6:51 AM CDT [employer]tv Biomonitor IIIm Loop Recorder. Dx; Recurrent Syncope. [...] scanned report. Biotronik remote f/u 02/12/2025. Carmita Luther RN Shan Butler MD [facility] PROC [...] levels. Diffuse idiopathic skeletal hyperostosis is present. Snds-in-fsywvkej multilevel facet osteoarthritis. Probable right renal stone. The aorta is atherosclerotic. IMPRESSION: Age-indeterminate mild superior endplate L1 compression fracture. This can be further evaluated for MRI to evaluate for acuity. 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 THIS IS AN ELECTRONICALLY VERIFIED FINAL REPORT 12/31/2024 6:39 AM - Electronically signed by Stanton Gomez M.D. TH: TH Report ID: [id number] Reading Location: [id number] Procedure Note Stanton Gomez MD - 12/31/2024 [...] levels. Diffuse idiopathic skeletal hyperostosis is present. Etyn-gi-rjwudfvg multilevel facet osteoarthritis. Probable right renal stone. The aorta is atherosclerotic. IMPRESSION: Age-indeterminate mild superior endplate L1 compression fracture. Thiscan be further evaluated for MRI to evaluate for acuity. 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 THIS IS AN ELECTRONICALLY VERIFIED FINAL REPORT 12/31/2024 6:39 AM - Electronically signed by Stanton Gomez M.D. 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 Testing performed by: [facility], [address] [place] [address]., [id number] Blood 09/02/2023 2:05 PM MANAGER CREDIT 09/02/2023 5:18 PM MANAGER CREDIT Hortensia Virgen RUBBER FLAP TUBER MACHINE OPERATOR LAB BLOOD ORDERABLES Final Result [facility] Department [place] [address] * COLONOSCOPY (08/01/2018) [facility] Colonoscopy Unknown Historical Provider HEALTH MAINTENANCE Final Result from Last 3 Months or Most Recently Relevant to Health Maintenance Insurance [facility] MEDICARE ADVANTAGE MEDICARE [facility] MEDICARE [place] [address] [facility] MEDICARE ADVANTAGE Care Teams Tray Service Worker Relationship Specialty Start Date End Date [place] [address] PCP - General Family Medicine 05/12/22
--- OUTSIDE RECORDS SUMMARY | 2025-02-24 13:17 | XMS_ITS | Clinical Summary ---
Author Organization [facility] Address [address] [place] [address] Care Team Providers Care Front End Specialist Name Role Phone Werner Sepulveda MD Primary Care Provi jasvir Yani Pena RN Unavailable [phone] Arvind Tamayo RN Unavailable Unavailab le Source Comments [facility],non-owned Affiliates and Associated Physician Practices is amultiple site organization consisting of ambulatory clinics and hospital sitesin [place], [place], [place] and [place]. This disclosure is being madepursuant to the Care Everywhere program and may not contain all information available regarding this patient. Last updated 18.[facility] Allergies Active Allergy Reactions Criticality Noted Date Comments Atorvastatin Rash High 08/27/2014 Medications * Be aware that medications may not be up to date on this document. Alwaysverify current medications with the patient. levothyroxine (SYNTHROID) 50 MCG tablet Take 145 mcg by mouth daily before breakfast Active Glucosamine-Cho ndroit-Vit C-Mn ( GLUCOSAMINE-CHO NDROITIN PO) Take by mouth 2 times daily Active vitamin C (ASCORBIC ACID) 1000 MG TABS tablet Take 1,000 mg by mouth once daily. Active multivitamin daily (THERAGRAN) tablet Take 1 Tab by mouth daily with food. Active Fish Oil OIL Use 1,400 mg once daily. Active Cholecalciferol (VITAMIN D-3 PO) 2,000 Units once daily 4 Active Cyanocobalamin (VITAMIN B-12 PO) Take 1,000 mcg by mouth once daily 2 Active lisinopril-hydr oCHLOROthiazide (PRINZIDE; ZESTORETIC) 10-12.5 MG tablet Take 1 tablet by mouth once daily Alternate daily with lisinopril 8 Active triamcinolone acetonide (KENALOG) 0.1 % ointment Apply 1 squirt to affected area 2 times daily Active aspirin EC (ECOTRIN) 81 MG tablet Take 81 mg by mouth once daily Active Active Problems Problem Noted Date Diagnosed Date Neoplasm of uncertain behavior of skin 1 Bug bite 03/11/2021 Small vessel disease 12/24/2020 Overview (03/11/2021): Last Assessment & Plan: Seen on past ct. And plays some role with memory. 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 May next due time and aftr that Lung mass 01/11/2018 Overview (03/11/2021): Last Assessment & Plan: Repeat ct to f.u on prior question of mass or not. Try for 2 qts gatoraid the hr or so [prior to ct and as soon as gets out.bmp prior to ct and creat the 2-3 dasy aft er. 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 And topoical. History of pulmonary embolism 07/29/2017 Overview (03/11/2021): Last Assessment & Plan: Given Prior clots on long trips and [...] Restart coumadin for long trips and surgery Pulmonary embolus 06/29/2017 Primary osteoarthritis of left knee 06/14/2017 IGT (impaired glucose tolerance) 03/02/2017 Overview (03/11/2021): Last Assessment & Plan: a1c at 6.2 and 6.5 niddm diet Status post total right knee replacement 015 Carotid artery stenosis 09/03/2014 TIA (transient ischemic attack) 09/03/2014 Arthritis 09/03/2014 Hyperlipidemia 01/06/2014 Overview (03/11/2021): HYPERLIPIDEMIA NEC/NOS Last Assessment & Plan: ldl [...] And limited. Hypertensive kidney disease 01/06/2014 Overview (03/11/2021): BENIGN HYPERTENSION Last Assessment & Plan: bp [...] can harm the kidneys. Hypothyroidism 01/06/2014 Overview (03/11/2021): HYPOTHYROIDISM NOS Last Assessment & Plan: tsh 2.6 and sst able and no on meds no chagds Immunizations Immunization Administration Dates Next Due INFLUENZA VACCINE, TRIV. (AF LURIA, FLUZONE TRIVALENT; 6MO+) (IIV3) 05/23/2012,05/30/2009,06/12/2008 HEP A VACCINE, ADULT 04/28/1996 HEP B VACCINE, ADULT 3 DOSE 07/01/1996, 6,04/28/1996 INFLUENZA H1D9-68, HISTORIC VACCINE 04/25/2020 INFLUENZA VACCINE 07/23/2021, 9,05/19/2018,2016,05/06/2010 INFLUENZA VACCINE, HIGH-DOSE , QUADR. (FLUZONE HIGH-DOSE QUADRIVALENT; 65Y+), 0.7 ML (HD-IIV4) 05/22/2019,05/18/2018,05/31/2017,2015,06/18/2015,04/26/2014,05/18/2013 INFLUENZA VACCINE, QUADR. (A FLURIA, FLUZONE QUADRIVALENT; 6MO+) (IIV4) 05/06/2010 PNEUMOCOCCAL PPSV23 06/24/2010 POLIO IPV 05/27/1996 Pneumococcal Pcv13 Conj 06/18/2015 TD (AGE 7-ADULT) 06/24/2010,03/15/1996 TDAP (7yrs+) 04/26/2020 Td (Adult), 2 Lf Tetanus Tox oid, Adsorbed, Pf 06/24/2010,03/15/1996 ZOSTER HISTORIC VACCINE 05/25/2011 Zoster Hzv Vacc Recombinant Inj Im 08/17/2018, Family History Medical History Relation Name Comments Asthma Neg Hx CVA Neg Hx Cancer - Breast Neg Hx Cancer - Other Neg Hx Cancer - Skin, Melanoma Neg Hx Cancer - Skin, Non Melanoma Neg Hx Eczema Neg Hx Hemophilia Neg Hx Psoriasis Neg Hx Social History Tobacco Use Types Packs/Day Years Used Date Smoking Tobacco: Former Pipe 0 08/23/1959 - 05/05/2017 Smokeless Tobacco: Never Tobacco Cessation:Counseling Given: Yes Alcohol Use Standard Drinks/Week Comments Yes 1.7 (1 standard drink = 0.6 oz p ure alcohol) rarely Sex and Gender Information Value Date Recorded Sex Assigned at Male 04/26/2024 10:37 AM CDT Legal Sex Male 8:27 AM EVALUATION SPECIALIST Gender Identity Male 04/26/2024 10:37 AM CDT Sexual Orientation Straight 04/26/2024 10 :37 AM CDT Last Filed Vital Signs Vital Sign Reading Time Taken Comments Blood Pressure 120/68 08/31/2019 9:17 AM EVALUATION SPECIALIST Pulse 77 08/31/2019 9:17 AM EVALUATION SPECIALIST Temperature 36.4 C (97.5 F) 07/01/2017 11:29 AM EVALUATION SPECIALIST Respiratory Rate 16 07/01/2017 11:29 AM EVALUATION SPECIALIST Oxygen Saturation 97% 08/31/2019 9:17 AM EVALUATION SPECIALIST Inhaled Oxygen Concentration - - Weight 88.2 kg (194 lb 8 oz) 06/07/2018 10:50 AM CDT Height 180.3 cm (5' 11) 08/31/2019 9:17 AM EVALUATION SPECIALIST Body Mass Index 27.13 06/07/2018 10:50 AM CDT Plan of Treatment Health Maintenance Due Date Last Done Comments HEPATITIS B VACCINE (3 of 3 - 19+ 3-dose series) 10/26/1996 07/01/1996, 05/27/1996, 04/28/1996 Respiratory Syncytial Virus (RSV) Vaccine Pt: or over 60 yrs (1 - 1-dose 75+ series) 2014 COVID-19 VACCINE ( - 2023- season) 2024 11/05/2020, 10/15/2020 DEPRESSION SCREENING 08/23/2024 MEDICARE AWV CALENDAR YEAR 2024 INFLUENZA VACCINE (Season Ended) 2025 07/23/2021, 04/25/2020, 05/22/2019, Additional history exists DTAP/TDAP/TD VACCINES (6 - Td or Tdap) 04/26/2030 04/26/2020, 06/24/2010, 06/24/2010, Additional history exists PNEUMOCOCCAL VACCINE 50+ Completed 06/18/2015, 09/2009 ZOSTER VACCINE Completed 08/17/2018, 04/24, 05/25/2011 HIB VACCINE Aged Out No longer eligi ble based on patient's age to complete this topic HPV VACCINE Aged Out No longer eligi ble based on patient's age to complete this topic MENINGOCOCCAL (Group B) VACCINE SHARED DECISION-MAKING Aged Out No longer eligible based on patient's age to complete this topic MENINGOCOCCAL GROUPS A/C/Y/W VACCINE Aged Out No longer eligible based on patient's age to complete this topic Medical Devices Implanted Type Area Psychiatric Np Device Identifier Shelf Expiration Date Model / Serial / Lot Profix Metaphyseal Tibial Stem Implanted:Qty: 1 on 09/03/2014 by Sukhwinder Whitaker MD at [facility] Right: Knee [employer] 08/23/2022 [id number] / / [id number] Ins Tibial Hi Flex 5-6 X 9mm Implanted:Qty: 1 on 09/03/2014 by Sukhwinder Whitaker MD at [facility] Right: Knee [employer] 03/23/2024 [id number] / / [id number] Size 6 Porous Legion Coated Tibial Base Implanted:Qty: 1 on 09/03/2014 by Sukhwinder Whitaker MD at [facility] Right: Knee [employer] 09/23/2023 [id number] / / [id number] Size 7 Cruciate Retaining Femoral Component Implanted:Qty: 1 on 09/03/2014 by Sukhwinder Whitaker MD at [facility] Right: Knee [employer] 05/23/2022 [id number] / / [id number] 30 Mm Tibial Bone Screw Implanted:Qty: 1 on 09/03/2014 by Sukhwinder Whitaker MD at [facility] Right: Knee [employer] 01/21/2023 [id number] / / [id number] 25mm Tibial Bone Screw Implanted:Qty: 1 on 09/03/2014 by Sukhwinder Whitaker MD at [facility] Right: Knee [employer] 10/22/2023 [id number] / / [id number] 20mm Tibial Bone Screw Implanted:Qty: 1 on 09/03/2014 by Sukhwinder Whitaker MD at [facility] Right: Knee [employer] 10/22/2023 [id number] / / [id number] 20mm Tibial Bone Screw Implanted:Qty: 1 on 09/03/2014 by Sukhwinder Whitaker MD at [facility] Right: Knee [employer] 07/23/2023 [id number] / / [id number] Bill Only Giovanny Tib Uncem Fem Implanted:Qty: 1 on 09/03/2014 by Sukhwinder Whitaker MD at [facility] [employer] BILL ONLY BASIC GIOVANNY EXCLUDES AGC KN SNOR / / Cmpnt Fem Kn Lt 7 Crcte Rtn Legion Lovell Implanted:Qty: 1 on 06/14/2017 by Sukhwinder Whitaker MD at [facility] Left: Knee [employer] 05/16/2027 [id number] / / [id number] Stem Tib 55mm 18mm Prfx Mtphsl Kn Implanted:Qty: 1 on 06/14/2017 by Sukhwinder Whitaker MD at [facility] Left: Knee [employer] 04/23/2027 [id number] / / [id number] Bsplt Tib Legion 6 Kn Lt Lovell Por Implanted:Qty: 1 on 06/14/2017 by Sukhwinder Whitaker MD at [facility] Left: Knee [employer] 12/20/2026 [id number] / / [id number] Ins Tib 5-6 9mm Kn Xlpe Cr Hi Flxn Implanted:Qty: 1 on 06/14/2017 by Sukhwinder Whitaker MD at [facility] Left: Knee [employer] 06/21/2024 [id number] / / [id number] Screw Bsplt 25mm 6.5mm Gns2 Kn Tib Por Implanted:Qty: 1 on 06/14/2017 by Sukhwinder Whitaker MD at [facility] Left: Knee [employer] 04/26/2027 [id number] / / [id number] Screw 6.5mm 25mm Sphr Hip Actb Reflc Implanted:Qty: 1 on 06/14/2017 by Sukhwinder Whitaker MD at [facility] Left: Knee [employer] 11/09/2026 [id number] / / [id number] Screw Bsplt 20mm 6.5mm Gns2 Kn Tib Por Implanted:Qty: 1 on 06/14/2017 by Sukhwinder Whitaker MD at [facility] Left: Knee [employer] 10/05/2026 [id number] / / [id number] Screw Bsplt 25mm 6.5mm Gns2 Kn Tib Por Implanted:Qty: 1 on 06/14/2017 by Sukhwinder Whitaker MD at [facility] Left: Knee [employer] 11/29/2026 [id number] / / [id number] Hayder Basic Giovanny Excludes Agc Kn Implanted:Qty: 1 on 06/14/2017 by Sukhwinder Whitaker MD at [facility] [employer] BILL ONLY BASIC GIOVANNY EXCLUDES AGC KN SNOR / / [place] [address] MEDICARE [facility] [place] [address] [facility] MANAGED MEDICARE ADV Advance Directives Documents on File Type Date Recorded Patient Survey Interviewer Expl anation Adv Directive/Living Will/POA 06/18/2017 4:39 PM Advance Directives and Livin g Will 07/31/2013 12:00 AM * Full Code (Latest Code Status on File) Date Activated Date Inactivated Comments 06/29/2017 8:58 PM 07/01/2017 2:30 PM * Full Code Date Activated Date Inactivated Comments 06/14/2017 11:04 AM 06/17/2017 3:45 PM * Full Code Date Activated Date Inactivated Comments 09/03/2014 11:09 AM 09/07/2014 3:34 PM Care Teams Front End Specialist Relationship Specialty Start Date End Date Werner Sepulveda MD PCP - General Internal Medicine 08/20/14 Yani Pena, RN [employer] Supervisor 09/03/14 Arvind Tamayo RN 06/14/17
--- OUTSIDE RECORDS SUMMARY | 2025-02-24 13:17 | XMS_ITS | Encounter Summary ---
Author Organization [facility] Address [address] [place] [address] Phone Care Team Providers Care Bowling Alley Mechanic Name Role Phone Werner Sepulveda MD Primary Care Provi jasvir Arvind Zhou Primary Care Provider Werner Sepulveda MD Primary Care Provi jasvir Nathaniel Corrales MD Primary Care Provider [phone] Encounter Details Date Type Department Care Team (Late st Contact Info) Description 08/30/2017 Orders Only [facility] ProviderSusan MD [address] [place] [address] Social History Tobacco Use Types Packs/Day Years Used Date Smoking Tobacco: Former Smokeless Tobacco: Former Alcohol Use Standard Drinks/Week Comments Yes 0 (1 standard drink = 0.6 oz pur e alcohol) Sex and Gender Information Value Date Recorded Sex Assigned at Not on file Legal Sex Male 11:51 PM NEEDLEWORKER Gender Identity Male 03/24/2022 12:45 PM CDT Sexual Orientation Straight 03/24/2022 12 :45 PM CDT documented as of this encounter Plan of Treatment Not on file documented as of this encounter Procedures Procedure Name Priority Date/Time Associated Diagnosis Comments DISCHARGE LABORATORY CUMULATIVE REPORT 08/30/2017 12:00 AM NEEDLEWORKER documented in this encounter Results * DISCHARGE LABORATORY CUMULATIVE REPORT (08/30/2017 12:00 AM NEEDLEWORKER) Narrative 08/30/2017 12:00 AM NEEDLEWORKER Ordered by an unspecified provider. us Historical Provider LAB BLOOD ORDERABLES Brie l Result documented in this encounter Visit Diagnoses Not on filedocumented in this encounter Additional Health Concerns Infection Onset Date Last Indicated Resolved Time COVID: Suspected 07/28/2023 07/28/2023 07/28/2023 12:08 PM NEEDLEWORKER documented as of this encounter Care Teams Bowling Alley Mechanic Relationship Specialty Start Date End Date Werner Sepulveda MD PCP - General 11/20/16 09/08/21 Arvind Zhou PA [address] [facility] [place] [address] PCP - General Internal Medicine 09/09/21 03/22/22 Werner Sepulveda MD [address] [facility] [place] [address] PCP - General Internal Medicine 03/23/22 05/11/22 Nathaniel Corrales MD [address] [place] [address] PCP - General Family Medicine 05/12/22 documented as of this encounter
--- OUTSIDE RECORDS SUMMARY | 2025-02-24 13:17 | XMS_ITS | Encounter Summary ---
Author Organization [facility] Address [address] [place] [address] Phone Care Team Providers Care Certified Retinal Angiographer Name Role Phone Werner Sepulveda MD Primary Care Provi jasvir Arvind Zhou Primary Care Provider Werner Sepulveda MD Primary Care Provi jasvir Nathaniel Corrales MD Primary Care Provider [phone] Encounter Details Date Type Department Care Team (Late st Contact Info) Description 12/29/2017 Orders Only [facility] ProviderSusan MD [address] [place] [address] Social History Tobacco Use Types Packs/Day Years Used Date Smoking Tobacco: Former Smokeless Tobacco: Former Alcohol Use Standard Drinks/Week Comments Yes 0 (1 standard drink = 0.6 oz pur e alcohol) Sex and Gender Information Value Date Recorded Sex Assigned at Not on file Legal Sex Male 11:51 PM LYFT DRIVER Gender Identity Male 03/24/2022 12:45 PM CDT Sexual Orientation Straight 03/24/2022 12 :45 PM CDT documented as of this encounter Plan of Treatment Not on file documented as of this encounter Procedures Procedure Name Priority Date/Time Associated Diagnosis Comments DISCHARGE LABORATORY CUMULATIVE REPORT 12/29/2017 12:00 AM CDT documented in this encounter Results * DISCHARGE LABORATORY CUMULATIVE REPORT (12/29/2017 12:00 AM CDT) Narrative 12/29/2017 12:00 AM CDT Ordered by an unspecified provider. us Historical Provider LAB BLOOD ORDERABLES Brie l Result documented in this encounter Visit Diagnoses Not on filedocumented in this encounter Additional Health Concerns Infection Onset Date Last Indicated Resolved Time COVID: Suspected 07/28/2023 07/28/2023 07/28/2023 12:08 PM LYFT DRIVER documented as of this encounter Care Teams Certified Retinal Angiographer Relationship Specialty Start Date End Date Werner Sepulveda MD PCP - General 11/20/16 09/08/21 Arvind Zhou PA [address] [place] [address] [place] [address] PCP - General Internal Medicine 09/09/21 03/22/22 Werner Sepulveda MD [address] [facility] [place] [address] PCP - General Internal Medicine 03/23/22 05/11/22 Nathaniel Corrales MD [address] [place] [address] PCP - General Family Medicine 05/12/22 documented as of this encounter
--- NOTE | 2025-02-24 13:21 | ECG_ITS ---
Test Date: 2025-02-24 13:15:00 Measurements Intervals [place] Rate: 68 P: 20 ME: 215 QRS: 48 QRSD: 95 T: 67 QT: 400 QTc: 427 Interpretive Statements SINUS RHYTHM WITH FIRST DEGREE AV BLOCK No previous ECG available for comparison Electronically Signed On 02-26-2025 22:35:23 CDT by Radha Woods M.D.
--- NOTE | 2025-02-24 13:29 | PC.NURSE ---
O2 has dropped to 88%, then returns to low 90's. 2L O2 reapplied.
[2025-02-24] MEDS: SODIUM CHLORIDE 0.9% IV 1,000 ML 999 ML IV CONT (13:31)
--- OUTSIDE RECORDS SUMMARY | 2025-02-24 13:54 | XMS_ITS | Clinical Summary ---
Author Organization [facility] Address [address] [facility], [address] [address] Phone Care Team Providers Care Drawbridge Operator Name Role Phone Werner Sepulveda MD Primary [...] Take 145 mg by mouth daily. Active [place]-3 Fatty Acids (EQL OMEGA 3 FISH OIL) [...] Comments Blood Pressure 131/62 08/01/2018 12:07 PM INDOOR PLANT TECHNICIAN Pulse 56 08/01/2018 12:07 PM INDOOR PLANT TECHNICIAN Temperature 36 C (96.8 F) 08/01/2018 12:07 PM INDOOR PLANT TECHNICIAN Respiratory Rate 15 08/01/2018 12:07 PM INDOOR PLANT TECHNICIAN Oxygen Saturation 99% 08/01/2018 12:07 PM INDOOR PLANT TECHNICIAN Inhaled Oxygen Concentration - - Weight 86.2 kg (190 lb) 07/12/2018 11:00 AM INDOOR PLANT TECHNICIAN Height 180.3 cm (5' 11) 07/12/2018 11:00 AM INDOOR PLANT TECHNICIAN Body Mass Index 26.5 07/12/2018 11:00 AM INDOOR PLANT TECHNICIAN Plan of Treatment Health Maintenance Due Date [...] to complete this [place] [address] MEDICARE Advance Directives * Full Code (Latest Code Status on File) Date Activated Date Inactivated Comments 06/21/2017 7:18 AM 08/01/2018 9:53 AM Care Teams Drawbridge Operator Relationship Specialty Start Date End Date Werner Sepulveda MD [address] [facility] [facility] [address] [place] [address] [place] [address] PCP - General Internal Medicine 06/15/17
--- OUTSIDE RECORDS SUMMARY | 2025-02-24 13:54 | XMS_ITS | Encounter Summary ---
Author Organization [facility] Address [address] [place] [address] Phone Care Team Providers Care Flooring Machine Operator Name Role Phone Werner Sepulveda MD Primary Care Provi jasvir Arvind Zhou Primary Care Provider Werner Sepulveda MD Primary Care Provi jasvir Nathaniel Corrales MD Primary Care Provider [phone] Encounter Details Date Type Department Care Team (Late st Contact Info) Description 01/18/[address] [facility] ProviderSusan MD [address] [place] [address] Social History Tobacco Use Types Packs/Day Years Used Date Smoking Tobacco: Former Smokeless Tobacco: Former Alcohol Use Standard Drinks/Week Comments Yes 0 (1 standard drink = 0.6 oz pur e alcohol) Sex and Gender Information Value Date Recorded Sex Assigned at Not on file Legal Sex Male 11:51 PM INLETTER Gender Identity Male 03/24/2022 12:45 PM CDT [...] COVID: Suspected 07/28/2023 07/28/2023 07/28/2023 12:08 PM INLETTER documented as of this encounter Care Teams Flooring Machine Operator Relationship Specialty Start Date End Date Werner Sepulveda MD PCP - General 11/20/16 09/08/21 Arvind Zhou PA [address] [place] [address] [place] [address] PCP - General Internal Medicine 09/09/21 03/22/22 Werner Sepulveda MD [address] [facility] [place] [address] PCP - General Internal Medicine 03/23/22 05/11/22 Nathaniel Corrales MD [address] [place] [address] PCP - General Family Medicine 05/12/22 documented as of this encounter
--- OUTSIDE RECORDS SUMMARY | 2025-02-24 13:54 | XMS_ITS | Encounter Summary ---
Author Organization [facility] Address [address] [place] [address] Care Team Providers Care Physical Therapist Technician Name Role Phone Nathaniel Corrales MD Primary Care Provider [phone] Encounter Details Date Type Department Care Team (Late st Contact Info) Description 01/02/2025 Results Follow-Up Family Physicians [facility] [address] [facility] [place] [address] Shahnaz An, GOPAL [address] [place] [address] XR Spine Lumbar Complete 4 Or More [...] on file Legal Sex Male 11:51 PM WAFER MOUNTER Gender Identity Male 03/24/2022 12:45 PM CDT Sexual Orientation Straight 03/24/2022 12 :45 PM CDT documented as of this encounter Plan of Treatment Not on file documented as of this encounter Visit Diagnoses Not on filedocumented in this encounter Care Teams Physical Therapist Technician Relationship Specialty Start Date End Date Nathaniel Corrales MD [address] [place] [address] PCP - General Family Medicine 05/12/22 documented as of this encounter
--- OUTSIDE RECORDS SUMMARY | 2025-02-24 13:54 | XMS_ITS | Encounter Summary ---
Author Organization [facility] Address [address] [place] [address] Phone Care Team Providers Care Calender Machine Operator Helper Name Role Phone Werner Sepulveda MD Primary Care Provi jasvir Arvind Zhou Primary Care Provider Werner Sepulveda MD Primary Care Provi jasvir Nathaniel Corrales MD Primary Care Provider [phone] Encounter Details Date Type Department Care Team (Late st Contact Info) Description 07/29/2017 Orders Only [facility] ProviderSusan MD [address] [place] [id number] Social History Tobacco Use Types Packs/Day Years Used Date Smoking Tobacco: Former Smokeless Tobacco: Former Alcohol Use Standard Drinks/Week Comments Yes 0 (1 standard drink = 0.6 oz pur e alcohol) Sex and Gender Information Value Date Recorded Sex Assigned at Not on file Legal Sex Male 11:51 PM EVENT COORDINATOR Gender Identity Male 03/24/2022 12:45 PM CDT Sexual Orientation Straight 03/24/2022 12 :45 PM CDT documented as of this encounter Plan of Treatment Not on file documented as of this encounter Procedures Procedure Name Priority Date/Time Associated Diagnosis Comments DISCHARGE LABORATORY CUMULATIVE REPORT 07/29/2017 12:00 AM EVENT COORDINATOR documented in this encounter Results * DISCHARGE LABORATORY CUMULATIVE REPORT (07/29/2017 12:00 AM EVENT COORDINATOR) Narrative 07/29/2017 12:00 AM EVENT COORDINATOR Ordered by an unspecified provider. us Historical Provider LAB BLOOD ORDERABLES Brie l Result documented in this encounter Visit Diagnoses Not on filedocumented in this encounter Additional Health Concerns Infection Onset Date Last Indicated Resolved Time COVID: Suspected 07/28/2023 07/28/2023 07/28/2023 12:08 PM EVENT COORDINATOR documented as of this encounter Care Teams Calender Machine Operator Helper Relationship Specialty Start Date End Date Werner Sepulveda MD PCP - General 11/20/16 09/08/21 Arvind Zhou PA [address] [facility] [place] [address] PCP - General Internal Medicine 09/09/21 03/22/22 Werner Sepulveda MD [address] [facility] [place] [address] PCP - General Internal Medicine 03/23/22 05/11/22 Nathaniel Corrales MD [address] [place] [address] PCP - General Family Medicine 05/12/22 documented as of this encounter
--- OUTSIDE RECORDS SUMMARY | 2025-02-24 13:54 | XMS_ITS | Clinical Summary ---
Author Organization [facility] Address [address] [facility] [address] Care Team Providers Care Behavioral Interventionist Name Role Phone Werner Sepulveda MD Primary Care Provi jasvir Yani Pena RN Unavailable [phone] Arvind Tamayo RN Unavailable Unavailab le Source Comments [facility],non-owned Affiliates and Associated Physician Practices is amultiple site organization consisting of ambulatory clinics and hospital sitesin [place], [place], [place] and [place]. This disclosure is being madepursuant to the Care Everywhere program and may not contain all information available regarding this patient. Last updated 18.[facility] Allergies Active Allergy Reactions Criticality Noted [...] VACCINE, ADULT 3 DOSE 07/01/1996, 6,04/28/1996 INFLUENZA [id number], HISTORIC VACCINE 04/25/2020 INFLUENZA VACCINE 07/23/2021, 9,05/19/2018,2016,05/06/2010 [...] AM CDT Legal Sex Male 8:27 AM ICT SECURITY SPECIALIST Gender Identity Male 04/26/2024 10:37 AM CDT Sexual Orientation Straight 04/26/2024 10 :37 AM CDT Last Filed Vital Signs Vital Sign Reading Time Taken Comments Blood Pressure 120/68 08/31/2019 9:17 AM ICT SECURITY SPECIALIST Pulse 77 08/31/2019 9:17 AM ICT SECURITY SPECIALIST Temperature 36.4 C (97.5 F) 07/01/2017 11:29 AM ICT SECURITY SPECIALIST Respiratory Rate 16 07/01/2017 11:29 AM ICT SECURITY SPECIALIST Oxygen Saturation 97% 08/31/2019 9:17 AM ICT SECURITY SPECIALIST Inhaled Oxygen Concentration - - Weight 88.2 kg (194 lb 8 oz) 06/07/2018 10:50 AM CDT Height 180.3 cm (5' 11) 08/31/2019 9:17 AM ICT SECURITY SPECIALIST Body Mass Index 27.13 06/07/2018 10:50 [...] this topic Medical Devices Implanted Type Area Lab Instructor Device Identifier Shelf Expiration Date Model / Serial / Lot Profix Metaphyseal Tibial Stem Implanted:Qty: 1 on 09/03/2014 by Sukhwinder Whitaker MD at [facility] Right: Knee [employer] 08/23/2022 [id number] / / [id number] Ins Tibial Hi Flex 5-6 X 9mm Implanted:Qty: 1 on 09/03/2014 by Sukhwinder Whitaker MD at [facility] Right: Knee [employer] 03/23/2024 [id number] / / [id number] Size 6 Porous Legion Coated Tibial Base Implanted:Qty: 1 on 09/03/2014 by Sukhwinder Whitaker MD at [facility] Right: Knee [employer] 09/23/2023 [id number] / / [id number] Size 7 Cruciate Retaining Femoral Component Implanted:Qty: 1 on 09/03/2014 by Sukhwinder Whitaker MD at [facility] Right: Knee [employer] 05/23/2022 [id number] / / [id number] 30 Mm Tibial Bone Screw Implanted:Qty: 1 on 09/03/2014 by Sukhwinder Whitaker MD at [facility] Right: Knee [employer] 01/21/2023 [id number] / / [id number] 25mm Tibial Bone Screw Implanted:Qty: 1 on 09/03/2014 by Sukhwinder Whitaker MD at [facility] Right: Knee [employer] 10/22/2023 [id number] / / [id number] 20mm Tibial Bone Screw Implanted:Qty: 1 on 09/03/2014 by Sukhwinder Whitaker MD at [facility] Right: Knee [employer] 10/22/2023 [id number] / / [id number] 20mm Tibial Bone Screw Implanted:Qty: 1 on 09/03/2014 by Sukhwinder Whitaker MD at [facility] Right: Knee [employer] 07/23/2023 [id number] / / [id number] Bill Only Giovanny Tib Uncem Fem Implanted:Qty: 1 on 09/03/2014 by Sukhwinder Whitaker MD at [facility] [employer] BILL ONLY BASIC GIOVANNY EXCLUDES AGC KN SNOR / / Cmpnt Fem Kn Lt 7 Crcte Rtn Legion Lovell Implanted:Qty: 1 on 06/14/2017 by Sukhwinder Whitaker MD at [facility] Left: Knee [employer] 05/16/2027 [id number] / / [id number] Stem Tib 55mm 18mm Prfx Mtphsl Kn Implanted:Qty: 1 on 06/14/2017 by Sukhwinder Whitaker MD at [facility] Left: Knee [employer] 04/23/2027 [id number] / / [id number] Bsplt Tib Legion 6 Kn Lt Lovell Por Implanted:Qty: 1 on 06/14/2017 by Sukhwinder Whitaker MD at [facility] Left: Knee [employer] 12/20/2026 [id number] / / [id number] Ins Tib 5-6 9mm Kn Xlpe Cr Hi Flxn Implanted:Qty: 1 on 06/14/2017 by Sukhwinder Whitaker MD at [facility] Left: Knee [employer] 06/21/2024 [id number] / / [id number] Screw Bsplt 25mm 6.5mm Gns2 Kn Tib Por Implanted:Qty: 1 on 06/14/2017 by Sukhwinder Whitaker MD at [facility] Left: Knee [employer] 04/26/2027 [id number] / / [id number] Screw 6.5mm 25mm Sphr Hip Actb Reflc Implanted:Qty: 1 on 06/14/2017 by Sukhwinder Whitaker MD at [facility] Left: Knee [employer] 11/09/2026 [id number] / / [id number] Screw Bsplt 20mm 6.5mm Gns2 Kn Tib Por Implanted:Qty: 1 on 06/14/2017 by Sukhwinder Whitaker MD at [facility] Left: Knee [employer] 10/05/2026 [id number] / / [id number] Screw Bsplt 25mm 6.5mm Gns2 Kn Tib Por Implanted:Qty: 1 on 06/14/2017 by Sukhwinder Whitaker MD at [facility] Left: Knee [employer] 11/29/2026 [id number] / / [id number] Hayder Basic Giovanny Excludes Agc Kn Implanted:Qty: 1 on 06/14/2017 by Sukhwinder Whitaker MD at [facility] [employer] BILL ONLY BASIC GIOVANNY EXCLUDES AGC KN SNOR / / [place] [address] MEDICARE [facility] [place] [address] [facility] MANAGED MEDICARE ADV Advance Directives Documents on File Type Date Recorded Patient Offset Lithographic Press Setter Expl anation Adv Directive/Living Will/POA 06/18/2017 4:39 [...] 11:09 AM 09/07/2014 3:34 PM Care Teams Behavioral Interventionist Relationship Specialty Start Date End Date Werner Sepulveda MD PCP - General Internal Medicine 08/20/14 Yani Pena, RN Real Estate Legal Assistant 09/03/14 Arvind Tamayo RN 06/14/17
--- OUTSIDE RECORDS SUMMARY | 2025-02-24 13:54 | XMS_ITS | Clinical Summary ---
Author Organization [facility] Address [address] [place] [id number] Care Team Providers Care Nurse Instructor Name Role Phone Nathaniel Corrales MD Primary Care Provider [phone] Allergies Active Allergy Reactions Criticality Noted Date [...] 1 tablet (75 mcg total) by mouth pipeline operator before breakfast 90 tablet 1 12/26/19 25 [...] implantable loop record er 01/25/2023 Overview (01/25/2023): [employer] Biomonitor IIIm Loop Recorder. Dx; Recurrent Syncope. DOI 01/25/2023- [employer] remote monitoring. Syncope and collapse 01/07/2023 Mild [...] stable Assessment & Plan (09/09/2021 10:42 AM DRONE SOFTWARE DEVELOPMENT ENGINEER): Work to keep wt stable Assessment & Plan (05/06/2021 9:26 AM CDT): Keep wtr stable Assessment & Plan (04/15/2021 11:57 AM CDT): Work to keep stable Or drop a few Bug bite 03/11/2021 Neoplasm of uncertain behavior of skin Small vessel disease 12/24/2020 Assessment & Plan (09/09/2021 10:46 AM DRONE SOFTWARE DEVELOPMENT ENGINEER): On ct and asa and tight risk contorll Assessment & Plan (05/06/2021 9:24 AM CDT): Tight risk contorll Assessment & Plan (04/15/2021 11:47 AM CDT): This appears likely the cause of hte mci and push on risk controll to try to stop the [id number] and reach 60 or les on ldl [...] 81. Assessment & Plan (08/26/2020 2:50 PM DRONE SOFTWARE DEVELOPMENT ENGINEER): psa on reutrn Assessment & Plan (05/22/2019 [...] diet Assessment & Plan (08/26/2020 2:50 PM DRONE SOFTWARE DEVELOPMENT ENGINEER): Check onretur To confirm corrections sontm Assessment & Plan (08/24/2018 11:33 AM DRONE SOFTWARE DEVELOPMENT ENGINEER): Nl blod cnts and nl iron Assessment [...] placement. Assessment & Plan (09/09/2021 10:41 AM DRONE SOFTWARE DEVELOPMENT ENGINEER): Asa and tight risk controll and rescan every coupld lyrs Assessment & Plan (04/15/2021 11:34 AM CDT): chreonic and check in evrey 1-2 yrs Tight risk contorl and asa Assessment & Plan (08/26/2020 2:45 PM DRONE SOFTWARE DEVELOPMENT ENGINEER): Post op stents and risk contorll With [...] taken. Assessment & Plan (08/24/2018 11:34 AM DRONE SOFTWARE DEVELOPMENT ENGINEER): Work to tighten risk and stay on [...] kidneys. Assessment & Plan (09/09/2021 10:44 AM DRONE SOFTWARE DEVELOPMENT ENGINEER): yr'ly 24 hr ruine cr cl an [...] kidneys. Assessment & Plan (08/24/2018 11:35 AM DRONE SOFTWARE DEVELOPMENT ENGINEER): Stable screenigns adbn yr'ly 24 hr urine. [...] surgery Assessment & Plan (07/29/2017 4:56 PM DRONE SOFTWARE DEVELOPMENT ENGINEER): Patient will continue on chronic anticoagulation with [...] tight Assessment & Plan (09/09/2021 10:46 AM DRONE SOFTWARE DEVELOPMENT ENGINEER): a1c check Assessment & Plan (05/06/2021 9:24 AM CDT): Check on reutnr Assessment & Plan (04/15/2021 11:41 AM CDT): a1c at 6.1 and 6.5 niddm . Assessment & Plan (12/24/2020 9:27 AM CDT): a1c at 6.2 and 6.5 niddm diet Assessment & Plan (08/26/2020 2:49 PM DRONE SOFTWARE DEVELOPMENT ENGINEER): A`1c pre diabetic and stable at 6.2 Assessment & Plan (02/07/2019 10:22 AM CDT): Check a1c on return Assessment & Plan (08/24/2018 11:32 AM DRONE SOFTWARE DEVELOPMENT ENGINEER): a1c at 5.9 and 5.6 nl. Assessment & Plan (01/11/2018 11:10 AM CDT): checkm a1c on return Assessment & Plan (09/06/2017 3:15 PM DRONE SOFTWARE DEVELOPMENT ENGINEER): Fasting 116 and elizabeth check a1c on [...] limited. Assessment & Plan (09/09/2021 10:42 AM DRONE SOFTWARE DEVELOPMENT ENGINEER): ldl sropped to 52 and tdrigs up [...] limited. Assessment & Plan (08/26/2020 2:49 PM DRONE SOFTWARE DEVELOPMENT ENGINEER): ldl moises pped 30 to 75and good [...] limited. Assessment & Plan (08/24/2018 11:31 AM DRONE SOFTWARE DEVELOPMENT ENGINEER): ldl at 1`31 but statin skin tox. [...] limited. Assessment & Plan (09/06/2017 3:14 PM DRONE SOFTWARE DEVELOPMENT ENGINEER): ldl at 73 and great. Low enough [...] HYPERTENSION Assessment & Plan (09/09/2021 10:45 AM DRONE SOFTWARE DEVELOPMENT ENGINEER): bp good and kidney stableHypertension, Medical treament [...] kidneys. Assessment & Plan (08/26/2020 2:47 PM DRONE SOFTWARE DEVELOPMENT ENGINEER): The bp good and screening cr nl [...] kidneys. Assessment & Plan (09/22/2019 9:52 AM DRONE SOFTWARE DEVELOPMENT ENGINEER): Recommend DASH diet, heart healthy lifestyle, exercise. [...] bp. Assessment & Plan (09/06/2017 3:13 PM DRONE SOFTWARE DEVELOPMENT ENGINEER): bp good and no changes. Cont to watch, no diet linmits Assessment & Plan (07/29/2017 4:53 PM DRONE SOFTWARE DEVELOPMENT ENGINEER): Patient's blood pressure has been hypotensive outside [...] response. Assessment & Plan (09/09/2021 10:45 AM DRONE SOFTWARE DEVELOPMENT ENGINEER): Stay on and check tsh on return [...] chagds Assessment & Plan (08/26/2020 2:48 PM DRONE SOFTWARE DEVELOPMENT ENGINEER): Check on reoutrn Assessment & Plan (01/11/2018 11:08 AM CDT): Cont omeds and check yr'ly if good Assessment & Plan (09/06/2017 3:15 PM DRONE SOFTWARE DEVELOPMENT ENGINEER): Cont thyroid meds and will check on return Osteoarthritis of knee 01/06/2014 Overview (11/28/2016): DJD (degenerative joint disease) of knee Assessment & Plan (07/29/2017 4:58 PM DRONE SOFTWARE DEVELOPMENT ENGINEER): He is now status post knee replacement. [...] asa Assessment & Plan (09/09/2021 10:45 AM DRONE SOFTWARE DEVELOPMENT ENGINEER): On asa and stable and not on formal anticaoag Assessment & Plan (04/15/2021 11:55 AM CDT): Asa felt enough for now Assessment & Plan (08/26/2020 2:49 PM DRONE SOFTWARE DEVELOPMENT ENGINEER): On asa and no breakthru Assessment & Plan (08/24/2018 11:33 AM DRONE SOFTWARE DEVELOPMENT ENGINEER): Sty on asa daily Assessment & Plan (04/13/2018 3:21 PM CDT): Cont Anticoag. And monitor Essential hypertension 04/13/201811/02 Assessment & Plan (08/24/2018 11:32 AM DRONE SOFTWARE DEVELOPMENT ENGINEER): bp high at home and great hewe. Bring in [id number] and cross check and confirm match and [...] 01/11/2018 Assessment & Plan (09/06/2017 3:12 PM DRONE SOFTWARE DEVELOPMENT ENGINEER): albulmin low and will heal better if get protien jakob. Discussed protein supplements Abnormal weight loss 09/06/2017 019 Assessment & Plan (09/06/2017 3:20 PM DRONE SOFTWARE DEVELOPMENT ENGINEER): Wt loss without [id number]. Trouble getting to sleep. Poor appetite. Trial remeron 15 at Bedtime . Re eval in a moth Dry skin dermatitis 08/25/2017 01/12/20 18 Assessment & Plan (08/25/2017 2:37 PM DRONE SOFTWARE DEVELOPMENT ENGINEER): Thyroid meds on and not changed and good in the Past. Go up to 3-4 Fish oil a day. stopt he hot water . Medrol pack. triamacinaoone and eucerin cream together o skin 2-3 times a day. Check thuyroid if needed Other fatigue 07/29/2017 01/11/2018 Assessment & Plan (07/29/2017 4:54 PM DRONE SOFTWARE DEVELOPMENT ENGINEER): Fatigue is likely multifactorial. He recently had [...] 01/11/2018 Assessment & Plan (07/29/2017 4:51 PM DRONE SOFTWARE DEVELOPMENT ENGINEER): No signs or symptoms of secondary infection [...] Team Description 02/20/2025 Telephone [facility] [address] [address] Nathaniel Corrales MD Med Refill ( meloxicam (MOBIC) 7.5 mg tablet/ tiZANidine (ZANAFLEX) 2 mg tablet) 02/20/2025 Orders Only [facility] [address] [place] [phone] Shan Bulter MD Status post placement of implantable loop recorder (Primary Dx); Syncope, unspecified syncope type 02/12/2025 8:00 AM CDT Ancillary Procedure [facility] [address] [place] [phone] NICM (nonischemic cardiomyopathy) (HCC); Syncope and collapse; NSVT (nonsustained ventricular tachycardia) (HCC) 01/02/2025 Results Follow-Up [facility] [address] [address] Shahnaz An NP XR Spine Lumbar Complete 4 Or More 01/01/2025 8:00 AM CDT Ancillary Procedure [facility] [address] [place] [address] [address] Status post placement of implantable loop recorder (Primary Dx); NICM (nonischemic cardiomyopathy) ([facility]); Syncope and collapse; NSVT (nonsustained ventricular tachycardia) ([facility]) 12/29/2024 10:00 AM CDT Office Visit [facility] at [address] [place] [address] Shan Butler MD Carotid sinus syncope (Primary Dx); Status post placement of implantable loop recorder 12/27/2024 2:00 PM CDT - 12/27/2024 11:59 PM CDT Hospital Encounter [facility] [address] [place] [address] Acute bilateral low back pain without sciatica Discharge Disposition: Discharge to home or self care 12/26/2024 1:30 PM CDT Office Visit [facility] [address] [address] Shahnaz An NP Acute bilateral low back pain without sciatica (Primary Dx); BMI 26.0-26.9,adult 12/19/2024 Telephone [facility] [address] [address] Nathaniel Corrales MD Med Refill; [...] on file Legal Sex Male 11:51 PM DRONE SOFTWARE DEVELOPMENT ENGINEER Gender Identity Male 03/24/2022 12:45 PM [...] sciatica PSA SCREEN Routine 09/02/2023 2:05 PM DRONE SOFTWARE DEVELOPMENT ENGINEER Prostate cancer screening [facility] COLONOSCOPY Routine 08/01/2018 from Last 3 Months or Most Recently Relevant to Health Maintenance Results * DEVICE CHECK - REMOTE (01/02/2025 11:58 AM CDT) Anatomical Region Laterality Modality Other Narrative 01/22/2025 6:51 AM CDT [employer] Biomonitor IIIm Loop Recorder. Dx; Recurrent Syncope. [...] levels. Diffuse idiopathic skeletal hyperostosis is present. Tgdy-ww-yircnfir multilevel facet osteoarthritis. Probable right renal stone. The aorta is atherosclerotic. IMPRESSION: Age-indeterminate mild superior endplate L1 compression fracture. This can be further evaluated for MRI to evaluate for acuity. 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 THIS IS AN ELECTRONICALLY VERIFIED FINAL REPORT 12/31/2024 6:39 AM - Electronically signed by Stanton Gomez M.D. TH: TH Report ID: [id number] Reading Location: [id number] Procedure Note Stanton Gomez MD - 12/31/2024 [...] levels. Diffuse idiopathic skeletal hyperostosis is present. Elnn-hx-ejdawioi multilevel facet osteoarthritis. Probable right renal stone. The aorta is atherosclerotic. IMPRESSION: Age-indeterminate mild superior endplate L1 compression fracture. Thiscan be further evaluated for MRI to evaluate for acuity. 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 THIS IS AN ELECTRONICALLY VERIFIED FINAL REPORT 12/31/2024 6:39 AM - Electronically signed by Stanton Gomez M.D. TH: TH Report ID: [id number] Reading Location: [id number] us Shahnaz An BUSINESS ENGLISH INSTRUCTOR IMG XR PROCEDURES Final Res ult * PSA screen (09/02/2023 2:05 PM DRONE SOFTWARE DEVELOPMENT ENGINEER) PSA-Total 0.45 <=6.20 ng/mL [facility] [...] data last revised 21. Testing performed by: [facility], [address] [place] [address]., [id number] Blood 09/02/2023 2:05 PM DRONE SOFTWARE DEVELOPMENT ENGINEER 09/02/2023 5:18 PM DRONE SOFTWARE DEVELOPMENT ENGINEER Hortensia Virgen BUSINESS ENGLISH INSTRUCTOR LAB BLOOD ORDERABLES Final Result [facility] ([place] [address] [facility] Department [place] [address] * COLONOSCOPY (08/01/2018) [facility] Colonoscopy Unknown Historical Provider HEALTH MAINTENANCE Final Result from Last 3 Months or Most Recently Relevant to Health Maintenance Insurance [facility] MEDICARE ADVANTAGE MEDICARE [facility] MEDICARE [place] [address] [facility] MEDICARE ADVANTAGE Care Teams Nurse Instructor Relationship Specialty Start Date End Date [place] [address] PCP - General Family Medicine 05/12/22
--- OUTSIDE RECORDS SUMMARY | 2025-02-24 13:54 | XMS_ITS | Referral Summary ---
Author Organization [facility] Address [address] [place] [id number] Care Team Providers Care Claim Analyst Name Role Phone Nathaniel Corrales MD Primary Care Provider [phone] Encounters Date Type Department Care Team Description 02/20/2025 Telephone [facility] [address] [place] [address] Nathaniel Corrales MD Med Refill ( meloxicam (MOBIC) 7.5 mg tablet/ tiZANidine (ZANAFLEX) 2 mg tablet) 02/20/2025 Orders Only [facility] [address] [place] [phone] Shan Butler MD Status post placement of implantable loop recorder (Primary Dx); Syncope, unspecified syncope type 02/12/2025 8:00 AM CDT Ancillary Procedure [facility] [address] [place] [phone] NICM (nonischemic cardiomyopathy) (HCC); Syncope and collapse; NSVT (nonsustained ventricular tachycardia) (HCC) 01/02/2025 Results Follow-Up [facility] [address] [place] [address] Shahnaz An NP XR Spine Lumbar Complete 4 Or More 01/01/2025 8:00 AM CDT Ancillary Procedure [facility] [address] [place] [phone] Status post placement of implantable loop recorder (Primary Dx); NICM (nonischemic cardiomyopathy) ([facility]); Syncope and collapse; NSVT (nonsustained ventricular tachycardia) ([facility]) 12/29/2024 10:00 AM CDT Office Visit [facility] Cardiology at [address] [place] [address] Shan Butler MD Carotid sinus syncope (Primary Dx); Status post placement of implantable loop recorder 12/27/2024 2:00 PM CDT - 12/27/2024 11:59 PM CDT Hospital Encounter [facility] [address] [place] [address] Acute bilateral low back pain without sciatica Discharge Disposition: Discharge to home or self care 12/26/2024 1:30 PM CDT Office Visit [facility] [address] [phone] Shahnaz An NP Acute bilateral low back pain without sciatica (Primary Dx); BMI 26.0-26.9,adult 12/19/2024 Telephone [facility] [address] [address] Nathaniel Corrales MD Med Refill; [...] 1 tablet (75 mcg total) by mouth early childhood lead teacher before breakfast 90 tablet 1 12/26/19 [...] implantable loop record er 01/25/2023 Overview (01/25/2023): [employer] Loop Recorder. Dx; Recurrent Syncope. DOI 01/25/2023-Luke. [employer] remote monitoring. Syncope and collapse 01/07/2023 Mild [...] stable Assessment & Plan (09/09/2021 10:42 AM ORNAMENTER HAND): Work to keep wt stable Assessment & Plan (05/06/2021 9:26 AM CDT): Keep wtr stable Assessment & Plan (04/15/2021 11:57 AM CDT): Work to keep stable Or drop a few Bug bite 03/11/2021 Neoplasm of uncertain behavior of skin Small vessel disease 12/24/2020 Assessment & Plan (09/09/2021 10:46 AM ORNAMENTER HAND): On ct and asa and tight risk contorll Assessment & Plan (05/06/2021 9:24 AM CDT): Tight risk contorll Assessment & Plan (04/15/2021 11:47 AM CDT): This appears likely the cause of hte mci and push on risk controll to try to stop the [id number] and reach 60 or les on ldl [...] 81. Assessment & Plan (08/26/2020 2:50 PM ORNAMENTER HAND): psa on reutrn Assessment & Plan (05/22/2019 [...] diet Assessment & Plan (08/26/2020 2:50 PM ORNAMENTER HAND): Check onretur To confirm corrections sontm Assessment & Plan (08/24/2018 11:33 AM ORNAMENTER HAND): Nl blod cnts and nl iron Assessment [...] placement. Assessment & Plan (09/09/2021 10:41 AM ORNAMENTER HAND): Asa and tight risk controll and rescan every coupld lyrs Assessment & Plan (04/15/2021 11:34 AM CDT): chreonic and check in evrey 1-2 yrs Tight risk contorl and asa Assessment & Plan (08/26/2020 2:45 PM ORNAMENTER HAND): Post op stents and risk contorll With [...] taken. Assessment & Plan (08/24/2018 11:34 AM ORNAMENTER HAND): Work to tighten risk and stay on [...] kidneys. Assessment & Plan (09/09/2021 10:44 AM ORNAMENTER HAND): yr'ly 24 hr ruine cr cl an [...] kidneys. Assessment & Plan (08/24/2018 11:35 AM ORNAMENTER HAND): Stable screenigns adbn yr'ly 24 hr urine. [...] surgery Assessment & Plan (07/29/2017 4:56 PM ORNAMENTER HAND): Patient will continue on chronic anticoagulation with [...] tight Assessment & Plan (09/09/2021 10:46 AM ORNAMENTER HAND): a1c check Assessment & Plan (05/06/2021 9:24 AM CDT): Check on reutnr Assessment & Plan (04/15/2021 11:41 AM CDT): a1c at 6.1 and 6.5 niddm . 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 Assessment & Plan (01/11/2018 11:10 AM CDT): checkm a1c on return Assessment & Plan (09/06/2017 3:15 PM ORNAMENTER HAND): Fasting 116 and elizabeth check a1c on [...] limited. Assessment & Plan (09/09/2021 10:42 AM ORNAMENTER HAND): ldl sropped to 52 and tdrigs up [...] limited. Assessment & Plan (08/26/2020 2:49 PM ORNAMENTER HAND): ldl moises pped 30 to 75and good [...] limited. Assessment & Plan (08/24/2018 11:31 AM ORNAMENTER HAND): ldl at 1`31 but statin skin tox. [...] limited. Assessment & Plan (09/06/2017 3:14 PM ORNAMENTER HAND): ldl at 73 and great. Low enough [...] HYPERTENSION Assessment & Plan (09/09/2021 10:45 AM ORNAMENTER HAND): bp good and kidney stableHypertension, Medical treament [...] kidneys. Assessment & Plan (08/26/2020 2:47 PM ORNAMENTER HAND): The bp good and screening cr nl [...] kidneys. Assessment & Plan (09/22/2019 9:52 AM ORNAMENTER HAND): Recommend DASH diet, heart healthy lifestyle, exercise. [...] bp. Assessment & Plan (09/06/2017 3:13 PM ORNAMENTER HAND): bp good and no changes. Cont to watch, no diet linmits Assessment & Plan (07/29/2017 4:53 PM ORNAMENTER HAND): Patient's blood pressure has been hypotensive outside [...] response. Assessment & Plan (09/09/2021 10:45 AM ORNAMENTER HAND): Stay on and check tsh on return [...] chagds Assessment & Plan (08/26/2020 2:48 PM ORNAMENTER HAND): Check on reoutrn Assessment & Plan (01/11/2018 11:08 AM CDT): Cont omeds and check yr'ly if good Assessment & Plan (09/06/2017 3:15 PM ORNAMENTER HAND): Cont thyroid meds and will check on return Osteoarthritis of knee 01/06/2014 Overview (11/28/2016): DJD (degenerative joint disease) of knee Assessment & Plan (07/29/2017 4:58 PM ORNAMENTER HAND): He is now status post knee replacement. [...] asa Assessment & Plan (09/09/2021 10:45 AM ORNAMENTER HAND): On asa and stable and not on formal anticaoag Assessment & Plan (04/15/2021 11:55 AM CDT): Asa felt enough for now Assessment & Plan (08/26/2020 2:49 PM ORNAMENTER HAND): On asa and no breakthru Assessment & Plan (08/24/2018 11:33 AM ORNAMENTER HAND): Sty on asa daily Assessment & Plan (04/13/2018 3:21 PM CDT): Cont Anticoag. And monitor Essential hypertension 04/13/201811/02 Assessment & Plan (08/24/2018 11:32 AM ORNAMENTER HAND): bp high at home and great hewe. Bring in gtsx4ell and cross check and confirm match and [...] 01/11/2018 Assessment & Plan (09/06/2017 3:12 PM ORNAMENTER HAND): albulmin low and will heal better if get protien jakob. Discussed protein supplements Abnormal weight loss 09/06/2017 019 Assessment & Plan (09/06/2017 3:20 PM ORNAMENTER HAND): Wt loss without Qrj3bgy. Trouble getting to sleep. Poor appetite. Trial remeron 15 at Bedtime . Re eval in a moth Dry skin dermatitis 08/25/2017 01/12/20 18 Assessment & Plan (08/25/2017 2:37 PM ORNAMENTER HAND): Thyroid meds on and not changed and good in the Past. Go up to 3-4 Fish oil a day. stopt he hot water . Medrol pack. triamacinaoone and eucerin cream together o skin 2-3 times a day. Check thuyroid if needed Other fatigue 07/29/2017 01/11/2018 Assessment & Plan (07/29/2017 4:54 PM ORNAMENTER HAND): Fatigue is likely multifactorial. He recently had [...] 01/11/2018 Assessment & Plan (07/29/2017 4:51 PM ORNAMENTER HAND): No signs or symptoms of secondary infection [...] on file Legal Sex Male 11:51 PM ORNAMENTER HAND Gender Identity Male 03/24/2022 12:45 PM CDT [...] sciatica PSA SCREEN Routine 09/02/2023 2:05 PM ORNAMENTER HAND Prostate cancer screening HM COLONOSCOPY Routine 08/01/2018 from Last 3 Months or Most Recently Relevant to Health Maintenance Results * DEVICE CHECK - REMOTE (01/02/2025 11:58 AM CDT) Anatomical Region Laterality Modality Other Narrative 01/22/2025 6:51 AM CDT [employer] Loop Recorder. Dx; Recurrent Syncope. [...] levels. Diffuse idiopathic skeletal hyperostosis is present. Bsob-mv-xxebscrk multilevel facet osteoarthritis. Probable right renal stone. The aorta is atherosclerotic. IMPRESSION: Age-indeterminate mild superior endplate L1 compression fracture. This can be further evaluated for MRI to evaluate for acuity. 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 THIS IS AN ELECTRONICALLY VERIFIED FINAL REPORT 12/31/2024 6:39 AM - Electronically signed by Stanton Gomez M.D. TH: TH Report ID: [id number] Reading Location: [id number] Procedure Note Stanton Gomez MD - 12/31/2024 [...] levels. Diffuse idiopathic skeletal hyperostosis is present. Qwcl-dp-zxgwefte multilevel facet osteoarthritis. Probable right renal stone. The aorta is atherosclerotic. IMPRESSION: Age-indeterminate mild superior endplate L1 compression fracture. Thiscan be further evaluated for MRI to evaluate for acuity. 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 THIS IS AN ELECTRONICALLY VERIFIED FINAL REPORT 12/31/2024 6:39 AM - Electronically signed by Stanton Gomez M.D. TH: TH Report ID: [id number] Reading Location: [place] [address] Shahnaz An OUTSIDE B2B SALES IMG XR PROCEDURES Final Res ult * PSA screen (09/02/2023 2:05 PM ORNAMENTER HAND) PSA-Total 0.45 <=6.20 ng/mL AMINTA REYES) Comment: [...] data last revised 21. Testing performed by: [facility], [id number] [place] [address], [place]., [address] Blood 09/02/2023 2:05 PM ORNAMENTER HAND 09/02/2023 5:18 PM ORNAMENTER HAND Hortensia Virgen NP LAB BLOOD ORDERABLES Final Result AMINTA REYES 1 [facility] Department [place] [address] * COLONOSCOPY (08/01/2018) Colonoscopy Unknown us Historical Provider HEALTH MAINTENANCE Final Result from Last 3 Months or Most Recently Relevant to Health Maintenance Insurance [facility] MEDICARE ADVANTAGE [facility] Address: [address] [address] [place] [address] MEDICARE [facility] [place] [address] [place] [address] [facility] MEDICARE ADVANTAGE [facility] Address: [address] [address] [place] [address] Care Teams Claim Analyst Relationship Specialty Start Date End Date Nathaniel Corrales MD [address] [place] [address] PCP - General Family Medicine 05/12/22
--- OUTSIDE RECORDS SUMMARY | 2025-02-24 13:54 | XMS_ITS | Encounter Summary ---
Author Organization [facility] Address [address] [place] [address] Phone Care Team Providers Care Telemetry Rn Name Role Phone Werner Sepulveda MD Primary Care Provi jasvir Arvind Zhou Primary Care Provider Werner Sepulveda MD Primary Care Provi jasvir Nathaniel Corrales MD Primary Care Provider [phone] [phone] Encounter Details Date Type Department Care Team (Late st Contact Info) Description 08/30/2017 Orders Only [facility] ProviderSusan MD [address] [place] [id number] Social History Tobacco Use Types Packs/Day Years Used Date Smoking Tobacco: Former Smokeless Tobacco: Former Alcohol Use Standard Drinks/Week Comments Yes 0 (1 standard drink = 0.6 oz pur e alcohol) Sex and Gender Information Value Date Recorded Sex Assigned at Not on file Legal Sex Male 11:51 PM LEARNING CENTER INSTRUCTOR Gender Identity Male 03/24/2022 12:45 PM CDT Sexual Orientation Straight 03/24/2022 12 :45 PM CDT documented as of this encounter Plan of Treatment Not on file documented as of this encounter Procedures Procedure Name Priority Date/Time Associated Diagnosis Comments DISCHARGE LABORATORY CUMULATIVE REPORT 08/30/2017 12:00 AM LEARNING CENTER INSTRUCTOR documented in this encounter Results * DISCHARGE LABORATORY CUMULATIVE REPORT (08/30/2017 12:00 AM LEARNING CENTER INSTRUCTOR) Narrative 08/30/2017 12:00 AM LEARNING CENTER INSTRUCTOR Ordered by an unspecified provider. us Historical Provider LAB BLOOD ORDERABLES Brie l Result documented in this encounter Visit Diagnoses Not on filedocumented in this encounter Additional Health Concerns Infection Onset Date Last Indicated Resolved Time COVID: Suspected 07/28/2023 07/28/2023 07/28/2023 12:08 PM LEARNING CENTER INSTRUCTOR documented as of this encounter Care Teams Telemetry Rn Relationship Specialty Start Date End Date Werner Sepulveda MD PCP - General 11/20/16 09/08/21 Arvind Zhou PA [address] [place] [address] PCP - General Internal Medicine 09/09/21 03/22/22 Werner Sepulveda MD [address] [place] [address] PCP - General Internal Medicine 03/23/22 05/11/22 Nathaniel Corrales MD [address] [place] [address] PCP - General Family Medicine 05/12/22 documented as of this encounter
--- OUTSIDE RECORDS SUMMARY | 2025-02-24 13:54 | XMS_ITS | Encounter Summary ---
Author Organization [facility] Address [address] [place] [address] Phone Care Team Providers Care Truck Safety Inspector Name Role Phone Werner Sepulveda MD Primary Care Provi jasvir Arvind Zhou Primary Care Provider Werner Sepulveda MD Primary Care Provi jasvir Nathaniel Corrales MD Primary Care Provider [phone] Encounter Details Date Type Department Care Team (Late st Contact Info) Description 12/29/2017 Orders Only [facility] ProviderSusan MD [address] [place] [id number] Social History Tobacco Use Types Packs/Day Years Used Date Smoking Tobacco: Former Smokeless Tobacco: Former Alcohol Use Standard Drinks/Week Comments Yes 0 (1 standard drink = 0.6 oz pur e alcohol) Sex and Gender Information Value Date Recorded Sex Assigned at Not on file Legal Sex Male 11:51 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 Gender Identity Male 03/24/2022 12:45 PM [...] COVID: Suspected 07/28/2023 07/28/2023 07/28/2023 12:08 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 documented as of this encounter Care Teams Truck Safety Inspector Relationship Specialty Start Date End Date Werner Sepulveda MD PCP - General 11/20/16 09/08/21 Arvind Zhou PA [address] [place] [address] [place] [address] PCP - General Internal Medicine 09/09/21 03/22/22 Werner Sepulveda MD [address] [place] [address] PCP - General Internal Medicine 03/23/22 05/11/22 Nathaniel Corrales MD [address] [place] [address] PCP - General Family Medicine 05/12/22 documented as of this encounter
--- NOTE | 2025-02-24 14:22 | PC.NURSE ---
white goods appliance tech thinks results are inaccurate. FSBS obtained and is 108. ERP aware, says to hold new orders until labs are redone.
[2025-02-24 14:34] LABS: Hematocrit 38.3 % (37.0-46.0); Hemoglobin 12.6 g/dL (12.4-15.3); Mean Corpuscular HGB Conc 32.9 g/dL (32-36); Mean Corpuscular Hemoglobin 30.4 pg (27.0-31.0); Mean Corpuscular Volume 92.5 fL (78.0-102.0); Platelet Count Result 104 K/mm3 (150-420); Red Blood Count 4.14 M/mm3 (4.70-6.10); White Blood Count 5.6 K/mm3 (4.8-10.8)
[2025-02-24 14:35] LABS: Immature Platelet Fraction Pct 3.5 % (1.0-7.0)
[2025-02-24 14:56] LABS: Anion Gap 4 mmol/L (4-12); Blood Urea Nitrogen 32 mg/dL (9-20); Calcium 8.8 mg/dL (8.4-10.2); Carbon Dioxide 28 mmol/L (22-30); Chloride 103 mmol/L (98-107); Estimated CRCL calculation 37 ml/min; Estimated Glomerular Filt Rate 48; Glucose 104 mg/dL (65-110); Magnesium 1.5 mg/dL (1.6-2.3); Osmolality Calculated 286 mOsm/kg (285-295); Potassium 5.0 mmol/L (3.4-5.0); Sodium 135 mmol/L (137-145)
[2025-02-24] MEDS: MAGNESIUM SULF 2 GM/WATER 50ML 2 GM/50 ML BAG IVPB (16:08)
[2025-02-24 16:13] LABS: Add Urine Microscopic? YES; Appearance Urine Clear (Clear); Glucose Urine UA Negative (Negative); Leukocyte Esterase Ur Negative LEU/UL (Negative); Nitrate Urine Negative (Negative); Specific Grav Ur 1.025 (1.010-1.020)
--- NOTE | 2025-02-24 16:57 | PC.NURSE ---
Pt sitting up in bed, talking with family. Pt much more well-appearing than he was upon arrival to ER. Pt has been off of O2 for over an hour and O2 sats holding around 97%.
[2025-02-24 17:32] LABS: NT Pro B Type Natriuretic Pept 177 pg/mL (19.9-100); Troponin I < 0.012 ng/mL (0.000-0.034)
[2025-02-24 17:50] LABS: Thyroid Stimulating Hormone 3.480 uIU/mL (0.465-4.680)
== END 2025-02-24 18:59 | disposition home or self-care (01) ==
PROVIDERS: Emergency Provider Internal Medicine Critical Care Medicine; PCP Family Medicine
DX: E86.0 Dehydration (principal); R53.1 Weakness; N17.9 Acute kidney failure, unspecified; I10 Essential (primary) hypertension; E78.5 Hyperlipidemia, unspecified; E03.9 Hypothyroidism, unspecified; Z86.73 Personal history of transient ischemic attack (TIA), and cerebral infarction without residual deficits; Z79.01 Long term (current) use of anticoagulants; Z87.891 Personal history of nicotine dependence
CPT/HCPCS: 36415; 70450; 80048; 80053; 81001; 82550; 82948; 83605; 83690; 83735; 83880; 84443; 84484; 85025; 85027; 85055; 85610; 93005; 96365; 96366; 99284; J3475; J7030